=== PATIENT | female | born 1945 | race Caucasian/White ===

== ENCOUNTER → 2016-10-30 | Outpatient (CLI) | payer MEDICARE, OTHER ==
[~2016-10-30] MED LIST: AMLO5TAB4 PO; ASPI-664 PO; GLIP5TAB13 PO; HYD25 PO; LOSA50TA6 PO; METF500T4 PO; METO-429 PO; OMEP20CA16 PO; PRAV40TA76 PO
--- NOTE | 2016-10-30 23:14 | RADRPT ---
PROCEDURE: US bilateral lower extremity arteries. CLINICAL INDICATION: Bilateral leg pain. Claudication that interferes significantly with the caitlin ent's lifestyle. TECHNIQUE: Multiple longitudinal and transverse images of the bilateral lower extremity arteries w ere obtained with olivera scale, pulsed Doppler, and color Doppler imaging. COMPARISON: No prior studies are available for comparison. FINDINGS: Right ELECTRIC TAPE SLITTER:66 cm/sec PSFA:59 cm/sec MSFA:52 cm/sec DSFA:42 cm/sec POP:75 cm/sec BREWERY WORKER:42 cm/sec DPA:14 cm/sec Left ELECTRIC TAPE SLITTER:43 cm/sec PSFA:54 cm/sec MSFA:57 cm/sec DSFA:35 cm/sec POP:42 cm/sec BREWERY WORKER:16 cm/sec DPA:14 cm/sec The right ankle-brachial index is 1.49 and the left ankle-brachial index is 1.53. On the right side, there is normal triphasic flow in the femoral and popliteal systems. Biphasic fl ow is present in the right calf arteries. On the left side, there is normal triphasic flow in the common femoral artery and superficial femora l artery. Biphasic flow is present in the left popliteal artery and calf arteries. IMPRESSION: 1. Abnormal flow in the right calf arteries, left popliteal artery, and left calf arteries. The fi ndings may indicate significant stenosis. Correlation with CT angiogram should be considered. 2. Otherwise unremarkable study. RPTAT: QQ .Higinio Lincoln MD, Date Time Electronically viewed and signed by .Hgiinio Lincoln MD, on 10/30/2016 23:14 .R/
--- NOTE | 2016-10-30 23:17 | RADRPT ---
PROCEDURE: XR Left Ankle. CLINICAL INDICATION: Left ankle pain. TECHNIQUE: 3 views. Frontal, lateral, and oblique. COMPARISON: None. FINDINGS: There is no fracture or dislocation. The soft tissues are normal. Articular surfaces are intact. There are plantar and posterior calcaneal spurs. There is no lytic or blastic lesion. There is no radiopaque foreign body. IMPRESSION: 1. Calcaneal spurs. 2. Otherwise unremarkable images of the left ankle. RPTAT: QQ .Higinio Lincoln MD, MD Date Time Electronically viewed and signed by .Higinio Lincoln MD, MD on 10/30/2016 23:17 .R/
--- NOTE | 2016-10-30 23:18 | RADRPT ---
PROCEDURE: XR Right Ankle. CLINICAL INDICATION: Right ankle pain. TECHNIQUE: 3 views. Frontal, lateral, and oblique. COMPARISON: None. FINDINGS: There is no fracture or dislocation. The soft tissues are normal. Articular surfaces are intact. There is a posterior calcaneal spur. There is no lytic or blastic lesion. There is no radiopaque foreign body. IMPRESSION: 1. Posterior calcaneal spur. 2. Otherwise normal images of the right ankle. RPTAT: QQ .Higinio Lincoln MD, MD Date Time Electronically viewed and signed by .iHginio Lincoln MD, on 10/30/2016 23:18 .R/
--- NOTE | 2016-10-30 23:20 | RADRPT ---
PROCEDURE: XR Left Foot. CLINICAL INDICATION: Left foot pain. TECHNIQUE: Three views. Frontal, lateral, and oblique. COMPARISON: None. FINDINGS: There is an old nonunited fracture of the apophysis of the base of the fifth metatarsal. There is no acute fracture or dislocation. The soft tissues are unremarkable. There are degenerative changes of the first metatarsal phalangeal joint with joint space narrowing a nd osteophytes. There are plantar and posterior calcaneal spurs. There is no lytic or blastic lesion. There is no radiopaque foreign body. IMPRESSION: 1. 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 2. No acute fracture. 3. Degenerative changes of the first metatarsal phalangeal joint. 4. Plantar and posterior calcaneal spurs. 5. Otherwise unremarkable study. RPTAT: QQ .Higinio Lincoln MD, Date Time Electronically viewed and signed by .Higinio Lincoln MD, MD on 10/30/2016 23:20 .R/
--- NOTE | 2016-10-30 23:21 | RADRPT ---
PROCEDURE: XR Right Foot. CLINICAL INDICATION: Right foot pain. TECHNIQUE: Three views. Frontal, lateral, and oblique. COMPARISON: None. FINDINGS: There is no fracture or dislocation. The soft tissues are normal. The articular surfaces are intact. There are degenerative changes of the first metatarsal phalangea l joint with joint space narrowing and osteophytes. There is a posterior calcaneal spur. There is no lytic or blastic lesion. There is no radiopaque foreign body. IMPRESSION: 1. Degenerative changes of the first metatarsal phalangeal joint. 2. Posterior calcaneal spur. 3. No acute abnormality. RPTAT: QQ .Higinio Lincoln MD, MD Date Time Electronically viewed and signed by .Higinio Lincoln MD, on 10/30/2016 23:21 .R/
--- NOTE | 2016-10-30 23:22 | RADRPT ---
PROCEDURE: XR Left Shoulder. CLINICAL INDICATION: Left shoulder pain. TECHNIQUE: Three views. Frontal internal rotation, frontal external rotation, and scapular Y-view . COMPARISON: No prior study is available for comparison. FINDINGS: There is no fracture or dislocation. The soft tissues are normal. Articular surfaces are intact. There is no lytic or blastic lesion. There is no radiopaque foreign body. IMPRESSION: 1. Normal images of the left shoulder. RPTAT: QQ .Higinio Lincoln MD, MD Date Time Electronically viewed and signed by .Higinio Lincoln MD, on 10/30/2016 23:21 .R/
== END | disposition home or self-care (01) ==
LOC: VAS 16:13
PROVIDERS: ATTEND Internal Medicine
DX: I73.9 Peripheral vascular disease, unspecified (principal); M25.572 Pain in left ankle and joints of left foot; M25.571 Pain in right ankle and joints of right foot; M79.672 Pain in left foot; M79.671 Pain in right foot
CPT/HCPCS: 73030; 73610; 73630; 93922

== ENCOUNTER 2017-02-10 03:20 | Emergency (ER) | payer MEDICARE, OTHER ==
[~2017-02-10] VITALS: Ht 167.6 cm; Wt 75.5 kg
[2017-02-10 03:29] VITALS: Ht 167.6 cm; Wt 75.5 kg
[2017-02-10] MEDS ORDERED: SOD CHLORIDE 0.9% 500 ML IV STA (05:07)
[2017-02-10] MEDS ORDERED: LATA2.5D2 BOTH EYES (05:28)
--- NOTE | 2017-02-10 05:33 | ERD ---
ER Documentation Chief Complaint Date/Time DATE: 02/10/17 TIME: 05:28 Chief Complaint bilateral rib pain, cough x 1 week HPI 72-year-old female with a history of hypertension, CVA, and diabetes presenting to the ER for multiple complaints. She complains of 1 month of intermittent episodes of becoming very short of breath and having spasms all over her body where she feels like she cannot breathe. She also complains of occasional nausea. She was recently diagnosed with a UTI 2 days ago which she is taking medications for. Her primary care doctor is Dr. Saxena, with whom she has an appointment in 2 days. No fevers, chills, productive cough, chest pain, abdominal pain, or new headaches. ROS All systems reviewed and are negative except as per history of present illness. Medications Home Meds Reported Medications Latanoprost (Latanoprost) 2.5 Ml Drops, 1 DROP BOTH EYES QHS, #1 BOTTLE INSTILL 1 DROP DAILY INTO BOTH EYES IN THE EVENING 02/10/17 Metformin* (Glucophage*) 500 Mg Tab, 500 MG PO WITH LUNCH DINNER, #60 TAB 04/03/16 Pravastatin Sodium* (Pravastatin Sodium*) 40 Mg Tablet, 40 MG PO HS, TAB 04/03/16 Omeprazole* (Omeprazole*) 20 Mg Capsule.dr, 20 MG PO DAILY, CAP 03/13/15 Losartan Potassium* (Losartan Potassium*) 50 Mg Tablet, 50 MG PO BID, TAB 03/13/15 Metoprolol Tartrate* (Lopressor*) 50 Mg Tab, 50 MG PO BID, TAB 03/13/15 Amlodipine Besylate* (Norvasc*) 5 Mg Tablet, 5 MG PO DAILY, TAB 03/13/15 Discontinued Reported Medications Glipizide* (Glipizide*) 5 Mg Tablet, 5 MG PO AC BREAKFAST, TAB 04/03/16 Aspirin (Low Dose Aspirin) 81 Mg Tablet.dr, 81 MG PO DAILY 03/13/15 Hydrochlorothiazide* (Hydrochlorothiazide*) 25 Mg Tab, 25 MG PO DAILY, TAB 03/13/15 Allergies Allergies: Coded Allergies: Penicillins (Unverified Allergy, Mild, 02/10/17) cortisone (Unverified Allergy, Mild, 02/10/17) prednisone (Unverified Allergy, Mild, 02/10/17) Sulfa (Sulfonamide Antibiotics) (Unverified Allergy, Unknown, 02/10/17) PMhx/Soc History of Surgery: Yes (Hx of Cesarian Sections) Anesthesia Reaction: No Hx Neurological Disorder: Yes (STROKE WITH LEFT SIDED WEAKNESS) Hx Respiratory Disorders: Yes Hx Psychiatric Problems: No Hx Alcohol Use: No Hx Substance Use: No Hx Tobacco Use: Yes Smoking Status: Former smoker FmHx Family History: No diabetes Physical Exam Vitals Vital Signs Date Time Temp Pulse Resp B/P Pulse Ox O2 Delivery O2 Flow Rate FiO2 02/10/17 07:46 62 15 112/65 100 Room Air 02/10/17 07:30 66 15 118/63 100 Room Air 02/10/17 06:35 98.0 63 12 141/70 100 Room Air 02/10/17 05:36 97.9 63 15 143/65 100 02/10/17 03:29 98.6 96 10 170/80 98 Physical Exam Const: Well-appearing, no apparent distress Head: Atraumatic Eyes: Normal Conjunctiva ENT: Normal External Ears, Nose and Mouth. Neck: Full range of motion..~ No meningismus. Resp: Clear to auscultation bilaterally Cardio: Regular rate and rhythm, no murmurs Abd: Soft, non tender, non distended. Normal bowel sounds Skin: No petechiae or rashes Back: No midline or flank tenderness Ext: No cyanosis, or edema Neur: Awake and alert Psych: Normal Mood and Affect Result Diagram: 02/10/17 0520 02/10/17 0507 Results 24 hrs Laboratory Tests Test 02/10/17 05:07 02/10/17 05:20 Sodium Level 143mmol/L Potassium Level 4.1mmol/L Chloride Level 104mmol/L Carbon Dioxide Level 25mmol/L Anion Gap 18 Blood Urea Nitrogen 25mg/dl Creatinine 0.63mg/dl Glucose Level 152mg/dl Calcium Level 9.5mg/dl Troponin I 0.014ng/ml White Blood Count 12.310^3/ul Red Blood Count 4.0110^6/ul Hemoglobin 13.1g/dl Hematocrit 39.0% Mean Corpuscular Volume 97.3fl Mean Corpuscular Hemoglobin 32.7pg Mean Corpuscular Hemoglobin Concent 33.6g/dl Red Cell Distribution Width 12.5% Platelet Count 93664^3/UL Mean Platelet Volume 8.9fl Neutrophils % 75.9% Lymphocytes % 19.1% Monocytes % 3.7% Eosinophils % 0.8% Basophils % 0.2% Nucleated Red Blood Cells % 0.0/100WBC Neutrophils # 9.410^3/ul Lymphocytes # 2.410^3/ul Monocytes # 0.510^3/ul Eosinophils # 0.110^3/ul Basophils # 0.010^3/ul Nucleated Red Blood Cells # 0.010^3/ul Prothrombin Time 11.9Sec Prothrombin Time Ratio 0.9 INR International Normalized Ratio 0.88 Activated Partial Thromboplast Time 28.9Sec Current Medications Medications (Trade) Dose Ordered Sig/Doris Route PRN Reason Start Time Stop Time Status Last Admin Dose Admin Sodium Chloride (NS) 500 ml @ 500 mls/hr Q1H STAT IV 02/10/17 05:07 02/10/17 06:06 DC 02/10/17 05:32 Procedures/[facility] EKG: Rate/Rhythm: Normal Sinus Rhythm QRS, ST, T-waves: No changes consistent w/ acute ischemia, nonspecific T- wave abnormality Impression: No evidence of ischemia or arrhythmia Labs CBC: pending BMP: mild elevation in BUN, No evidence of electrolyte abnormality, renal failure, hypoglycemia, liver failure, or biliary obstruction Troponin within normal limits Chest x-ray: IMPRESSION: 1. Cardiomegaly. 2. Calcified thoracic aortic arch. 3. A shallow inspiration. 4. Mild bibasilar subsegmental atelectasis. [facility] Patient is presenting with nonspecific symptoms for 1 month. She is hemodynamically stable with an unremarkable exam. Basic labs and chest Xray were ordered. I have a low suspicion for ACS,PE, seizures, serious infection, or acute CVA. I believe the patient's symptoms are stable and she is appropriate for continued outpatient follow up and work up. Once her CBC results , I believe patient can go home with reassurance. Patient signed out to Dr. Cr, who will follow up on the CBC and if no serious abnormalities, may discharge patient home. Departure Diagnosis: Primary Impression: Dyspnea Dyspnea type: unspecified Qualified Code: R06.00 - Dyspnea, unspecified type Additional Impression: Muscle spasm Condition: Stable DAWSON GONCALVES MD Feb 10, 2017 05:33
--- NOTE | 2017-02-10 05:41 | RADRPT ---
PROCEDURE: CHEST - 1 VIEW CLINICAL INDICATION: 72-year-old female with shortness of breath. TECHNIQUE: A single frontal AP portable view of the chest was performed. The images were reviewed on a PACS workstation. COMPARISON: Chest x-ray May 04, 2016. FINDINGS: The radiograph is mildly rotated to the left. The cardiomediastinal silhouette is mildly enlarged. The thoracic aortic arch is calcified. There is a shallow inspiration. There is mild bibasilar meade bsegmental atelectasis. There is no evidence for an infiltrate. There is no evidence for congestiv e heart failure. There is no evidence for pneumothorax. The osseous structures are intact. IMPRESSION: 1. Cardiomegaly. 2. Calcified thoracic aortic arch. 3. A shallow inspiration. 4. Mild bibasilar subsegmental atelectasis. .South Quinteros MD, Date Time Electronically viewed and signed by .South Quinteros MD, on 02/10/2017 05:41 .Kirill/
[2017-02-10 05:44] LABS: BASOPHILS % 0.2 % (0.0-2.0); EOSINOPHILS # 0.1 10^3/ul (0.0-0.5); EOSINOPHILS % 0.8 % (0.0-7.0); HEMOGLOBIN 13.1 g/dl (12.0-16.0); LYMPHOCYTES # 2.4 10^3/ul (0.8-2.9); LYMPHOCYTES % 19.1 % (15.0-51.0); MEAN CORPUSCULAR HEMOGLOBIN 32.7 pg (29.0-33.0); MEAN CORPUSCULAR HGB CONC 33.6 g/dl (32.0-37.0); MEAN CORPUSCULAR VOLUME 97.3 fl (82.0-101.0); MEAN PLATELET VOLUME 8.9 fl (7.4-10.4); MONOCYTE # 0.5 10^3/ul (0.3-0.9); MONOCYTES % 3.7 % (0.0-11.0); NEUTROPHIL # 9.4 10^3/ul (1.6-7.5); NEUTROPHILS % 75.9 % (39.0-77.0); PLATELET COUNT 327 10^3/UL (140-415); RED BLOOD COUNT 4.01 10^6/ul (4.20-5.40); RED CELL DISTRIBUTION WIDTH 12.5 % (11.5-14.5); WHITE BLOOD COUNT 12.3 10^3/ul (4.8-10.8)
[2017-02-10 05:59] LABS: INR 0.88; PARTIAL THROMBOPLASTIN TIME 28.9 Sec (25.0-35.0); PROTIME 11.9 Sec (12.2-14.2); PT RATIO 0.9
[2017-02-10 06:07] LABS: CALCIUM 9.5 mg/dl (8.4-10.2); CREATININE 0.63 mg/dl (0.44-1.00); POTASSIUM 4.1 mmol/L (3.5-5.1)
[2017-02-10 06:23] LABS: TROPONIN-I 0.014 ng/ml (0.00-0.12)
[2017-02-10 06:35] VITALS: TEMP 98
[2017-02-10 07:46] VITALS: BP 112/65; PULSE 62; RESP 15
== END 2017-02-10 07:59 | disposition home or self-care (01) ==
LOC: E/R 03:20
DX: R06.00 Dyspnea, unspecified (principal); I10 Essential (primary) hypertension; E11.9 Type 2 diabetes mellitus without complications; R06.02 Shortness of breath; Z79.82 Long term (current) use of aspirin; Z79.84 Long term (current) use of oral hypoglycemic drugs; Z87.891 Personal history of nicotine dependence
CPT/HCPCS: 36415; 71010; 80048; 84484; 85025; 85610; 85730; 99285; J7040

== ENCOUNTER 2017-03-05 13:38 | Inpatient (IN) | payer MEDICARE, OTHER ==
[~2017-03-05] VITALS: Ht 170.2 cm; Wt 66.9 kg
[~2017-03-05 13:38] MED LIST changes: -ASPI-664 PO; -GLIP5TAB13 PO; -HYD25 PO; +LATA2.5D2 BOTH EYES
--- NOTE | 2017-03-05 14:05 | ERA ---
ER Documentation Chief Complaint Date/Time DATE: 03/05/17 TIME: 14:04 Chief Complaint "WEIRD LIP FEELING" WITH SHAKING AND SOB HPI The patient is a 72-year-old female, presenting to the ER because of bilateral jaw tightness, difficulty speaking, somewhat short of breath began about 10:30 AM. She feels anxious and thinks that she may be having a stroke. She denies similar symptoms previously, denies fever, chills, syncope, near syncope, neck pain, chest pain, abdominal pain, vomiting with dysuria, diarrhea. She does not smoke nor drink, walks with a walker Past medical history: Hypertension, diabetes mellitus, dyslipidemia, hypothyroidism, GERD, history of stroke with minimal left hemiparalysis Past medical history: 2 ROS All systems reviewed and are negative except as per history of present illness. Medications Home Meds Reported Medications Omeprazole* (Omeprazole*) 20 Mg Capsule.dr, 40 MG PO DAILY, #30 CAP 03/05/17 Latanoprost (Latanoprost) 2.5 Ml Drops, 1 DROP BOTH EYES QHS, #1 BOTTLE INSTILL 1 DROP DAILY INTO BOTH EYES IN THE EVENING 02/10/17 Metformin* (Glucophage*) 500 Mg Tab, 500 MG PO WITH LUNCH DINNER, #60 TAB 04/03/16 Losartan Potassium* (Losartan Potassium*) 50 Mg Tablet, 50 MG PO BID, TAB 03/13/15 Metoprolol Tartrate* (Lopressor*) 50 Mg Tab, 50 MG PO BID, TAB 03/13/15 Amlodipine Besylate* (Norvasc*) 5 Mg Tablet, 5 MG PO DAILY, TAB 03/13/15 Discontinued Reported Medications Pravastatin Sodium* (Pravastatin Sodium*) 40 Mg Tablet, 40 MG PO HS, TAB 04/03/16 Omeprazole* (Omeprazole*) 20 Mg Capsule.dr, 20 MG PO DAILY, CAP 03/13/15 Allergies Allergies: Coded Allergies: Penicillins (Unverified Allergy, Mild, 03/05/17) cortisone (Unverified Allergy, Mild, 03/05/17) prednisone (Unverified Allergy, Mild, 03/05/17) Sulfa (Sulfonamide Antibiotics) (Unverified Allergy, Unknown, 03/05/17) PMhx/Soc History of Surgery: Yes (Hx of Cesarian Sections) Anesthesia Reaction: No Hx Neurological Disorder: Yes (STROKE WITH LEFT SIDED WEAKNESS) Hx Respiratory Disorders: Yes Hx Psychiatric Problems: No Hx Alcohol Use: No Hx Substance Use: No Hx Tobacco Use: Yes Physical Exam Vitals Vital Signs Date Time Temp Pulse Resp B/P Pulse Ox O2 Delivery O2 Flow Rate FiO2 03/05/17 15:21 71 18 159/87 100 Room Air 03/05/17 14:41 0 03/05/17 13:42 98.7 74 18 196/91 98 Physical Exam Const: No acute distress. Head: Atraumatic. Eyes: Normal Conjunctiva. ENT: Normal External Ears, Nose and Mouth. Neck: Full range of motion. No meningismus. Resp: Clear to auscultation bilaterally. Cardio: Regular rate and rhythm. Abd: Soft, non distended, normal bowel sounds, non tender. Skin: No petechiae or rashes. Back: No midline or flank tenderness. Ext: No cyanosis, or edema. Neur: Awake and alert. Right upper and lower extremity 5/5, left upper extremity and lower extremity 4+ Psych: Anxious Result Diagram: 03/05/17 1425 03/05/17 1425 Results 24 hrs Laboratory Tests Test 03/05/17 14:25 03/05/17 15:17 White Blood Count 7.910^3/ul Red Blood Count 4.2710^6/ul Hemoglobin 13.6g/dl Hematocrit 41.7% Mean Corpuscular Volume 97.7fl Mean Corpuscular Hemoglobin 31.9pg Mean Corpuscular Hemoglobin Concent 32.6g/dl Red Cell Distribution Width 12.8% Platelet Count 52143^3/UL Mean Platelet Volume 9.0fl Neutrophils % 58.5% Lymphocytes % 31.2% Monocytes % 7.2% Eosinophils % 2.2% Basophils % 0.6% Nucleated Red Blood Cells % 0.0/100WBC Neutrophils # (Manual) 4.610^3/ul Lymphocytes # 2.510^3/ul Monocytes # 0.610^3/ul Eosinophils # 0.210^3/ul Basophils # 0.110^3/ul Nucleated Red Blood Cells # 0.010^3/ul Prothrombin Time 12.0Sec Prothrombin Time Ratio 0.9 INR International Normalized Ratio 0.89 Activated Partial Thromboplast Time 27.8Sec Sodium Level 139mmol/L Potassium Level 3.9mmol/L Chloride Level 102mmol/L Carbon Dioxide Level 30mmol/L Anion Gap 11 Blood Urea Nitrogen 15mg/dl Creatinine 0.53mg/dl Glucose Level 139mg/dl Calcium Level 9.9mg/dl Troponin I < 0.012ng/ml Bedside Glucose 128mg/dL Procedures/MD[facility] [place] [address] Radiology Main Line: [phone] DIAGNOSTIC IMAGING REPORT Patient: DEJAH SMITH : 1945 Age: 72 Sex: F MR #: [id number] DOS: 03/05/17 140 Ordering MD: MILI RAMESH MD Location: E/R Room/Bed: PROCEDURE: XR Chest. CLINICAL INDICATION: Stroke. Dyspnea. TECHNIQUE: Single frontal chest x-ray. COMPARISON: None. FINDINGS: The lungs are clear of acute infiltrates, edema, effusions, or masses. Calcific atherosclerosis of the aorta is present.. Cardiomegaly is present.. The osseous structures are intact. IMPRESSION: No acute cardiopulmonary disease. Cardiomegaly with calcified aorta. RPTAT: GG .Etienne Marshall MD, MD Date Time Electronically viewed and signed by .Etienne Marshall MD, MD on 03/05/2017 14:56 .L/ CC: MILI RAMESH MD [place] [id number] Radiology Main Line: [phone] DIAGNOSTIC IMAGING REPORT Patient: DEJAH SMITH : 1945 Age: 72 Sex: F MR #: [id number] DOS: 03/05/17 1405 Ordering MD: MILI RAMESH MD Location: E/R Room/Bed: PROCEDURE: CT head without intravenous contrast CLINICAL INDICATION: Stroke. COMPARISON: MRI 05/06/2016 and 05/08/2016. TECHNIQUE: Axial CT images from skull base to vertex with coronal and sagittal reformats. DOSE: The estimated administered radiation dose was CTDI vol = 40 mGy. DLP = 789 mGy-cm. One or more of the following dose reduction techniques were used: automated exposure control, adjustment of the mA and/or kV according to patient size, or use of iterative reconstruction. FINDINGS: Parenchyma: Encephalomalacia and gliosis in the right frontal lobe and right parietal related to remote anterior cerebral artery territory infarction. No acute hemorrhage, large territorial infarction, or mass. Mild amount of periventricular and subcortical white matter hypodensity, a nonspecific finding often associated with chronic microangiopathy. Ventricles: Proportionate ex vacuo dilation of the right lateral ventricle. No ventricular effacement Extra-axial spaces: No herniation or midline shift. Paranasal sinuses: Clear. Mastoids and middle ears: Clear. Visualized orbits: Normal. Vessels: Moderate calcified atherosclerotic arterial plaque. Bones: Mild hyperostosis frontalis interna. Extracranial soft tissues: Normal. Additional comment: None. IMPRESSION: 1. No acute hemorrhage or large territorial infarction. 2. Old infarction in the right anterior cerebral artery territory. If there is high clinical suspicion for acute infarction, MRI is recommended for further evaluation because as a more sensitive examination. RPTAT: PP Physician Jose Date Time Electronically viewed and signed by Physician Jose on 03/05/2017 16: 20 LG/ CC: MILI RAMESH MD EKG: Read by emergency physician Rate/Rhythm: Normal Sinus Rhythm 64 beats/min QRS, ST, T-waves: No ST elevation, no T inversion. LAD, nonspecific T abnormality Impression: Abnormal EKG MEDICAL MAKING DECISION: The patient is a 72-year-old female, presenting to the ER because of dysphonia, concerning for TIA The differential diagnoses considered include but are not limited to TIA, impending CVA, anxiety attack, panic attack Departure Diagnosis: Primary Impression: TIA (transient ischemic attack) Condition: Stable Comments I discussed the findings with the patient. I discussed the patient with his physician Dr.Di Aburto who was made aware of the lab, the treatment, the patient condition. The patient is admitted to [facility] for 24 hr obs MILI RAMESH MD Mar 05, 2017 14:05
[2017-03-05 14:45] LABS: BASOPHIL # 0.1 10^3/ul (0.0-0.1); BASOPHILS % 0.6 % (0.0-2.0); EOSINOPHILS # 0.2 10^3/ul (0.0-0.5); EOSINOPHILS % 2.2 % (0.0-7.0); HEMATOCRIT 41.7 % (37.0-47.0); HEMOGLOBIN 13.6 g/dl (12.0-16.0); LYMPHOCYTES # 2.5 10^3/ul (0.8-2.9); LYMPHOCYTES % 31.2 % (15.0-51.0); MEAN CORPUSCULAR HEMOGLOBIN 31.9 pg (29.0-33.0); MEAN CORPUSCULAR HGB CONC 32.6 g/dl (32.0-37.0); MEAN CORPUSCULAR VOLUME 97.7 fl (82.0-101.0); MONOCYTE # 0.6 10^3/ul (0.3-0.9); MONOCYTES % 7.2 % (0.0-11.0); NEUTROPHILS % 58.5 % (39.0-77.0); PLATELET COUNT 302 10^3/UL (140-415); RED BLOOD COUNT 4.27 10^6/ul (4.20-5.40); RED CELL DISTRIBUTION WIDTH 12.8 % (11.5-14.5); WHITE BLOOD COUNT 7.9 10^3/ul (4.8-10.8)
[2017-03-05 14:55] LABS: INR 0.89; PT RATIO 0.9
[2017-03-05 14:56] LABS: PARTIAL THROMBOPLASTIN TIME 27.8 Sec (25.0-35.0)
[2017-03-05 14:57] LABS: ANION GAP 11 (8-16); BLOOD UREA NITROGEN 15 mg/dl (7-20); CALCIUM 9.9 mg/dl (8.4-10.2); CARBON DIOXIDE 30 mmol/L (21-31); CHLORIDE 102 mmol/L (97-110); CREATININE 0.53 mg/dl (0.44-1.00); GLUCOSE 139 mg/dl (70-220); POTASSIUM 3.9 mmol/L (3.5-5.1); SODIUM 139 mmol/L (135-144)
--- NOTE | 2017-03-05 14:57 | RADRPT ---
PROCEDURE: XR Chest. CLINICAL INDICATION: Stroke. Dyspnea. TECHNIQUE: Single frontal chest x-ray. COMPARISON: None. FINDINGS: The lungs are clear of acute infiltrates, edema, effusions, or masses. Calcific atherosclerosis of t he aorta is present.. Cardiomegaly is present.. The osseous structures are intact. IMPRESSION: No acute cardiopulmonary disease. Cardiomegaly with calcified aorta. RPTAT: GG .Etienne Marshall MD, MD Date Time Electronically viewed and signed by .Etienne Marshall MD, on 03/05/2017 14:56 .L/
[2017-03-05 15:13] LABS: TROPONIN-I < 0.012 ng/ml (0.00-0.12)
--- NOTE | 2017-03-05 16:21 | RADRPT ---
PROCEDURE: CT head without intravenous contrast CLINICAL INDICATION: Stroke. COMPARISON: MRI 05/06/2016 and 05/08/2016. TECHNIQUE: Axial CT images from skull base to vertex with coronal and sagittal reformats. DOSE: The estimated administered radiation dose was CTDI vol = 40 mGy. DLP = 789 mGy-cm. One or mor e of the following dose reduction techniques were used: automated exposure control, adjustment of th e mA and/or kV according to patient size, or use of iterative reconstruction. FINDINGS: Parenchyma: Encephalomalacia and gliosis in the right frontal lobe and right parietal related to rem ote anterior cerebral artery territory infarction. No acute hemorrhage, large territorial infarctio n, or mass. Mild amount of periventricular and subcortical white matter hypodensity, a nonspecific f inding often associated with chronic microangiopathy. Ventricles: Proportionate ex vacuo dilation of the right lateral ventricle. No ventricular effaceme nt Extra-axial spaces: No herniation or midline shift. Paranasal sinuses: Clear. Mastoids and middle ears: Clear. Visualized orbits: Normal. Vessels: Moderate calcified atherosclerotic arterial plaque. Bones: Mild hyperostosis frontalis interna. Extracranial soft tissues: Normal. Additional comment: None. IMPRESSION: 1. No acute hemorrhage or large territorial infarction. 2. Old infarction in the right anterior cerebral artery territory. If there is high clinical suspicion for acute infarction, MRI is recommended for further evaluation because as a more sensitive examination. RPTAT: PP Physician Jose Date Time Electronically viewed and signed by Physician Jose on 03/05/2017 16:20 LG/
[2017-03-05] MEDS ORDERED: OMEP20CA16 PO (16:27)
[2017-03-05 18:23] VITALS: Ht 170.2 cm; Wt 66.9 kg
[2017-03-05] MEDS ORDERED: ONDANSETRON 4 MG INJ IV PRN (19:00)
[2017-03-05] MEDS ORDERED: ACETAMINOPHEN 325 MG TAB PO PRN (19:00)
[2017-03-05] MEDS ORDERED: NACL 0.9% 3 ML SYG IV SCH (19:00)
[2017-03-05] MEDS ORDERED: GLUCOSE GEL 15 GRAM TUBE BUCCAL PRN (19:30)
[2017-03-05] MEDS ORDERED: DEXTROSE 50% 50 ML SYRINGE IV PRN ×2 (19:30)
[2017-03-05] MEDS ORDERED: GLUCOSE GEL 15 GRAM TUBE PO PRN ×2 (19:30)
[2017-03-05] MEDS ORDERED: GLUCAGON 1 MG INJ IM PRN (19:30)
[2017-03-05 19:45] VITALS: BP 140/70; RESP 19
[2017-03-05 20:02] VITALS: PULSE 70
[2017-03-05] MEDS ORDERED: LORAZEPAM 2 MG INJ IV ONE (20:30)
[2017-03-05] MEDS: INSULIN ASPART [NOVOLOG] 3 ML PEN SC SCH (21:00)
[2017-03-05] MEDS: LOSARTAN 50 MG TAB PO SCH (21:26)
[2017-03-05] MEDS: LATANOPROST 0.005% 2.5 ML OPH BOTH EYES SCH (21:26)
[2017-03-05] MEDS: METOPROLOL 50 MG TAB PO SCH (21:30)
[2017-03-05 23:53] VITALS: BP 114/59; RESP 19
[2017-03-06] VITALS (12 sets, daily range): BP systolic 90–147; BP diastolic 50–75; PULSE 55–77; RESP 17–20
[2017-03-06] MEDS ORDERED: VITAMIN A & D 5 GM OINT PACKET TOP ONE (00:21)
[2017-03-06] MEDS ORDERED: ACCU-CHEK XX SCH (02:00)
[2017-03-06] MEDS: ACCU-CHEK XX SCH (02:00)
--- NOTE | 2017-03-06 02:40 | HP ---
DATE OF ADMISSION: 03/05/2017 REASON FOR ADMISSION: "I think I am having a stroke." HISTORY OF PRESENT ILLNESS: This 72-year-old female says that she was in her usual state of health until today when she developed some jaw tightness, difficulty speaking, some left hand tingling. The patient has a history of 2 previous strokes. She developed left-sided weakness after the stroke. She has recovered from those strokes. However, she still has some minimal left hemiparesis. The patient is awake and alert at this time. She is able to give a history. She is oriented x3. Her brother, who lives with her, is in the room with her, and is able to give some of her history. The patient has been having shortness of breath for months. She said that she became more short of breath today. The patient denies fever, chills, syncope, near syncope, headache, and neck pain. She usually walks with a walker but was not walking today. PAST MEDICAL HISTORY: Remarkable for type 2 diabetes mellitus, hypertension, congestive heart failure, gastroesophageal reflux disease, hyperlipidemia, diabetic nephropathy, skin cancer, chronic kidney disease stage 3, diabetic neuropathy, and previous CVA x2. PAST SURGICAL HISTORY: Cholecystectomy 2006, appendectomy, right ear surgery, and skin cancers removed from face and left ear. FAMILY HISTORY: Father is of diabetes. Mother of unknown causes, but was in her late 90s. Siblings, cancer of the colon, TB, diabetes. SOCIAL HISTORY: The patient does not smoke. She is a former smoker. She has not smoked for more than 10 years. She does not drink alcohol. CURRENT MEDICATION: Includes the followin. Allopurinol 200 mg a day. 2. Omeprazole 40 mg a day. 3. Metformin 500 mg twice a day. 4. Losartan 50 mg twice a day. 5. Metoprolol 50 mg twice a day. 6. Amlodipine 5 mg a day. ALLERGIES: CODEINE, ERYTHROMYCIN, PENICILLIN. PHYSICAL EXAMINATION: GENERAL: At this time, reveals a thin female in no apparent distress. VITAL SIGNS: Temperature 99, pulse of 86, respirations 19, blood pressure 140/70, O2 sat 97 percent on room air. HEENT: Head normocephalic. Eyes, extraocular muscles intact. Nose and mouth are normal. NECK: Supple. No neck vein distention. LUNGS: Clear to auscultation. HEART: Regular rhythm. No murmurs, gallops, or rubs. ABDOMEN: Soft, nontender. No masses or megaly. EXTREMITIES: No peripheral edema. NEUROLOGIC: Grossly intact. No obvious focal neurologic deficits. IMPRESSION: 1. This patient presents now with left hand tingling with some difficulties speaking. The patient, at this time, has no obvious focal neurologic deficits on physical examination. She says that she "feels like I am having a stroke." She has had strokes in the past. She has recovered significantly from her previous strokes. CAT scan of the head done in the emergency room did not show anything new, just an old infarct in the right anterior cerebral artery territory. I will order an MRI of the brain. 2. Shortness of breath. There is no obvious reason for her shortness of breath. Her chest x-ray is normal. Her O2 sat is normal on room air. She does not seem short of breath on the physical examination. I suspect this may be a manifestation of anxiety. 3. Type 2 diabetes mellitus. 4. Hypertension. 5. Gastroesophageal reflux disease. 6. Hyperlipidemia. PLAN: 1. MRI of the brain. 2. Neurology consultation with Dr. Lobito Centeno, who knows the patient. 3. Resume routine medications. 4. Further neuro workup as per Dr. Centeno. Dictated By: Wiley Cameron MD /vladimir/sunni /Document#: [id number] LEYDI
[2017-03-06] MEDS ORDERED: ALPRAZOLAM 0.25 MG TAB PO ONE (04:00)
--- NOTE | 2017-03-06 06:00 | RADRPT ---
PROCEDURE: US Carotids. CLINICAL INDICATION: CVA, Bruit TECHNIQUE: Multiple sonographic of the carotid arteries were obtained utilizing olivera scale imaging . Color and Doppler imaging was performed. The images were reviewed on a PACS workstation. COMPARISON: No prior studies are available for comparison. FINDINGS: RIGHT: CCA 60.7 cm/sec Prox ICA 35.2 cm/sec Mid ICA 75.6 cm/sec Dist ICA 35.9 cm/sec ECA 73.2 cm/sec ICA/CCA 1.3 LEFT: CCA 75.9 cm/sec Prox ICA 40.3 cm/sec Mid ICA 65.3 cm/sec Dist ICA 77.9 cm/sec ECA 72.9 cm/sec ICA/CCA 1.2 Antegrade flow is seen within the vertebral arteries bilaterally. Mild plaque is seen within the car otid system bilaterally. However, no evidence for hemodynamically significant stenosis or occlusion is identified. IMPRESSION: 1. Mild soft and calcific plaque without evidence for hemodynamically significant stenosis or occlu светлана by NASCET criteria. 2. Antegrade flow seen within the vertebral arteries bilaterally. RPTAT: HH .Christen Moreland MD, Date Time Electronically viewed and signed by .Christen Moreland MD, on 03/06/2017 05:59 .G/
[2017-03-06] MEDS: INSULIN ASPART [NOVOLOG] 3 ML PEN SC SCH ×4 (08:00→21:00)
[2017-03-06 08:02] LABS: BASOPHILS % 0.4 % (0.0-2.0); EOSINOPHILS # 0.2 10^3/ul (0.0-0.5); EOSINOPHILS % 1.9 % (0.0-7.0); HEMATOCRIT 36.9 % (37.0-47.0); HEMOGLOBIN 11.8 g/dl (12.0-16.0); LYMPHOCYTES # 4.2 10^3/ul (0.8-2.9); LYMPHOCYTES % 40.6 % (15.0-51.0); MEAN CORPUSCULAR HEMOGLOBIN 31.4 pg (29.0-33.0); MEAN CORPUSCULAR VOLUME 98.1 fl (82.0-101.0); MEAN PLATELET VOLUME 9.3 fl (7.4-10.4); MONOCYTE # 0.9 10^3/ul (0.3-0.9); MONOCYTES % 8.5 % (0.0-11.0); NEUTROPHILS % 48.4 % (39.0-77.0); PLATELET COUNT 287 10^3/UL (140-415); RED BLOOD COUNT 3.76 10^6/ul (4.20-5.40); RED CELL DISTRIBUTION WIDTH 12.9 % (11.5-14.5); WHITE BLOOD COUNT 10.2 10^3/ul (4.8-10.8)
[2017-03-06 08:27] LABS: ADD UMIC YES; UR ASCORBIC ACID NEGATIVE (NEGATIVE); UR BACTERIA FEW /HPF (NONE SEEN); UR BILIRUBIN (Dip) NEGATIVE (NEGATIVE); UR BLOOD (Dip) NEGATIVE (NEGATIVE); UR CLARITY SLIGHTLY CLOUDY (CLEAR); UR COLOR YELLOW (YELLOW); UR GLUCOSE (Dip) NEGATIVE (NEGATIVE); UR KETONES (Dip) NEGATIVE (NEGATIVE); UR LEUKOCYTE ESTERASE (Dip) TRACE Leu/ul (NEGATIVE); UR NITRITE (Dip) NEGATIVE (NEGATIVE); UR RBC 3 /HPF (0-5); UR SPECIFIC GRAVITY (Dip) 1.019 (1.003-1.030); UR SQUAMOUS EPITHELIAL CELL FEW /HPF (FEW); UR TOTAL PROTEIN (Dip) NEGATIVE (NEGATIVE); UR UROBILINOGEN (Dip) NEGATIVE (NEGATIVE)
[2017-03-06 08:35] LABS: ALBUMIN 3.5 g/dl (3.3-4.9); ALBUMIN/GLOBULIN RATIO 1.29; BILIRUBIN,INDIRECT 0.2 mg/dl (0-1.1); BILIRUBIN,TOTAL 0.2 mg/dl (0.2-1.3); CALCIUM 9.3 mg/dl (8.4-10.2); CREATININE 0.6 mg/dl (0.44-1.00); POTASSIUM 4.1 mmol/L (3.5-5.1); TOTAL PROTEIN 6.2 g/dl (6.1-8.1)
--- NOTE | 2017-03-06 09:42 | RADRPT ---
PROCEDURE: MR Brain without intravenous contrast CLINICAL INDICATION: Transient ischemic attack. COMPARISON: CT 03/05/2017 and MRI 05/06/2016. TECHNIQUE: Multiplanar multi-sequence images of the brain were obtained. Images acquired on a 3.0 T esla magnet. FINDINGS: Parenchyma: Small focus of restricted diffusion within the right superior frontal gyrus at the anter ior middle cerebral artery borderzone territory (series 4, image 18). No acute hemorrhage. Chronic encephalomalacia, gliosis, hemosiderin, and gyral high T1 signal indicating cortical necrosi s related to remote anterior cerebral artery territory infarction in the right frontal lobe. Pineal calcification. The pituitary gland measures 13 mm in anterior-posterior dimension. Ventricles: Proportionate ex vacuo ventricular dilation of the right lateral ventricle. Extra-axial spaces: No herniation or midline shift. Orbits: Normal. Major intracranial flow voids: Preserved. Paranasal sinuses: Mild paranasal sinus mucosal thickening. Small mucous retention cyst or polyp in the right maxillary sinus. Mastoids and middle ears: Clear. Bones: Normal. Extracranial soft tissues: Normal. Additional comment: None. IMPRESSION: 1. Small acute infarction in the right superior frontal gyrus. No associated hemorrhage. 2. Chronic sequela of old right anterior cerebral artery territory infarction. Dr. Beverly discussed findings with Wiley Coleman , the clinician responsible for this patient, via telephone at 03/06/2017 9:41:26 AM with read back confirmation. RPTAT: PP Physician Jose Date Time Electronically viewed and signed by Physician Jose on 03/06/2017 09:42 LG/
[2017-03-06] MEDS: METOPROLOL 50 MG TAB PO SCH ×2 (10:29→21:00)
[2017-03-06] MEDS: PANTOPRAZOLE (EC) 40 MG TAB PO SCH (10:29)
[2017-03-06] MEDS: LOSARTAN 50 MG TAB PO SCH ×2 (10:29→21:00)
[2017-03-06] MEDS: AMLODIPINE 5 MG TAB PO SCH (10:30)
--- NOTE | 2017-03-06 13:09 | PN ---
Date/Time of Note Date/Time of Note DATE: 03/06/17 TIME: 13:03 Assessment/Plan VTE Prophylaxis VTE Prophylaxis Intervention: LMWH Lines/Catheters IV [facility]ter [facility]from [facility] Peripheral IV Urinary Cath still in place: No Assessment/Plan Chief Complaint/Hosp Course 1. She has had an acute CVA. Her MRI of the brain shows a small acute infarction in the right superior frontal gyrus. This is near the area where she had a previous stroke. According to the patient's brother she has been on Aggrenox; however, this is not included in her preadmission medication reconciliation. I will order this starting today. She also has not been taking atorvastatin according to her preadmission medication list. I will start this today. The patient is to be seen by her neurologist Dr. Centeno . I did speak to him by telephone yesterday and notified him that she is here. 2. The patient is lethargic this afternoon because she received some Xanax this morning. I have ordered physical therapy and occupational therapy for her. 3. Continue current medication, physical therapy and occupational therapy. Await follow-up by a neurologist. Problems: Subjective 24 Hr Interval Summary Free Text/Dictation The patient is sleeping. She did take a Xanax this morning. She also had Ativan when she had her MRI done early in the morning. The MRI does show a new small acute infarction in the brain. Constitutional: no complaints Gastrointestinal: no complaints Genitourinary: no complaints Musculoskeletal: no complaints Neurologic: no complaints Exam/Review of Systems Vital Signs Vitals Vital Signs Date Time Temp Pulse Resp B/P Pulse Ox O2 Delivery O2 Flow Rate FiO2 03/06/17 12:07 62 03/06/17 11:36 97.9 18 123/59 95 03/05/17 17:40 Room Air 03/05/17 14:41 0 Intake and Output 03/05/17 03/05/17 03/06/17 15:00 23:00 07:00 Intake Total 1000 ml Balance 1000 ml Exam Constitutional: frail, oriented Respiratory: clear to auscultation, normal air movement Gastrointestinal: soft Musculoskeletal: nl extremities to inspection Neurological: lethargic Results Result Diagram: 03/06/17 0725 03/06/17 0725 Results 24 hrs Laboratory Tests Test 03/05/17 14:25 03/05/17 15:17 03/05/17 20:47 03/06/17 02:00 White Blood Count 7.9 # Red Blood Count 4.27 Hemoglobin 13.6 Hematocrit 41.7 Mean Corpuscular Volume 97.7 Mean Corpuscular Hemoglobin 31.9 Mean Corpuscular Hemoglobin Concent 32.6 Red Cell Distribution Width 12.8 Platelet Count 302 Mean Platelet Volume 9.0 Neutrophils % 58.5 Lymphocytes % 31.2 Monocytes % 7.2 Eosinophils % 2.2 Basophils % 0.6 Nucleated Red Blood Cells % 0.0 Neutrophils # (Manual) 4.6 Lymphocytes # 2.5 Monocytes # 0.6 Eosinophils # 0.2 Basophils # 0.1 Nucleated Red Blood Cells # 0.0 Prothrombin Time 12.0 L Prothrombin Time Ratio 0.9 INR International Normalized Ratio 0.89 Activated Partial Thromboplast Time 27.8 Sodium Level 139 Potassium Level 3.9 Chloride Level 102 Carbon Dioxide Level 30 Anion Gap 11 Blood Urea Nitrogen 15 Creatinine 0.53 Glucose Level 139 Calcium Level 9.9 Troponin I < 0.012 Bedside Glucose 128 161 Urine Color YELLOW Urine Clarity SLIGHTLY CLOUDY A Urine pH 5.0 Urine Specific [place] 1.019 Urine Ketones NEGATIVE Urine Nitrite NEGATIVE Urine Bilirubin NEGATIVE Urine Urobilinogen NEGATIVE Urine Leukocyte Esterase TRACE A Urine Microscopic RBC 3 Urine Microscopic WBC 15 H Urine Squamous Epithelial Cells FEW Urine Bacteria FEW A Urine Hemoglobin NEGATIVE Urine Glucose NEGATIVE Urine Total Protein NEGATIVE Test 03/06/17 07:25 03/06/17 08:03 03/06/17 12:04 White Blood Count 10.2 # Red Blood Count 3.76 L Hemoglobin 11.8 L Hematocrit 36.9 L Mean Corpuscular Volume 98.1 Mean Corpuscular Hemoglobin 31.4 Mean Corpuscular Hemoglobin Concent 32.0 Red Cell Distribution Width 12.9 Platelet Count 287 Mean Platelet Volume 9.3 Neutrophils % 48.4 Lymphocytes % 40.6 Monocytes % 8.5 Eosinophils % 1.9 Basophils % 0.4 Nucleated Red Blood Cells % 0.0 Neutrophils # (Manual) 5.0 Lymphocytes # 4.2 H Monocytes # 0.9 Eosinophils # 0.2 Basophils # 0.0 Nucleated Red Blood Cells # 0.0 Sodium Level 139 Potassium Level 4.1 Chloride Level 100 Carbon Dioxide Level 27 Anion Gap 16 Blood Urea Nitrogen 29 #H Creatinine 0.60 Glucose Level 133 Hemoglobin A1c 6.3 H Calcium Level 9.3 Total Bilirubin 0.2 Direct Bilirubin 0.00 Indirect Bilirubin 0.2 Aspartate Amino Transf (AST/SGOT) 13 L Alanine Aminotransferase (ALT/SGPT) 29 Alkaline Phosphatase 61 Total Protein 6.2 Albumin 3.5 Globulin 2.70 Albumin/Globulin Ratio 1.29 Bedside Glucose 148 140 Medications Medications Current Medications Ondansetron HCl (Zofran Inj) 4 mg Q6H PRN IV NAUSEA AND/OR VOMITING; Start at 19:00 Acetaminophen (Tylenol Tab) 650 mg Q6H PRN PO PAIN LEVEL 1-3 OR FEVER; Start at 19:00 Amlodipine Besylate (Norvasc) 5 mg DAILY PO Last administered on 03/06/17 10: 30; Admin Dose 5 MG; Start 03/06/17 at 09:00 Latanoprost (Xalatan) 1 drop QHS BOTH EYES Last administered on 03/05/17 21:26 ; Admin Dose 1 DROP; Start 03/05/17 at 21:00 Losartan Potassium (Cozaar) 50 mg BID PO Last administered on 03/06/17 10:29; Admin Dose 50 MG; Start 03/05/17 at 21:00 Metoprolol Tartrate (Lopressor) 50 mg BID PO Last administered on 03/06/17 10: 29; Admin Dose 50 MG; Start 03/05/17 at 21:00 Pantoprazole (Protonix Tab) 40 mg DAILY@06 PO Last administered on 03/06/17 10 :29; Admin Dose 40 MG; Start 03/06/17 at 06:00 Miscellaneous Information 1 ea NOTE XX ; Start 03/05/17 at 19:30 Glucose (Glutose) 15 gm Q15M PRN PO DECREASED GLUCOSE; Start 03/05/17 at 19:30 Glucose (Glutose) 22.5 gm Q15M PRN PO DECREASED GLUCOSE; Start 03/05/17 at 19: 30 Dextrose (D50w Syringe) 25 ml Q15M PRN IV DECREASED GLUCOSE; Start 03/05/17 at 19:30 Dextrose (D50w Syringe) 50 ml Q15M PRN IV DECREASED GLUCOSE; Start 03/05/17 at 19:30 Glucagon (Glucagen) 1 mg Q15M PRN IM DECREASED GLUCOSE; Start 03/05/17 at 19:30 Glucose (Glutose) 15 gm Q15M PRN BUCCAL DECREASED GLUCOSE; Start 03/05/17 at 19 :30 Diagnostic Test (Pha) (Accu-Chek) 1 ea 02 XX ; Start 03/06/17 at 02:00 Dipyridamole/ Aspirin (Aggrenox) 1 cap BID PO ; Start 03/06/17 at 21:00 ILAN CASTELAN MD Mar 06, 2017 13:08
[2017-03-06] MEDS: metFORMIN 500 MG TAB PO SCH ×2 (13:49→17:42)
[2017-03-06] MEDS: ENOXAPARIN 40 MG/0.4 ML SYG SC SCH (13:52)
[2017-03-06 14:44] LABS: CHOL/HDL RATIO 3.8 RATIO
[2017-03-06] MEDS: LEVETIRACETAM 500 MG TAB PO SCH (21:42)
[2017-03-06] MEDS: ATORVASTATIN 40 MG TAB PO SCH (21:42)
[2017-03-06] MEDS: DIPYRIDAMOLE/ASPIRIN (SR) CAP PO SCH (21:43)
[2017-03-06] MEDS: LATANOPROST 0.005% 2.5 ML OPH BOTH EYES SCH (22:12)
[2017-03-07] VITALS (11 sets, daily range): BP systolic 112–124; BP diastolic 57–62; PULSE 63–73; RESP 16–19
[2017-03-07] MEDS: ACCU-CHEK XX SCH (02:00)
[2017-03-07] MEDS: PANTOPRAZOLE (EC) 40 MG TAB PO SCH (06:05)
[2017-03-07] MEDS: INSULIN ASPART [NOVOLOG] 3 ML PEN SC SCH ×4 (08:00→21:05)
[2017-03-07] MEDS: LOSARTAN 50 MG TAB PO SCH ×2 (08:49→21:00)
[2017-03-07] MEDS: AMLODIPINE 5 MG TAB PO SCH (08:49)
[2017-03-07] MEDS: DIPYRIDAMOLE/ASPIRIN (SR) CAP PO SCH ×2 (08:49→21:06)
[2017-03-07] MEDS: METOPROLOL 50 MG TAB PO SCH ×2 (08:49→21:06)
[2017-03-07] MEDS: LEVETIRACETAM 500 MG TAB PO SCH ×2 (08:49→21:06)
[2017-03-07] MEDS: ENOXAPARIN 40 MG/0.4 ML SYG SC SCH (08:50)
[2017-03-07] MEDS: metFORMIN 500 MG TAB PO SCH ×2 (12:27→17:38)
--- NOTE | 2017-03-07 12:59 | CONS ---
Date/Time of Note Date/Time of Note DATE: 03/07/17 TIME: 12:54 Assessment/Plan Assessment/Plan Chief Complaint/Hosp Course 1. She has had an acute CVA. Her MRI of the brain shows a small acute infarction in the right superior frontal gyrus. This is near the area where she had a previous stroke. According to the patient's brother she has been on Aggrenox; however, this is not included in her preadmission medication reconciliation. I will order this starting today. She also has not been taking atorvastatin according to her preadmission medication list. I will start this today. The patient was seen by her neurologist Dr. Centeno . He diagnosed her with a seizure disorder and started her on Keppra 500 mg BID . 2. The patient is lethargic this afternoon because she received some Xanax this morning. I have ordered physical therapy and occupational therapy for her. 3. Continue current medication, physical therapy and occupational therapy. Will start discharge planning . Problems: Consultation Date/Type/Reason Admit Date/Time Mar 05, 2017 at 17:00 Initial Consult Date 24 HR Interval Summary Free Text/Dictation She is feeling better today and is more awake . Constitutional: improved, no complaints Exam/Review of Systems Vital Signs Vitals Vital Signs Date Time Temp Pulse Resp B/P Pulse Ox O2 Delivery O2 Flow Rate FiO2 03/07/17 12:07 68 03/07/17 12:04 97.6 17 122/62 99 03/06/17 21:41 Room Air 03/05/17 14:41 0 Intake and Output 03/06/17 03/06/17 03/07/17 15:00 23:00 07:00 Intake Total 900 ml 300 ml Balance 900 ml 300 ml Exam Constitutional: alert, frail, oriented Psych: anxiety Respiratory: clear to auscultation, normal air movement Cardiovascular: regular rate and rhythm Gastrointestinal: non-tender, soft Musculoskeletal: nl extremities to inspection Neurological: BOX BENDER II-XII intact, nl mental status Results Result Diagram: 03/06/17 0725 03/06/17 0725 Results 24 hrs Laboratory Tests Test 03/06/17 17:14 03/06/17 21:48 03/07/17 00:38 03/07/17 08:17 Bedside Glucose 164 158 173 140 Test 03/07/17 11:51 Bedside Glucose 212 Medications Medications Current Medications Ondansetron HCl (Zofran Inj) 4 mg Q6H PRN IV NAUSEA AND/OR VOMITING; Start at 19:00 Acetaminophen (Tylenol Tab) 650 mg Q6H PRN PO PAIN LEVEL 1-3 OR FEVER; Start at 19:00 Amlodipine Besylate (Norvasc) 5 mg DAILY PO Last administered on 03/07/17 08: 49; Admin Dose 5 MG; Start 03/06/17 at 09:00 Latanoprost (Xalatan) 1 drop QHS BOTH EYES Last administered on 03/06/17 22:12 ; Admin Dose 1 DROP; Start 03/05/17 at 21:00 Losartan Potassium (Cozaar) 50 mg BID PO Last administered on 03/07/17 08:49; Admin Dose 50 MG; Start 03/05/17 at 21:00 Metoprolol Tartrate (Lopressor) 50 mg BID PO Last administered on 03/07/17 08: 49; Admin Dose 50 MG; Start 03/05/17 at 21:00 Pantoprazole (Protonix Tab) 40 mg DAILY@06 PO Last administered on 03/07/17 06 :05; Admin Dose 40 MG; Start 03/06/17 at 06:00 Miscellaneous Information 1 ea NOTE XX ; Start 03/05/17 at 19:30 Glucose (Glutose) 15 gm Q15M PRN PO DECREASED GLUCOSE; Start 03/05/17 at 19:30 Glucose (Glutose) 22.5 gm Q15M PRN PO DECREASED GLUCOSE; Start 03/05/17 at 19: 30 Dextrose (D50w Syringe) 25 ml Q15M PRN IV DECREASED GLUCOSE; Start 03/05/17 at 19:30 Dextrose (D50w Syringe) 50 ml Q15M PRN IV DECREASED GLUCOSE; Start 03/05/17 at 19:30 Glucagon (Glucagen) 1 mg Q15M PRN IM DECREASED GLUCOSE; Start 03/05/17 at 19:30 Glucose (Glutose) 15 gm Q15M PRN BUCCAL DECREASED GLUCOSE; Start 03/05/17 at 19 :30 Diagnostic Test (Pha) (Accu-Chek) 1 ea 02 XX ; Start 03/06/17 at 02:00 Dipyridamole/ Aspirin (Aggrenox) 1 cap BID PO Last administered on 03/07/17 08 :49; Admin Dose 1 CAP; Start 03/06/17 at 21:00 Atorvastatin Calcium (Lipitor) 40 mg HS PO Last administered on 03/06/17 21:42 ; Admin Dose 40 MG; Start 03/06/17 at 21:00 Enoxaparin Sodium (Lovenox) 40 mg DAILY SC Last administered on 03/07/17 08:50 ; Admin Dose 40 MG; Start 03/06/17 at 13:30 Levetiracetam (Keppra) 500 mg BID PO Last administered on 03/07/17 08:49; Admin Dose 500 MG; Start 03/06/17 at 21:00 ILAN CASTELAN MD Mar 07, 2017 12:59
[2017-03-07] MEDS: LORATADINE 10 MG TAB PO SCH (14:30)
[2017-03-07] MEDS: LATANOPROST 0.005% 2.5 ML OPH BOTH EYES SCH (21:04)
[2017-03-07] MEDS: ATORVASTATIN 40 MG TAB PO SCH (21:06)
[2017-03-08] VITALS (10 sets, daily range): BP systolic 110–148; BP diastolic 56–68; PULSE 68–79; RESP 16–19
[2017-03-08] MEDS: ACCU-CHEK XX SCH (02:00)
[2017-03-08] MEDS: PANTOPRAZOLE (EC) 40 MG TAB PO SCH (06:41)
[2017-03-08] MEDS: INSULIN ASPART [NOVOLOG] 3 ML PEN SC SCH ×3 (07:43→17:49)
--- NOTE | 2017-03-08 09:01 | PDOCDIS ---
Discharge Instructions CONDITION Patient Condition: Good HOME CARE INSTRUCTIONS: Diet Instructions: Reduced CalorieSpecial Diet: LOW FAT LOW CHOLESTEROL ACTIVITY: Activity Restrictions: Slowly Increase Activity Rest between Activity Avoid heavy lifting Do not Drive Do not operate Power Tool Weight Bearing Bathing Restrictions: Shower FOLLOW UP/APPOINTMENTS Follow-up Plan Dr Cameron and ILAN Moore MD Mar 08, 2017 09:01
--- NOTE | 2017-03-08 10:22 | HKNOTE ---
DATE OF SERVICE: 03/07/2017 Thank you for asking me to see the patient with you. The patient is having stroke with seizure activity in which you started her on Keppra 500 mg twice a day. The patient feels better today, no more seizure activity. EEG done using 10-20 International System, showed sharp wave slowing consistent with underlying postictal status. PHYSICAL EXAMINATION: On examination today the patient is accompanied by her brother in the room. She is alert, awake, oriented to time, place and person. Normal speech and normal language. CRANIAL NERVES: Cranial nerve II-XII intact. HEART: Regular rate and rhythm. LUNGS: Equal breath sounds. ABDOMEN: Soft. No tenderness. 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 Cranial nerves II, IV and : Extraocular muscles intact. Cranial nerve V: Equal sensation to face. Cranial nerve VII: Symmetrical face. Cranial nerve VIII: Decreased hearing bilaterally. Cranial nerves IX and X: Elevates palate. Cranial nerve XI: Elevates shoulder 5/5. Cranial nerve XII: With straight tongue. Motor exam: Decreased right hand box toe buffer 4+/5. Sensation decreased for glove and sock area for light touch and temperature. Coordination: [id number] test intact. ASSESSMENT: 1. The patient is a 72 year old with underlying seizure activity. Keep the patient on Keppra 500 mg twice a day. EEG was abnormal. Followup the patient in outpatient clinic for followup EEG. 2. Underlying stroke in which the patient is on Aggrenox 1 tablet twice a day. 3. Dyslipidemia. Keep the patient on Lipitor 40 mg once a day. 4. Diabetes mellitus. The patient is on Glucophage 500 mg twice a day. 5. Advised the patient to control her blood sugar as well as the diabetes to avoid extension of stroke as well as more seizure activity. 6. We talked to the patient about seizure precaution, her and her brother. The patient is complaining of about a breathing problem with episode of hyperventilation. Will 7. followup the patient in the outpatient clinic. Again, thank you Dr. Cameron, for asking me to see the patient with you. Dictated By: Lobito Centeno MD /vladimir/karyn /Document#: [id number]
--- NOTE | 2017-03-08 10:38 | CONS ---
DATE OF SERVICE: 03/06/2017 HISTORY OF PRESENT ILLNESS: The patient is a 72-year-old lady with a past medical history of stroke, left-sided weakness. The patient had treatment of the acute rehab at [facility]. The patient the last three months was noted by her brother that she had multiple events where she had black-out spells, moving upper and lower extremities. He said it happed three months ago, two months ago, 18 days ago and prior to admission, which her eyes rolled back on her head and had the tongue bitten. The patient was admitted to Dr. Andrade for followup and evaluation. We got a call about her. PHYSICAL EXAMINATION: GENERAL: On exam today the patient is awake, alert and oriented, following simple commands. HEART: Regular rate and rhythm. LUNGS: Equal breath sounds. ABDOMEN: Soft, nondistended, nontender. HELPER COORDINATOR: Cranial nerve II: Pupils equal on both sides, reactive to light. Cranial nerves II, IV and : Extraocular muscles intact. Cranial nerve V: Equal sensation to face. Cranial nerve VII: Symmetrical face. Cranial nerve VIII: Decreased hearing bilaterally. Cranial nerves IX and X: Elevates palate. Cranial nerve XI: Elevates shoulder 5/5. Cranial nerve XII: With straight tongue. Motor exam: Left side is 4+/5. Sensation decreased on the left side for light touch and temperature. Coordination: [id number]-[id number] test intact. ASSESSMENT: 1. The patient is a 72-year-old with underlying seizure activity. Followup the patient with electroencephalogram. I will add Keppra 500 mg twice a day. Followup the patient with seizure precautions. 2. Underlying lacunar infarction. Continue the patient's Aggrenox twice a day. 3. Dyslipidemia. Give the patient Lipitor 40 mg once a day. 4. History of diabetes. Followup the patient with sliding scale insulin and Accu-Chek. The patient will resume metformin 500 mg once a night. 5. History of hypertension. Keep the blood pressures less than 140/90 to avoid any extension of her stroke. The patient on Norvasc 5 mg, Cozaar 50 twice a day, Lopressor 50 twice a day. 6. MRI shows right superior frontal lacunar infarction which could precipitate seizure. 7. Underlying anxiety. Will use the patient's Xanax as needed. Thank you, Dr. Cameron, for asking me to see the patient with you. Dictated By: Lobito Centeno MD /vladimir/karyn /Document#: [id number]
[2017-03-08] MEDS: LORATADINE 10 MG TAB PO SCH (10:52)
[2017-03-08] MEDS: AMLODIPINE 5 MG TAB PO SCH (10:52)
[2017-03-08] MEDS: LEVETIRACETAM 500 MG TAB PO SCH (10:52)
[2017-03-08] MEDS: DIPYRIDAMOLE/ASPIRIN (SR) CAP PO SCH (10:52)
[2017-03-08] MEDS: LOSARTAN 50 MG TAB PO SCH (10:53)
[2017-03-08] MEDS: METOPROLOL 50 MG TAB PO SCH (10:53)
[2017-03-08] MEDS: ENOXAPARIN 40 MG/0.4 ML SYG SC SCH (10:54)
--- NOTE | 2017-03-08 10:56 | CONS ---
DATE OF SERVICE: 03/08/2017 INDICATIONS: The patient is a 72 year old with underlying history of stroke, seizure activity. TECHNICAL: EEG was done using 10/20 International electrode system with photic stimulation. Bilateral occipital hemispheric view shows theta waves 6-7 Hz, medium size, low amplitude, symmetric bilaterally. Some sharp wave recorded, the left temporal area. Photo stimulation done did not elicit drive. Some electromyogram artifact recorded. IMPRESSION: This is an abnormal electroencephalogram, shows sharp wave on top of consistent with the history of postictal status. Adjustment of medications recommended. Followup EEG may be needed. Dictated By: Lobito Centeno MD /vladimir/karyn /Document#: [id number]
--- NOTE | 2017-03-08 11:00 | DS ---
DATE OF ADMISSION: 03/07/2017 DATE OF DISCHARGE: 03/08/2017 HOSPITAL COURSE: The patient is a 72-year-old female was admitted through the emergency room after she presented with some difficulty with her speech and some locking of her jaw and tingling in the left hand. The patient with was admitted with a possible stroke. The CAT scan did not show any acute changes, it showed an old right-sided cerebral stroke. The patient did undergo an MRI scan of the brain, which did show a new small acute infarction in the right superior frontal gyrus. No associated hemorrhage. The patient was seen in consultation by Dr. Lobito Centeno, neurologist who knows the patient. He also felt that the patient was having seizures. He placed the patient on Keppra 500 mg twice a day. The patient will be sent home on the following medications. Loratadine 10 mg a day. Aggrenox 1 capsule twice a day. Atorvastatin 40 mg a day. Keppra 500 mg twice a day. Metformin 500 mg twice a day. Amlodipine 5 mg a day. Pantoprazole 40 mg a day. Xalatan eye drops at HS in each eye 1 drop. Losartan 50 mg a day. Metoprolol 50 mg twice a day. Tylenol as needed for pain. The patient was in good condition at the time of discharge. FOLLOWUP: The patient will see me in my office in 1-2 weeks. The patient will also see Dr. Caruso's in his office in 1-2 weeks. DISCHARGE DIAGNOSES: 1. 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 2. Seizure disorder. 3. Hypertension. 4. Type 2 diabetes mellitus. 5. Hyperlipidemia. Dictated By: Wiley Cameron MD /vladimir/chari /Document#: [id number]
[2017-03-08] MEDS: metFORMIN 500 MG TAB PO SCH ×2 (11:13→18:05)
== END 2017-03-08 18:31 | disposition home or self-care (01) | DRG 66 ==
LOC: E/R 13:38 → MS4 17:00 → OBSVTOIN 03-07 13:01
PROVIDERS: ADMIT Internal Medicine; ATTEND Internal Medicine
DX: I63.9 Cerebral infarction, unspecified (principal); G40.909 Epilepsy, unspecified, not intractable, without status epilepticus; E11.9 Type 2 diabetes mellitus without complications; I10 Essential (primary) hypertension; E78.5 Hyperlipidemia, unspecified; K21.9 Gastro-esophageal reflux disease without esophagitis
CPT/HCPCS: 36415; 70450; 70551; 71010; 80048; 80053; 80061; 81001; 82962; 83036; 84484; 85025; 85610; 85730; 92610; 93005; 93880; 95819; 97162; 97167; G0378; J1650; J1815; J2060; J2405

== ENCOUNTER 2017-03-28 21:07 | Inpatient (IN) | payer MEDICARE, OTHER ==
[~2017-03-28] VITALS: Ht 167.6 cm; Wt 68.3 kg
[~2017-03-28 21:07] MED LIST changes: -PRAV40TA76 PO
--- NOTE | 2017-03-28 21:28 | ERA ---
ER Documentation Chief Complaint Date/Time DATE: 03/28/17 TIME: 21:25 Chief Complaint BRUNO RA90 from home,confused per spouse report since 1999 HPI Patient is a 72-year-old female with history of diabetes, hypertension and previous stroke who presents to the ER with 40 minutes of confusion and difficulty speaking. Her states that he had seen her 10 minutes prior to onset and she was speaking normally. He denies any fever, vomiting, facial droop, focal weakness. Patient is unable to provide history due to aphasia on exam. ROS All systems reviewed and are negative except as per history of present illness. Medications Home Meds Reported Medications Levetiracetam* (Levetiracetam*) 500 Mg/5 Ml Solution, 500 MG PO BID, ML 03/28/17 Lorazepam* (Lorazepam*) 0.5 Mg Tablet, 0.5 MG PO Q8 Y for ANXIETY, TAB 03/28/17 Aspirin-Dipyridamole* (Aggrenox*) 25-200 Mg Cpmp.12hr, 1 CAP PO BID, CAP 03/28/17 Omeprazole* (Omeprazole*) 20 Mg Capsule.dr, 40 MG PO DAILY, #30 CAP 03/05/17 Latanoprost (Latanoprost) 2.5 Ml Drops, 1 DROP BOTH EYES QHS, #1 BOTTLE INSTILL 1 DROP DAILY INTO BOTH EYES IN THE EVENING 02/10/17 Metformin* (Glucophage*) 500 Mg Tab, 500 MG PO WITH LUNCH DINNER, #60 TAB 04/03/16 Losartan Potassium* (Losartan Potassium*) 50 Mg Tablet, 50 MG PO BID, TAB 03/13/15 Metoprolol Tartrate* (Lopressor*) 50 Mg Tab, 50 MG PO BID, TAB 03/13/15 Amlodipine Besylate* (Norvasc*) 5 Mg Tablet, 5 MG PO DAILY, TAB 03/13/15 Allergies Allergies: Coded Allergies: Penicillins (Unverified Allergy, Mild, 03/17/17) cortisone (Unverified Allergy, Mild, 03/17/17) prednisone (Unverified Allergy, Mild, 03/17/17) Sulfa (Sulfonamide Antibiotics) (Unverified Allergy, Unknown, 03/17/17) PMhx/Soc Past medical history: Diabetes mellitus, hypertension, CVA Past surgical history: Denies Social history: Denies tobacco or alcohol History of Surgery: Yes (2 c sec) Anesthesia Reaction: No Hx Neurological Disorder: Yes (cva, l sided weakness, sz) Hx Respiratory Disorders: No Hx Cardiac Disorders: Yes (cad, stent, htn) Hx Psychiatric Problems: Yes (anxiety) Hx Miscellaneous Medical Probl: Yes (DM, skin ca, CVAs) Hx Alcohol Use: No Hx Substance Use: No Hx Tobacco Use: Yes FmHx Family History: No coronary disease, No diabetes Physical Exam Vitals Vital Signs Date Time Temp Pulse Resp B/P Pulse Ox O2 Delivery O2 Flow Rate FiO2 03/28/17 23:50 103 19 139/69 98 03/28/17 23:35 102 18 130/80 98 03/28/17 23:20 99 16 143/66 99 03/28/17 23:05 102 23 147/97 100 03/28/17 22:50 98 23 158/87 100 03/28/17 22:35 101 24 161/88 100 03/28/17 22:20 100 25 176/103 100 03/28/17 22:10 101 17 187/98 100 03/28/17 21:31 Nasal Cannula 2 03/28/17 21:17 98.8 101 18 172/84 92 Physical Exam Const: Alert, no acute distress Head: Atraumatic Eyes: Normal Conjunctiva, No pallor, no icterus ENT: Normal External Ears, Nose and Mouth.Mucous membranes moist Neck: Full range of motion..~ No meningismus. Resp: Clear to auscultation bilaterally, No wheezes, no rales Cardio: Regular rate and rhythm, no murmurs Abd: Soft, non tender, non distended. Skin: No petechiae or rashes Back: No midline or flank tenderness Ext: No cyanosis, or edema Neur: Awake and alertAphasic, patient not answering questions appropriately, minimal speech with inappropriate response, nodding inappropriately. 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 Patient not following commands appropriately. Negative Babinski's bilaterally. Psych: Normal Mood and Affect Result Diagram: 03/28/17211903/28/172119 Results 24 hrs Laboratory Tests Test 03/28/17 21:20 White Blood Count 10.410^3/ul Red Blood Count 4.5310^6/ul Hemoglobin 14.9g/dl Hematocrit 43.6% Mean Corpuscular Volume 96.2fl Mean Corpuscular Hemoglobin 32.9pg Mean Corpuscular Hemoglobin Concent 34.2g/dl Red Cell Distribution Width 12.0% Platelet Count 98030^3/UL Mean Platelet Volume 9.1fl Neutrophils % 64.8% Lymphocytes % 26.7% Monocytes % 6.4% Eosinophils % 1.4% Basophils % 0.4% Nucleated Red Blood Cells % 0.0/100WBC Neutrophils # (Manual) 6.710^3/ul Lymphocytes # 2.810^3/ul Monocytes # 0.710^3/ul Eosinophils # 0.110^3/ul Basophils # 0.010^3/ul Nucleated Red Blood Cells # 0.010^3/ul Prothrombin Time 12.2Sec Prothrombin Time Ratio 1.0 INR International Normalized Ratio 0.91 Activated Partial Thromboplast Time 30.4Sec Sodium Level 139mmol/L Potassium Level 4.0mmol/L Chloride Level 101mmol/L Carbon Dioxide Level 29mmol/L Anion Gap 13 Blood Urea Nitrogen 18mg/dl Creatinine 0.66mg/dl Glucose Level 161mg/dl Hemoglobin A1c 6.2% Calcium Level 10.2mg/dl Total Bilirubin 0.2mg/dl Direct Bilirubin 0.00mg/dl Indirect Bilirubin 0.2mg/dl Aspartate Amino Transf (AST/SGOT) 15IU/L Alanine Aminotransferase (ALT/SGPT) 34IU/L Alkaline Phosphatase 189IU/L Troponin I < 0.012ng/ml Total Protein 7.9g/dl Albumin 4.3g/dl Globulin 3.60g/dl Albumin/Globulin Ratio 1.19 Current Medications Medications (Trade) Dose Ordered Sig/Doris Route PRN Reason Start Time Stop Time Status Last Admin Dose Admin Alteplase, Recombinant (Activase) 5.9 mg BOLUS OVER 1 MIN ONCE IV* 03/28/17 22:00 03/28/17 22:01 DC 03/28/17 22:03 Alteplase, Recombinant (Activase) 53.4 mg ISCHEMIC STROKE ONCE IV* 03/28/17 22:00 03/28/17 22:01 DC 03/28/17 22:03 Labetalol HCl (Labetalol) 10 mg ONCE ONCE IV 03/28/17 22:30 03/28/17 22:31 DC 03/28/17 22:40 Labetalol HCl (Labetalol) 20 mg STK-MED ONCE .ROUTE 03/28/17 22:17 03/28/17 22:18 DC IV Flush 10 ml 10 ml STK-MED ONCE .ROUTE 03/28/17 22:48 03/28/17 22:49 DC 03/28/17 23:24 Sodium Chloride 100 ml @ ud STK-MED ONCE .ROUTE 03/28/17 22:48 03/28/17 22:49 DC 03/28/17 23:25 Iohexol (Omnipaque) 100 ml @ ud STK-MED ONCE .ROUTE 03/28/17 22:48 03/28/17 22:49 DC 03/28/17 23:25 Iohexol (Omnipaque 350mg/ ml) 50 ml STK-MED ONCE .ROUTE 03/28/17 22:48 03/28/17 22:49 DC 03/28/17 23:25 Lorazepam (Ativan) 1 mg ONCE ONCE IV 03/28/17 23:30 03/28/17 23:31 DC 03/28/17 23:04 Lorazepam (Ativan) 2 mg STK-MED ONCE .ROUTE 03/28/17 23:03 03/28/17 23:04 DC Labetalol HCl (Labetalol) 10 mg Q10M PRN IV ELEVATED BLOOD PRESSURE 03/28/17 23:30 Acetaminophen (Tylenol Tab) 650 mg Q4H PRN PO Temp greater than 99.6F 03/28/17 23:30 Docusate Sodium (Colace) 100 mg BID PO 03/29/17 09:00 Latanoprost (Xalatan) 1 drop QHS BOTH EYES 03/29/17 21:00 Levetiracetam (Keppra Liquid) 500 mg BID PO 03/29/17 09:00 Miscellaneous Information (* Miscellaneous Pharmacy Order) Discontinue current oral sulfonylur... ONCE ONCE XX 03/28/17 23:30 03/28/17 23:31 DC Diagnostic Test (Pha) (Accu-Chek) 1 ea 02 XX 03/29/17 02:00 Miscellaneous Information (* Miscellaneous Pharmacy Order) HYPOGLYCEMIA PROTOCOL w... ONCE ONCE XX 9/6/17 23:30 03/28/17 23:31 DC Insulin Aspart (Novolog Insulin Pen) NOVOLOG *MILD* ALGORI... Q4 SC 03/29/17 01:00 Miscellaneous Information Discontinue all previ... ONCE ONCE XX 03/28/17 23:30 03/28/17 23:31 DC Dextrose (D5W) 1,000 ml @ 75 mls/hr [id number] IV 03/28/17 23:30 Lorazepam (Ativan) 0.5 mg Q8H PRN IV ANXIETY 03/28/17 23:30 Pantoprazole (Protonix Iv) 40 mg DAILY@06 IV 03/29/17 06:00 Miscellaneous Information 1 ea NOTE XX 03/28/17 23:45 Glucose (Glutose) 15 gm Q15M PRN PO DECREASED GLUCOSE 03/28/17 23:45 Glucose (Glutose) 22.5 gm Q15M PRN PO DECREASED GLUCOSE 03/28/17 23:45 Dextrose (D50w Syringe) 25 ml Q15M PRN IV DECREASED GLUCOSE 03/28/17 23:45 Dextrose (D50w Syringe) 50 ml Q15M PRN IV DECREASED GLUCOSE 03/28/17 23:45 Glucagon (Glucagen) 1 mg Q15M PRN IM DECREASED GLUCOSE 03/28/17 23:45 Glucose (Glutose) 15 gm Q15M PRN BUCCAL DECREASED GLUCOSE 03/28/17 23:45 Procedures/MDM EKG read by me: Time 2251, rate 97 Rhythm: Normal sinus [place]: Left axis deviation Intervals: Normal ST-T waves: T-wave flattening in lateral leads Ectopy: No Q-waves: No Impression: No evidence of ischemia or arrhythmia MDM: Patient is a 72-year-old female with history of multiple prior strokes as well as diabetes and hypertension who presents to the ER with acute alteration of mental status and difficulty speaking. She arrived in the ER approximately 50 minutes since her last known well time. On initial assessment, the patient had evidence of aphasia as well as some suggestion of neglect syndrome. A code stroke was called. Head CT did not show hemorrhage or acute change. The patient was assessed by the tele-neurologist, Dr. Marx, who believed that the patient was a good TPA candidate. I agreed that the patient met TPA criteria and did not have contraindications. Dr. Marx and I both discussed the risks and benefits of TPA extensively with the patient and her . The patient was not able to communicate appropriately, so the was determined to be the decision maker. He consented to TPA with full understanding of risks and benefits and the patient did not show any signs of objecting. TPA was administered within 3 hours of symptom onset. A CTA of the head and neck was performed and showed no acute occlusion. The patient was given labetalol for blood pressure control and had an appropriate response. There is no evidence of coronary ischemia, infection, or other acute medical condition. The patient does have a history of seizures, but there is no evidence of seizure disorder, and I do not believe that her presentation is likely to be due to seizure. She will be admitted to the ICU by Dr. De Leon for further neurologic workup and care. Critical Care Time: 45 minutes Treatments/Evaluations: Close monitoring and treatment of unstable vital signs, cardiorespiratory, and neurologic status, while maintaining tight balance of fluid, respiratory, and cardiac interventions. This time includes discussing the case with the patient and the patient's family. This time does not include all procedures stated elsewhere in this record. This time also includes reviewing old records, labs and radiological studies. This time includes examining and re-examining the patient. Additionally, this time also includes arranging care with admitting and consulting physicians. Departure Diagnosis: Primary Impression: Acute ischemic stroke Additional Impression: Hypertension Qualified Code: I10 - Essential hypertension Condition: MODESTO Ambriz MD Mar 28, 2017 21:28
[2017-03-28 21:30] LABS: BASOPHILS % 0.4 % (0.0-2.0); EOSINOPHILS # 0.1 10^3/ul (0.0-0.5); EOSINOPHILS % 1.4 % (0.0-7.0); HEMATOCRIT 43.6 % (37.0-47.0); HEMOGLOBIN 14.9 g/dl (12.0-16.0); LYMPHOCYTES # 2.8 10^3/ul (0.8-2.9); LYMPHOCYTES % 26.7 % (15.0-51.0); MEAN CORPUSCULAR HEMOGLOBIN 32.9 pg (29.0-33.0); MEAN CORPUSCULAR HGB CONC 34.2 g/dl (32.0-37.0); MEAN CORPUSCULAR VOLUME 96.2 fl (82.0-101.0); MEAN PLATELET VOLUME 9.1 fl (7.4-10.4); MONOCYTE # 0.7 10^3/ul (0.3-0.9); MONOCYTES % 6.4 % (0.0-11.0); NEUTROPHILS % 64.8 % (39.0-77.0); PLATELET COUNT 387 10^3/UL (140-415); RED BLOOD COUNT 4.53 10^6/ul (4.20-5.40); WHITE BLOOD COUNT 10.4 10^3/ul (4.8-10.8)
--- NOTE | 2017-03-28 21:39 | RADRPT ---
PROCEDURE: CT HEAD WITHOUT CONTRAST: CLINICAL INDICATION: 72 years of age, female, stroke . COMPARISON: CT brain March 17, 2017 TECHNIQUE: CT of the head was performed without IV contrast. Coronal and sagittal reformatted images were obtained from the axial source images. Images were reviewed on a high-resolution PACS workstat ion. Dose information: The estimated radiation dose (CTDIvol mGy) for each series in this exam is 43. Th e estimated cumulative dose (DLP mGy-cm) is 886. One or more of the following dose reduction techniques were used: - Automated exposure control. - Adjustment of the mA and/or kV according to patient size. - Use of iterative reconstruction technique. FINDINGS: Parenchyma: Negative for acute intracranial hemorrhage, significant mass effect or midline shift. There is an old right frontal SOPHIA territory infarct with encephalomalacia and ex vacuo dilatation of the frontal horn of the right lateral ventricle that is unchanged from prior exam. There are nonspe cific low density changes in the supratentorial deep white matter as before. East-white matter diffe rentiation is otherwise maintained. Moderate diffuse cerebral tissue loss. Severe intracranial athe rosclerosis in the anterior posterior circulations is unchanged from prior exam.. Ventricles and extra-axial spaces: Prominence of the ventricles proportionate to the sulci in keepin g with cerebral tissue loss. No abnormal extra-axial fluid collections are identified. Visualized paranasal sinuses: Clear. Mastoid air cells: Clear. Bones: No focal abnormality. Additional comment: None. IMPRESSION: 1. Old right SOPHIA territory infarct is unchanged from prior exam. Negative for evidence of new large territory vascular infarct. Negative for acute intracranial hemorrhage or mass effect. 2. Nonspecific patchy low density changes in the supratentorial deep white matter are nonspecific b ut likely due to chronic small vessel ischemia. If there is concern for recent ischemia, consider MR I brain for further evaluation. 3. Severe intracranial atherosclerosis. Findings were discussed with Dr Sandor Whitehead by Dr. Nancie Kaur on March 28, 2017 at 09:35 p. m.. RPTAT: HCTS Physician Susana Date Time Electronically viewed and signed by Viktoria Kaur Physician on 03/28/2017 21:39 CS/
[2017-03-28 21:52] LABS: ALANINE AMINOTRANSFERASE 34 IU/L (13-69); ALBUMIN 4.3 g/dl (3.3-4.9); ALBUMIN/GLOBULIN RATIO 1.19; ALKALINE PHOSPHATASE 189 IU/L (42-121); ANION GAP 13 (8-16); ASPARTATE AMINO TRANSFERASE 15 IU/L (15-46); BILIRUBIN,INDIRECT 0.2 mg/dl (0-1.1); BILIRUBIN,TOTAL 0.2 mg/dl (0.2-1.3); BLOOD UREA NITROGEN 18 mg/dl (7-20); CALCIUM 10.2 mg/dl (8.4-10.2); CARBON DIOXIDE 29 mmol/L (21-31); CHLORIDE 101 mmol/L (97-110); CREATININE 0.66 mg/dl (0.44-1.00); GLUCOSE 161 mg/dl (70-220); SODIUM 139 mmol/L (135-144); TOTAL PROTEIN 7.9 g/dl (6.1-8.1)
[2017-03-28 21:55] LABS: INR 0.91; PARTIAL THROMBOPLASTIN TIME 30.4 Sec (25.0-35.0); PROTIME 12.2 Sec (12.2-14.2)
[2017-03-28] MEDS ORDERED: ALTEPLASE (tPA) 1 MG/ML BOLUS SYG IV* ONE (22:00)
[2017-03-28] MEDS ORDERED: ALTEPLASE 100 MG INJ IV* ONE (22:00)
[2017-03-28 22:04] LABS: TROPONIN-I < 0.012 ng/ml (0.00-0.12)
[2017-03-28] MEDS ORDERED: LABETALOL HCL 20MG INJ ONE (22:17)
--- NOTE | 2017-03-28 22:29 | RADRPT ---
PROCEDURE: Portable chest x-ray. CLINICAL INDICATION: 72 years of age, female. Stroke. TECHNIQUE: Portable AP view of the chest. COMPARISON: None available. FINDINGS: Mild atherosclerotic calcification and tortuosity of thoracic aorta. Normal heart size. Lungs are clear. Negative for pleural effusion or pneumothorax. No acute bony abnormality. IMPRESSION: Negative for evidence of acute chest process. RPTAT: HCTS Physician Susana Date Time Electronically viewed and signed by Viktoria Kaur Physician on 03/28/2017 22:29 CS/
[2017-03-28] MEDS ORDERED: LABETALOL HCL 20MG INJ IV ONE (22:30)
[2017-03-28] MEDS ORDERED: SOD CHLORIDE 0.9% 100 ML ONE (22:48)
[2017-03-28] MEDS ORDERED: IOHEXOL 350MG/ML 50 ML BTL ONE (22:48)
[2017-03-28] MEDS ORDERED: IOHEXOL 100 ML ONE (22:48)
[2017-03-28] MEDS ORDERED: ASPI1CPM8 PO (22:51)
[2017-03-28] MEDS ORDERED: LEVE500S8 PO (22:53)
[2017-03-28] MEDS ORDERED: LORA0.5T PO (22:53)
[2017-03-28] MEDS ORDERED: LORAZEPAM 2 MG INJ ONE (23:03)
[2017-03-28] MEDS ORDERED: LORAZEPAM 2 MG INJ IV ONE (23:30)
[2017-03-28] MEDS ORDERED: ACETAMINOPHEN 325 MG TAB PO PRN (23:30)
[2017-03-28] MEDS ORDERED: LABETALOL HCL 20MG INJ IV PRN (23:30)
--- NOTE | 2017-03-28 23:44 | RADRPT ---
PROCEDURE: CT Angiogram Head and Neck with IV Contrast CLINICAL INDICATION: Neurological deficit.. TECHNIQUE: Serial axial computed tomographic images of the head and neck were obtained at the [facility] nistration of 90 cc Isovue 370 IV contrast material. 3D, sagittal and coronal reconstruction images were created. 3D/MIP post-processing angiographic reconstruction images were also produced. Exam C TDlvol = 40 mGy and DLP = 27 mGy-cm. One of the following 3 dose reduction techniques were used: Au tomated exposure control; adjustment of the mA and/or kV according to patient size; or use of iterat jacinda reconstruction technique. COMPARISON: CT brain 03/28/2017, MRA brain 05/08/2016, carotid ultrasound 03/05/2017.. FINDINGS: CT Angio Neck: There is mild atherosclerotic plaque of the aortic arch.. The common carotid arterie s are normal in appearance. There are bilateral carotid bulb partially calcified plaques with less t gomez 50% diameter stenosis. There is no evidence for carotid dissection. The vertebral arteries are unremarkable. There are degenerative changes of the cervical spine with mild reversal of the normal cervical lordosis. CT Angio Head: There is extensive bilateral cavernous internal carotid artery atherosclerotic vascu lar calcifications without a hemodynamically significant stenosis. The proximal right anterior cereb ral arteries patent although there is unchanged occlusion distal to the proximal A2 segment. The ant erior circulation including the intracranial internal carotid arteries, middle and anterior cerebral arteries are otherwise normal in appearance. There is atherosclerotic calcifications of the distal vertebral arteries bilaterally with moderate stenosis. There is minimal plaque in the mid basilar a rtery. The bilateral distal vertebral arteries, basilar artery and posterior cerebral arteries are o therwise normal in appearance. No filling defect is identified. No aneurysm or vascular malform ation is identified. No abnormal brain parenchymal enhancement is identified. IMPRESSION: 1. No evidence for acute thrombus or occlusion. 2. 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 3. Atherosclerotic calcifications of bilateral carotid bulbs without a hemodynamically significant stenosis. 4. Multifocal atherosclerotic calcifications in the distal vertebral arteries, mid basilar artery a nd bilateral cavernous internal carotid arteries without a definite hemodynamically significant sten osis. 5. No aneurysm - malformation Findings reported to Dr. Whitehead on 03/28/2017 11:41:52 PM. NASCET CAROTID STENOSIS CRITERIA (distal normal appearing ICA as denominator for measurement): 0%-no ne, 1-49%-mild, 50-70%-moderate, 70-89%-severe, 90-99%-critical. RPTAT: HMVK .Shaheen Nuñez MD, MD Date Time Electronically viewed and signed by .Shaheen Nuñez MD, MD on 03/28/2017 23:43 .K/
[2017-03-28] MEDS ORDERED: DEXTROSE 50% 50 ML SYRINGE IV PRN ×2 (23:45)
[2017-03-28] MEDS ORDERED: GLUCOSE GEL 15 GRAM TUBE BUCCAL PRN (23:45)
[2017-03-28] MEDS ORDERED: GLUCAGON 1 MG INJ IM PRN (23:45)
[2017-03-28] MEDS ORDERED: GLUCOSE GEL 15 GRAM TUBE PO PRN ×2 (23:45)
[2017-03-29] VITALS (11 sets, daily range): BP systolic 80–166; BP diastolic 50–89; PULSE 71–95; RESP 12–18; Ht 167.6 cm; Wt 68.3 kg
--- NOTE | 2017-03-29 00:17 | RADRPT ---
PROCEDURE: CT Angiogram Head and Neck with IV Contrast CLINICAL INDICATION: Neurological deficit. TECHNIQUE: Serial axial computed tomographic images of the head and neck were obtained at the admini stration of 90 cc Isovue 370 IV contrast material. 3D, sagittal and coronal reconstruction images we re created. 3D/MIP post-processing angiographic reconstruction images were also produced. Exam CTDlv ol = 40 mGy and DLP = 27 mGy-cm. One of the following 3 dose reduction techniques were used: Automat ed exposure control; adjustment of the mA and/or kV according to patient size; or use of iterative r econstruction technique. COMPARISON: CT brain 03/28/2017, MRA brain 05/08/2016, carotid ultrasound 03/05/2017.. FINDINGS: CT Angio Neck: There is mild atherosclerotic plaque of the aortic arch.. The common carotid arteries are normal in appearance. There are bilateral carotid bulb partially calcified plaques with less th an 50% diameter stenosis. There is no evidence for carotid dissection. The vertebral arteries are un remarkable. There are degenerative changes of the cervical spine with mild reversal of the normal ce rvical lordosis. CT Angio Head: There is extensive bilateral cavernous internal carotid artery atherosclerotic vascul ar calcifications without a hemodynamically significant stenosis. The proximal right anterior cerebr al arteries patent although there is unchanged occlusion distal to the proximal A2 segment. The ante rior circulation including the intracranial internal carotid arteries, middle and anterior cerebral arteries are otherwise normal in appearance. There is atherosclerotic calcifications of the distal v ertebral arteries bilaterally with moderate stenosis. There is minimal plaque in the mid basilar art meghan. The bilateral distal vertebral arteries, basilar artery and posterior cerebral arteries are oth erwise normal in appearance. No filling defect is identified. No aneurysm or vascular malformation i s identified. No abnormal brain parenchymal enhancement is identified. IMPRESSION: 1. No evidence for acute thrombus or occlusion. 2. 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 3. Atherosclerotic calcifications of bilateral carotid bulbs without a hemodynamically significant s tenosis. 4. Multifocal atherosclerotic calcifications in the distal vertebral arteries, mid basilar artery an d bilateral cavernous internal carotid arteries without a definite hemodynamically significant steno sis. 5. No aneurysm - malformation Findings reported to Dr. Whitehead on 03/28/2017 11:41:52 PM. NASCET CAROTID STENOSIS CRITERIA (distal normal appearing ICA as denominator for measurement): 0%-no ne, 1-49%-mild, 50-70%-moderate, 70-89%-severe, 90-99%-critical. RPTAT: HMVK .Shaheen Nuñez MD, MD Date Time Electronically viewed and signed by .Shaheen Nuñez MD, on 03/29/2017 00:16 .K/
[2017-03-29] MEDS ORDERED: INSULIN ASPART [NOVOLOG] 3 ML PEN SC SCH (01:00)
[2017-03-29] MEDS ORDERED: ACCU-CHEK XX SCH (02:00)
[2017-03-29 05:52] LABS: BASOPHIL # 0.1 10^3/ul (0.0-0.1); BASOPHILS % 0.4 % (0.0-2.0); EOSINOPHILS # 0.1 10^3/ul (0.0-0.5); HEMATOCRIT 41.4 % (37.0-47.0); HEMOGLOBIN 13.6 g/dl (12.0-16.0); LYMPHOCYTES # 3.3 10^3/ul (0.8-2.9); LYMPHOCYTES % 27.7 % (15.0-51.0); MEAN CORPUSCULAR HEMOGLOBIN 31.9 pg (29.0-33.0); MEAN CORPUSCULAR HGB CONC 32.9 g/dl (32.0-37.0); MEAN PLATELET VOLUME 8.9 fl (7.4-10.4); MONOCYTE # 0.9 10^3/ul (0.3-0.9); MONOCYTES % 7.1 % (0.0-11.0); NEUTROPHILS % 63.5 % (39.0-77.0); PLATELET COUNT 364 10^3/UL (140-415); RED BLOOD COUNT 4.27 10^6/ul (4.20-5.40); RED CELL DISTRIBUTION WIDTH 12.2 % (11.5-14.5); WHITE BLOOD COUNT 11.9 10^3/ul (4.8-10.8)
[2017-03-29 06:12] LABS: ANION GAP 14 (8-16); BLOOD UREA NITROGEN 19 mg/dl (7-20); CALCIUM 9.8 mg/dl (8.4-10.2); CARBON DIOXIDE 25 mmol/L (21-31); CHLORIDE 104 mmol/L (97-110); CHOL/HDL RATIO 3.4 RATIO; CHOLESTEROL 208 mg/dl (100-200); CREATININE 0.59 mg/dl (0.44-1.00); GLUCOSE 143 mg/dl (70-220); HDL CHOLESTEROL 60 mg/dl (33-92); POTASSIUM 3.8 mmol/L (3.5-5.1); SODIUM 139 mmol/L (135-144); TRIGLYCERIDES 64 mg/dl (0-149)
--- NOTE | 2017-03-29 06:24 | RADRPT ---
PROCEDURE: Chest. CLINICAL INDICATION: Chest pain. TECHNIQUE: Single frontal view of the chest was obtained. COMPARISON: 03/28/2017. FINDINGS: The cardiac silhouette is within normal limits. The aortic arch is calcified. There is no focal co nsolidation, vascular congestion or pleural effusion. There is no pneumothorax. IMPRESSION: No evidence for active cardiopulmonary disease. Aortic atherosclerosis. .Venkat Aparicio MD, MD Date Time Electronically viewed and signed by .Venkat Aparicio MD, on 03/29/2017 06:23 .T/
[2017-03-29 06:28] LABS: TROPONIN-I < 0.012 ng/ml (0.00-0.12)
[2017-03-29] MEDS: LORAZEPAM 2 MG INJ IV PRN (08:15)
--- NOTE | 2017-03-29 09:45 | RADRPT ---
PROCEDURE: MRI Brain without and with contrast. CLINICAL INDICATION: CVA, neurological deficit. TECHNIQUE: An MRI of the brain was performed utilizing the following sequences: Sagittal T1-weigh eduin, axial T2-weighted, axial FLAIR, axial T1, coronal GRE axial diffusion-weighted with ADC mapping . Following the uneventful administration of 10 cc Magnevist, postcontrast axial and coronal T1-weig hted images were obtained. Images were viewed on a PACS workstation. COMPARISON: Brain CT and CTA 03/28/2017. FINDINGS: There is old infarct involving right anterior frontal lobe and right cingulate gyrus in right anteri or cerebral artery distribution with associated encephalomalacia and volume loss. No diffusion weighted abnormalities are seen to suggest the presence of acute ischemia or recent inf arct. There is no intracranial hemorrhage, mass effect, or midline shift. No extra-axial fluid col lection is seen. The ventricles and sulci are mildly enlarged indicative of volume loss. There are mild to moderate foci of T2 and FLAIR hyperintensity in the periventricular, deep, and sub cortical white matter, which are nonspecific in etiology but likely reflect chronic small vessel isc hemic changes. Small T2 hyperintense foci are noted in bilateral lentiform nuclei which likely represent dilated pe rivascular spaces versus old lacunar infarcts. The gradient echo images reveal no areas of susceptibility artifact to suggest blood degradation pro ducts or abnormal calcification. No abnormal intraparenchymal, meningeal or ependymal enhancement i s seen. Chronic occlusion distal to the proximal right A2 segment is again noted. The pituitary and sella re veal no abnormality. The suprasellar cistern is clear. The visualized paranasal sinuses are clear. The mastoid air cells are clear. IMPRESSION: 1. No acute intracranial hemorrhage, infarction or mass. No intracranial enhancing abnormality. 2. Old infarct involving right anterior frontal lobe and right cingulate gyrus in right anterior ce rebral artery distribution. Chronic occlusion distal to the proximal right A2 segment. 3. Mild to moderate chronic small vessel ischemic changes. 4. Mild generalized cerebral volume loss. RPTAT: HH .Javier Urbina MD, MD Date Time Electronically viewed and signed by .Javier Urbina MD, MD on 03/29/2017 09:45 .N/
--- NOTE | 2017-03-29 10:15 | RADRPT ---
PROCEDURE: US Carotids. CLINICAL INDICATION: bruit , TIA TECHNIQUE: Multiple sonographic of the carotid bifurcation region and vertebral arteries were obta ined utilizing olivera scale, duplex and color-flow imaging. The images were reviewed on a PACS worksta tion. COMPARISON: US NECK 03/05/2017 FINDINGS: Evaluation of the right carotid bifurcation region reveals no significant calcific atherosclerotic d isease. Evaluation of the left carotid bifurcation region reveals mild calcific atherosclerotic disease. There is antegrade flow within the vertebral arteries bilaterally. RIGHT CAROTID MEASUREMENTS: Common Carotid Sauczq41.8 (cm/sec) Internal Carotid Artery - mwdocozs67.9 (cm/sec) Internal Carotid Artery - mid65.3 (cm/sec) Internal Carotid Artery - eymtyq76.7 (cm/sec) Internal Carotid/Common Carotid1.16 LEFT CAROTID MEASUREMENTS: Common Carotid Ukzjaw65.2 (cm/sec) Internal Carotid Artery - nlczhrde62.7 (cm/sec) Internal Carotid Artery - mid37.6 (cm/sec) Internal Carotid Artery - .9 (cm/sec) Internal Carotid/Common Carotid1.04 RPTAT: AA IMPRESSION: No evidence for hemodynamically significant stenosis in the bilateral internal carotid arteries - va lidated velocity measurements with angiographic measurements, velocity criteria are extrapolated fro m diameter data as defined by the Society of Radiologists in Ultrasound Consensus Conference Radiolo gy 2003; 229;340-346. This study does indirectly reference the measurement of the distal ICA diamet er as the denominator for stenosis measurement. Normal antegrade flow in the vertebral arteries bilaterally. .Yovani Nichols MD, Date Time Electronically viewed and signed by .Yovani Nichols MD, MD on 03/29/2017 10:15 .S/
[2017-03-29] MEDS ORDERED: LORAZEPAM 0.5 MG TAB PO PRN (10:30)
[2017-03-29] MEDS ORDERED: NACL 0.9% 3 ML SYG IV SCH (10:30)
[2017-03-29] MEDS ORDERED: ACETAMINOPHEN 325 MG TAB PO PRN (10:30)
[2017-03-29] MEDS ORDERED: ONDANSETRON 4 MG INJ IV PRN (10:30)
[2017-03-29] MEDS: DEXTROSE 5% 1,000 ML IV SCH ×2 (10:39→15:00)
[2017-03-29] MEDS: PANTOPRAZOLE 40 MG INJ IV SCH (10:40)
[2017-03-29] MEDS: LEVETIRACETAM (100 MG/ML) 5ML CUP PO SCH ×2 (10:54→21:10)
[2017-03-29 13:07] LABS: ADD UMIC YES; UR ASCORBIC ACID NEGATIVE (NEGATIVE); UR BACTERIA FEW /HPF (NONE SEEN); UR BILIRUBIN (Dip) NEGATIVE (NEGATIVE); UR BLOOD (Dip) NEGATIVE (NEGATIVE); UR CLARITY SLIGHTLY CLOUDY (CLEAR); UR COLOR YELLOW (YELLOW); UR GLUCOSE (Dip) NEGATIVE (NEGATIVE); UR KETONES (Dip) NEGATIVE (NEGATIVE); UR LEUKOCYTE ESTERASE (Dip) NEGATIVE Leu/ul (NEGATIVE); UR NITRITE (Dip) POSITIVE (NEGATIVE); UR RBC 3 /HPF (0-5); UR SPECIFIC GRAVITY (Dip) 1.044 (1.003-1.030); UR TOTAL PROTEIN (Dip) NEGATIVE (NEGATIVE); UR UROBILINOGEN (Dip) NEGATIVE (NEGATIVE)
[2017-03-29 13:13] LABS: BARBITURATES Negative (NEGATIVE); BENZODIAZEPINES Negative (NEGATIVE); CANNABINOIDS Negative (NEGATIVE); COCAINE Negative (NEGATIVE); OPIATES Negative (NEGATIVE)
[2017-03-29] MEDS: INSULIN ASPART [NOVOLOG] 3 ML PEN SC SCH ×3 (15:40→21:00)
[2017-03-29] MEDS: DOCUSATE SODIUM 100 MG CAP PO SCH ×2 (15:40→21:11)
--- NOTE | 2017-03-29 19:54 | HP ---
DATE OF ADMISSION: 03/28/2017 REASON FOR ADMISSION: Difficulty speaking and some left-sided weakness. HISTORY OF PRESENT ILLNESS: This 72-year-old female was in her usual state of health until last evening around 9:30 p.m. when her brother went into her room and said that she was staring straight ahead and was unresponsive. He said she also had some left-sided arm weakness. The patient was brought to the [facility] Emergency Room for further evaluation and treatment. In the emergency room the patient was confused. The patient has a history of a prior right-sided stroke. She has had left-sided weakness at times. The patient was last in this hospital, admitted on March 07, 2017 with a transient ischemic attack. During that admission, the patient had some jaw tightness, difficulty speaking and left hand tingling. The patient says that she has had 2 previous strokes. When I saw the patient today in the emergency room, she was lethargic because she had just received Ativan prior to having an MRI of her brain. According to the patient's brother, she has also had some shortness of breath. The patient has not had any fever or chills. The patient was up walking with a walker prior to this episode. PAST MEDICAL HISTORY: Is remarkable for type 2 diabetes mellitus, hypertension, congestive heart failure, gastroesophageal reflux disease, hyperlipidemia, diabetic nephropathy, skin cancer, chronic kidney disease stage 3, diabetic neuropathy, and previous strokes x2. PAST SURGICAL HISTORY: Cholecystectomy in 2006, appendectomy, right ear surgery, skin cancer removed from face and left ear. FAMILY HISTORY: Father is of diabetes. Mother of unknown causes, but was in her late 90's. She has siblings with cancer of the colon, TB and diabetes. SOCIAL HISTORY: The patient does not smoke. She is a former smoker. She has not smoked in more than 10 years. She does not drink alcohol. ALLERGIES: SHE IS ALLERGIC TO CODEINE, ERYTHROMYCIN AND PENICILLIN. MEDICATIONS: Include the followin. Amlodipine 5 mg a day. 2. Aggrenox 1 twice a day. 3. Losartan 50 mg twice a day. 4. Metoprolol 50 mg twice a day. 5. Keppra 500 mg twice a day. 6. Lorazepam 0.5 mg p.r.n. anxiety. 7. Latanoprost drops 1 in each eye at h.s. daily. 8. Omeprazole 20 mg a day. 9. Metformin 500 mg with lunch and dinner. PHYSICAL EXAMINATION: GENERAL APPEARANCE: At this time reveals a thin, frail female, in no apparent distress. She is lethargic, but does arouse to verbal stimuli and follows commands. VITAL SIGNS: Temperature 97.8, pulse of 90, respirations 18, blood pressure 130/71, O2 sat 98 percent on room air. HEENT: Head normocephalic. Eyes: Extraocular muscles intact. Nose and mouth are normal. NECK: Supple. No neck vein distention. LUNGS: Clear to auscultation. HEART: Regular rhythm. No murmurs, gallops, or rubs. ABDOMEN: Soft, nontender. EXTREMITIES: No peripheral edema. NEUROLOGIC: She is weak diffusely, but there are no obvious focal neurologic deficits. IMPRESSION: 1. Altered level of consciousness and difficulty speaking. The patient on admission was thought to have an acute cerebrovascular accident. She was seen by the video Neurology doctor. Discussions with the emergency room physician were undertaken, and they decided to give the patient tPA. The patient on imaging done in the emergency room, the CAT scan showed an old right anterior communicating artery territory infarct and was unchanged from prior examination. There was no evidence for new large territory vascular infarct. There was no evidence of acute intracranial hemorrhage or mass effect. There was evidence of severe intracranial atherosclerosis and patchy low-density changes, likely due to chronic small-vessel ischemia. The patient did have a CTA of the head, which showed no evidence for acute thrombus or occlusion. There was an MRI of the brain done, which also showed no intracranial hemorrhage, infarct or mass. In retrospect, it seems that the patient did not have an acute cerebrovascular event. I suspect that the patient had either a transient ischemic attack, post seizure episode or more likely an anxiety type of reaction. She has a history of an anxiety disorder and has other somatic complaints consistent with this. The patient was transferred to the ICU and is currently in the ICU. 2. Type 2 diabetes mellitus. 3. Hypertension. 4. Atherosclerosis. 5. Generalized anxiety disorder. PLAN: 1. Admit to ICU for further evaluation and treatment. 2. Neurology consultation called with Dr. Centeno, who knows the patient. 3. Resume routine medications. 4. Speech Therapy consultation. Dictated By: Wiley Cameron MD /vladimir/deyanira /Document#: [id number]
[2017-03-29] MEDS ORDERED: SOD CHLORIDE 0.45% 1,000 ML IV SCH (20:00)
[2017-03-29] MEDS: LATANOPROST 0.005% 2.5 ML OPH BOTH EYES SCH (21:11)
[2017-03-29] MEDS: DIPYRIDAMOLE/ASPIRIN (SR) CAP PO SCH (21:11)
[2017-03-30] VITALS (13 sets, daily range): BP systolic 94–136; BP diastolic 47–72; PULSE 67–79; RESP 12–19
[2017-03-30] MEDS: ACCU-CHEK XX SCH (02:09)
[2017-03-30] MEDS: PANTOPRAZOLE 40 MG INJ IV SCH (06:00)
[2017-03-30] MEDS: PANTOPRAZOLE (EC) 40 MG TAB PO SCH (06:07)
[2017-03-30] MEDS: INSULIN ASPART [NOVOLOG] 3 ML PEN SC SCH ×4 (07:55→21:00)
[2017-03-30] MEDS: DIPYRIDAMOLE/ASPIRIN (SR) CAP PO SCH ×2 (08:46→22:12)
[2017-03-30] MEDS: LEVETIRACETAM (100 MG/ML) 5ML CUP PO SCH ×2 (08:46→22:12)
[2017-03-30] MEDS: DOCUSATE SODIUM 100 MG CAP PO SCH ×2 (08:47→22:12)
--- NOTE | 2017-03-30 11:28 | PN ---
Date/Time of Note Date/Time of Note DATE: 03/30/17 TIME: 11:19 Assessment/Plan VTE Prophylaxis VTE Prophylaxis Intervention: ambulation Lines/Catheters [facility] Saline Lock Urinary Cath still in place: No Assessment/Plan Chief Complaint/Hosp Course 1. ALOC , now resolved . She has no evidence of an acute stroke . R/O anxiety , TIA , possible seizures . 2. GTN 3. DM 4. Generalized anxiety disorder . She is better ; however , difficult know is this is confusion / anxiety disorder vs TIA vs post seizure . Will call neurology consult .Will D/C Ghotra catheter , D/C Iv fluid , start PT . Problems: Subjective 24 Hr Interval Summary Free Text/Dictation She is in bed . Lethargic but does rouse to verbal stimuli . Constitutional: no complaints Eyes: no complaints ENT: no complaints Respiratory: no complaints Cardiovascular: no complaints Gastrointestinal: no complaints Musculoskeletal: no complaints Skin: laceration Psychological: anxiety Exam/Review of Systems Vital Signs Vitals Vital Signs Date Time Temp Pulse Resp B/P Pulse Ox O2 Delivery O2 Flow Rate FiO2 03/30/17 08:35 75 03/30/17 07:29 97.5 18 109/57 97 03/30/17 02:00 Room Air 03/28/17 21:31 2 Intake and Output 03/29/17 03/29/17 03/30/17 14:59 22:59 06:59 Intake Total 775 ml 200 ml Output Total 70 ml 276 ml 105 ml Balance -70 ml 499 ml 95 ml Results Result Diagram: 03/29/17 0533 03/29/17 0533 Results 24 hrs Laboratory Tests Test 03/29/17 12:15 03/29/17 12:26 03/29/17 17:41 03/29/17 21:10 Urine Color YELLOW Urine Clarity SLIGHTLY CLOUDY A Urine pH 6.0 Urine Specific [place] 1.044 H Urine Ketones NEGATIVE Urine Nitrite POSITIVE A Urine Bilirubin NEGATIVE Urine Urobilinogen NEGATIVE Urine Leukocyte Esterase NEGATIVE Urine Microscopic RBC 3 Urine Microscopic WBC 2 Urine Bacteria FEW A Urine Hemoglobin NEGATIVE Urine Glucose NEGATIVE Urine Total Protein NEGATIVE Urine Opiates Screen Negative Urine Barbiturates Negative Urine Amphetamines Screen Negative Urine Benzodiazepines Screen Negative Urine Cocaine Screen Negative Urine Cannabinoids Negative Bedside Glucose 149 196 165 Test 03/30/17 02:07 03/30/17 08:11 Bedside Glucose 150 136 Medications Medications Current Medications Labetalol HCl (Labetalol) 10 mg Q10M PRN IV ELEVATED BLOOD PRESSURE; Start 03/28 at 23:30 Docusate Sodium (Colace) 100 mg BID PO Last administered on 03/30/17 08:47; Admin Dose 100 MG; Start 03/29/17 at 09:00 Latanoprost (Xalatan) 1 drop QHS BOTH EYES Last administered on 03/29/17 21:11 ; Admin Dose 1 DROP; Start 03/29/17 at 21:00 Levetiracetam (Keppra Liquid) 500 mg BID PO Last administered on 03/30/17 08:46 ; Admin Dose 500 MG; Start 03/29/17 at 09:00 Lorazepam (Ativan) 0.5 mg Q8H PRN IV ANXIETY Last administered on 03/29/17 08: 15; Admin Dose 0.5 MG; Start 03/28/17 at 23:30 Pantoprazole (Protonix Iv) 40 mg DAILY@06 IV Last administered on 03/29/17 10: 40; Admin Dose 40 MG; Start 03/29/17 at 06:00 Miscellaneous Information 1 ea NOTE XX ; Start 03/28/17 at 23:45 Glucose (Glutose) 15 gm Q15M PRN PO DECREASED GLUCOSE; Start 03/28/17 at 23:45 Glucose (Glutose) 22.5 gm Q15M PRN PO DECREASED GLUCOSE; Start 03/28/17 at 23:45 Dextrose (D50w Syringe) 25 ml Q15M PRN IV DECREASED GLUCOSE; Start 03/28/17 at 23:45 Dextrose (D50w Syringe) 50 ml Q15M PRN IV DECREASED GLUCOSE; Start 03/28/17 at 23:45 Glucagon (Glucagen) 1 mg Q15M PRN IM DECREASED GLUCOSE; Start 03/28/17 at 23:45 Glucose (Glutose) 15 gm Q15M PRN BUCCAL DECREASED GLUCOSE; Start 03/28/17 at 23: 45 Lorazepam (Ativan) 0.5 mg Q8H PRN PO ANXIETY Last administered on 03/30/17 06: 11; Admin Dose 0.5 MG; Start 03/29/17 at 10:30 Ondansetron HCl (Zofran Inj) 4 mg Q6H PRN IV NAUSEA AND/OR VOMITING; Start 03/29 at 10:30 Acetaminophen (Tylenol Tab) 650 mg Q6H PRN PO PAIN LEVEL 1-3 OR FEVER; Start at 10:30 Diagnostic Test (Pha) (Accu-Chek) 1 ea 02 XX Last administered on 03/30/17 02: 09; Admin Dose 1 EA; Start 03/30/17 at 02:00 Dipyridamole/ Aspirin (Aggrenox) 1 cap BID PO Last administered on 03/30/17 08: 46; Admin Dose 1 CAP; Start 03/29/17 at 21:00 Lorazepam (Ativan) 0.5 mg Q8H PRN PO ANXIETY; Start 03/29/17 at 20:00 Pantoprazole 40 mg 40 mg DAILY@06 PO Last administered on 03/30/17 06:07; Admin Dose 40 MG; Start 03/30/17 at 06:00 Sodium Chloride (1/2 NS) 1,000 ml @ 50 mls/hr Q20H IV Last administered on 03/29 21:16; Admin Dose 50 MLS/HR; Start 03/29/17 at 20:00 ILAN CASTELAN MD Mar 30, 2017 11:28
--- NOTE | 2017-03-30 12:31 | CONS ---
Date/Time of Note Date/Time of Note DATE: 03/30/17 TIME: 12:26 Assessment/Plan Assessment/Plan Chief Complaint/Hosp Course 72 year old female with history of prior Right SOPHIA infarcts, DM, HLD, anxiety p/ w AMS and difficulty speech s/p IV tPA. Symptoms seem to be improving, she seems to have a very flat affect, slow to response. It is very common to see post stroke depression especially with Right SOPHIA territory infarctions. Patient denies any depressive symptoms or stressors at home, may consider outpatient psychiatry evaluation as well to determine if appropriate to initiate medications. Recommend optimization of all risk factors for secondary stroke prevention high intensity statin, HBA1c is at goal, SBP <140/90 Treatment for UTI PT/OT/Speech may follow w neurology as outpatient Problems: Consultation Date/Type/Reason Admit Date/Time Mar 28, 2017 at 23:45 Date of Consultation: Mar 30, 2017 Type of Consultation: Neurology Reason for Consultation evaluation for acute neurologic issue Referring Provider: ILAN CASTELAN MD Hx of Present Illness 72 year old female with history of prior Right SOPHIA infarcts on Aggrenox, DM, HTN , WILVER p/w AMS and difficulty speaking seen by tele neurology. No acute infarction or LVO, was administered IV tPA upon recommendation of tele neurologist. Her symptoms seemed to have improved, no current neurologic deficits on her examination. MRI Brain shows no acute ICH, old infarct right anterior frontal lobe right cingulate gyrus SOPHIA territory. WBC today slightly elevated 11.9, UA + bacteria and + nitrite. Constitutional: no complaints Eyes: no complaints ENT: no complaints Respiratory: no complaints Cardiovascular: no complaints Gastrointestinal: no complaints Musculoskeletal: no complaints Skin: laceration Psychological: anxiety Social History Smoking Status: Former smoker Exam/Review of Systems Vital Signs Vitals Vital Signs Date Time Temp Pulse Resp B/P Pulse Ox O2 Delivery O2 Flow Rate FiO2 03/30/17 12:07 76 03/30/17 11:49 98.2 18 110/57 97 03/30/17 02:00 Room Air 03/28/17 21:31 2 Intake and Output 03/29/17 03/29/17 03/30/17 15:00 23:00 07:00 Intake Total 75 ml 750 ml 150 ml Output Total 70 ml 311 ml 70 ml Balance 5 ml 439 ml 80 ml Exam awake and alert slow to respond oriented x3 very flat affected CN: II-XII grossly intact Motor: no drift in arms or legs 5/5 Tone wnl Sensory intact throughout Coordination: no ataxia Reflexes 2+ symmetric toes down Results Result Diagram: 03/29/1733 03/29/17 0533 Results 24 hrs Laboratory Tests Test 03/29/17 17:41 03/29/17 21:10 03/30/17 02:07 03/30/17 08:11 Bedside Glucose 196 165 150 136 Test 03/30/17 12:09 Bedside Glucose 162 Medications Medications Current Medications Labetalol HCl (Labetalol) 10 mg Q10M PRN IV ELEVATED BLOOD PRESSURE; Start 03/28 at 23:30 Docusate Sodium (Colace) 100 mg BID PO Last administered on 03/30/17 08:47; Admin Dose 100 MG; Start 03/29/17 at 09:00 Latanoprost (Xalatan) 1 drop QHS BOTH EYES Last administered on 03/29/17 21:11 ; Admin Dose 1 DROP; Start 03/29/17 at 21:00 Levetiracetam (Keppra Liquid) 500 mg BID PO Last administered on 03/30/17 08:46 ; Admin Dose 500 MG; Start 03/29/17 at 09:00 Lorazepam (Ativan) 0.5 mg Q8H PRN IV ANXIETY Last administered on 03/29/17 08: 15; Admin Dose 0.5 MG; Start 03/28/17 at 23:30 Pantoprazole (Protonix Iv) 40 mg DAILY@06 IV Last administered on 03/29/17 10: 40; Admin Dose 40 MG; Start 03/29/17 at 06:00 Miscellaneous Information 1 ea NOTE XX ; Start 03/28/17 at 23:45 Glucose (Glutose) 15 gm Q15M PRN PO DECREASED GLUCOSE; Start 03/28/17 at 23:45 Glucose (Glutose) 22.5 gm Q15M PRN PO DECREASED GLUCOSE; Start 03/28/17 at 23:45 Dextrose (D50w Syringe) 25 ml Q15M PRN IV DECREASED GLUCOSE; Start 03/28/17 at 23:45 Dextrose (D50w Syringe) 50 ml Q15M PRN IV DECREASED GLUCOSE; Start 03/28/17 at 23:45 Glucagon (Glucagen) 1 mg Q15M PRN IM DECREASED GLUCOSE; Start 03/28/17 at 23:45 Glucose (Glutose) 15 gm Q15M PRN BUCCAL DECREASED GLUCOSE; Start 03/28/17 at 23: 45 Lorazepam (Ativan) 0.5 mg Q8H PRN PO ANXIETY Last administered on 03/30/17 06: 11; Admin Dose 0.5 MG; Start 03/29/17 at 10:30 Ondansetron HCl (Zofran Inj) 4 mg Q6H PRN IV NAUSEA AND/OR VOMITING; Start 03/29 at 10:30 Acetaminophen (Tylenol Tab) 650 mg Q6H PRN PO PAIN LEVEL 1-3 OR FEVER; Start at 10:30 Diagnostic Test (Pha) (Accu-Chek) 1 ea 02 XX Last administered on 03/30/17 02: 09; Admin Dose 1 EA; Start 03/30/17 at 02:00 Dipyridamole/ Aspirin (Aggrenox) 1 cap BID PO Last administered on 03/30/17 08: 46; Admin Dose 1 CAP; Start 03/29/17 at 21:00 Lorazepam (Ativan) 0.5 mg Q8H PRN PO ANXIETY; Start 03/29/17 at 20:00 Pantoprazole (Protonix Tab) 40 mg DAILY@06 PO Last administered on 03/30/17 06: 07; Admin Dose 40 MG; Start 03/30/17 at 06:00 HAYES LEON MD Mar 30, 2017 12:31
--- NOTE | 2017-03-30 15:28 | RADRPT ---
Vent Rate: 74 bpm RR Interval: 0 msec OR Interval: 170 msec QRS Duration: 96 msec QT Interval: 394 msec QTC Interval: 437 msec P-R-T Frankewing: 38 - -33 - 0 degrees Normal sinus rhythm Left axis deviation ST amp; T wave abnormality, consider inferolateral ischemia Abnormal ECG Electronically Signed By: Rodolfo Castellano [id number]
[2017-03-30 17:08] LABS: HOMOCYSTEINE - CARDIOVASCULAR 15.5 umol/L (<10.4)
[2017-03-30] MEDS: LATANOPROST 0.005% 2.5 ML OPH BOTH EYES SCH (21:00)
[2017-03-31] VITALS (13 sets, daily range): BP systolic 99–150; BP diastolic 54–75; PULSE 67–93; RESP 16–20
[2017-03-31] MEDS: ACCU-CHEK XX SCH (02:00)
[2017-03-31] MEDS: PANTOPRAZOLE (EC) 40 MG TAB PO SCH (06:20)
[2017-03-31 07:13] LABS: BASOPHILS % 0.3 % (0.0-2.0); EOSINOPHILS # 0.2 10^3/ul (0.0-0.5); HEMATOCRIT 35.8 % (37.0-47.0); HEMOGLOBIN 12.1 g/dl (12.0-16.0); LYMPHOCYTES # 2.4 10^3/ul (0.8-2.9); MEAN CORPUSCULAR HEMOGLOBIN 32.9 pg (29.0-33.0); MEAN CORPUSCULAR HGB CONC 33.8 g/dl (32.0-37.0); MEAN CORPUSCULAR VOLUME 97.3 fl (82.0-101.0); MEAN PLATELET VOLUME 9.5 fl (7.4-10.4); MONOCYTE # 0.7 10^3/ul (0.3-0.9); MONOCYTES % 7.9 % (0.0-11.0); NEUTROPHILS % 61.5 % (39.0-77.0); PLATELET COUNT 306 10^3/UL (140-415); RED BLOOD COUNT 3.68 10^6/ul (4.20-5.40); RED CELL DISTRIBUTION WIDTH 12.1 % (11.5-14.5); WHITE BLOOD COUNT 8.6 10^3/ul (4.8-10.8)
[2017-03-31 07:44] LABS: ALBUMIN 3.3 g/dl (3.3-4.9); ALBUMIN/GLOBULIN RATIO 1.26; BILIRUBIN,INDIRECT 0.1 mg/dl (0-1.1); BILIRUBIN,TOTAL 0.1 mg/dl (0.2-1.3); CALCIUM 9.1 mg/dl (8.4-10.2); CREATININE 0.74 mg/dl (0.44-1.00); POTASSIUM 3.5 mmol/L (3.5-5.1); TOTAL PROTEIN 5.9 g/dl (6.1-8.1)
[2017-03-31] MEDS ORDERED: DIMETHICONE STICK TOP ONE (08:30)
[2017-03-31] MEDS: metFORMIN 500 MG TAB PO SCH ×2 (08:31→17:41)
[2017-03-31] MEDS: DIPYRIDAMOLE/ASPIRIN (SR) CAP PO SCH ×2 (08:32→21:10)
[2017-03-31] MEDS: DOCUSATE SODIUM 100 MG CAP PO SCH ×2 (08:34→21:10)
[2017-03-31] MEDS: LEVETIRACETAM (100 MG/ML) 5ML CUP PO SCH ×2 (08:34→21:10)
[2017-03-31] MEDS: INSULIN ASPART [NOVOLOG] 3 ML PEN SC SCH ×4 (08:38→21:00)
--- NOTE | 2017-03-31 17:06 | PN ---
Date/Time of Note Date/Time of Note DATE: 03/31/17 TIME: 17:05 Assessment/Plan VTE Prophylaxis VTE Prophylaxis Intervention: other Lines/Catheters [facility]from [facility] Saline Lock Urinary Cath still in place: No Assessment/Plan Assessment/Plan 1. ALOC , now resolved . She has no evidence of an acute stroke . R/O anxiety , TIA , possible seizures . -still very weak, working with rehab, d/c planning, awaiting neuro clearance, check am labs 2. GTN 3. DM 4. Generalized anxiety disorder . She is better ; however , difficult know is this is confusion / anxiety disorder vs TIA vs post seizure . Will call neurology consult .Will D/C Ghotra catheter , D/C Iv fluid , start PT . Subjective 24 Hr Interval Summary Constitutional: improved, no complaints Eyes: no complaints Gastrointestinal: no complaints Genitourinary: no complaints Musculoskeletal: no complaints Skin: no complaints Exam/Review of Systems Vital Signs Vitals Vital Signs Date Time Temp Pulse Resp B/P Pulse Ox O2 Delivery O2 Flow Rate FiO2 03/31/17 16:00 68 03/31/17 15:41 98.1 18 114/75 97 03/30/17 02:00 Room Air 03/28/17 21:31 2 Intake and Output 03/30/17 03/30/17 03/31/17 15:00 23:00 07:00 Intake Total 220 ml 400 ml Output Total 500 ml Balance -280 ml 400 ml Exam Constitutional: alert, oriented Psych: nl mood/affect Head: normocephalic Eyes: nl conjunctiva Neck: supple Respiratory: clear to auscultation Cardiovascular: regular rate and rhythm Gastrointestinal: nl liver, spleen, soft Results Result Diagram: 03/31/17 0611 03/31/17 0610 Results 24 hrs Laboratory Tests Test 03/30/17 17:09 03/30/17 22:04 03/31/17 06:10 03/31/17 06:11 Bedside Glucose 168 140 Sodium Level 135 Potassium Level 3.5 Chloride Level 101 Carbon Dioxide Level 28 Anion Gap 10 Blood Urea Nitrogen 23 H Creatinine 0.74 Glucose Level 193 Calcium Level 9.1 Total Bilirubin 0.1 L Direct Bilirubin 0.00 Indirect Bilirubin 0.1 Aspartate Amino Transf (AST/SGOT) 12 L Alanine Aminotransferase (ALT/SGPT) 28 Alkaline Phosphatase 129 H Total Protein 5.9 L Albumin 3.3 Globulin 2.60 Albumin/Globulin Ratio 1.26 White Blood Count 8.6 # Red Blood Count 3.68 L Hemoglobin 12.1 Hematocrit 35.8 L Mean Corpuscular Volume 97.3 Mean Corpuscular Hemoglobin 32.9 Mean Corpuscular Hemoglobin Concent 33.8 Red Cell Distribution Width 12.1 Platelet Count 306 Mean Platelet Volume 9.5 Neutrophils % 61.5 Lymphocytes % 28.0 Monocytes % 7.9 Eosinophils % 2.0 Basophils % 0.3 Nucleated Red Blood Cells % 0.0 Neutrophils # (Manual) 5.3 Lymphocytes # 2.4 Monocytes # 0.7 Eosinophils # 0.2 Basophils # 0.0 Nucleated Red Blood Cells # 0.0 Test 03/31/17 07:49 03/31/17 11:57 Bedside Glucose 180 143 Medications Medications Current Medications Labetalol HCl (Labetalol) 10 mg Q10M PRN IV ELEVATED BLOOD PRESSURE; Start 03/28 at 23:30 Docusate Sodium (Colace) 100 mg BID PO Last administered on 03/30/17 22:12; Admin Dose 100 MG; Start 03/29/17 at 09:00 Latanoprost (Xalatan) 1 drop QHS BOTH EYES Last administered on 03/29/17 21:11 ; Admin Dose 1 DROP; Start 03/29/17 at 21:00 Levetiracetam (Keppra Liquid) 500 mg BID PO Last administered on 03/31/17 08:34 ; Admin Dose 500 MG; Start 03/29/17 at 09:00 Lorazepam (Ativan) 0.5 mg Q8H PRN IV ANXIETY Last administered on 03/29/17 08: 15; Admin Dose 0.5 MG; Start 03/28/17 at 23:30 Miscellaneous Information 1 ea NOTE XX ; Start 03/28/17 at 23:45 Glucose (Glutose) 15 gm Q15M PRN PO DECREASED GLUCOSE; Start 03/28/17 at 23:45 Glucose (Glutose) 22.5 gm Q15M PRN PO DECREASED GLUCOSE; Start 03/28/17 at 23:45 Dextrose (D50w Syringe) 25 ml Q15M PRN IV DECREASED GLUCOSE; Start 03/28/17 at 23:45 Dextrose (D50w Syringe) 50 ml Q15M PRN IV DECREASED GLUCOSE; Start 03/28/17 at 23:45 Glucagon (Glucagen) 1 mg Q15M PRN IM DECREASED GLUCOSE; Start 03/28/17 at 23:45 Glucose (Glutose) 15 gm Q15M PRN BUCCAL DECREASED GLUCOSE; Start 03/28/17 at 23: 45 Ondansetron HCl (Zofran Inj) 4 mg Q6H PRN IV NAUSEA AND/OR VOMITING; Start 03/29 at 10:30 Acetaminophen (Tylenol Tab) 650 mg Q6H PRN PO PAIN LEVEL 1-3 OR FEVER; Start at 10:30 Diagnostic Test (Pha) (Accu-Chek) 1 ea 02 XX Last administered on 03/30/17 02: 09; Admin Dose 1 EA; Start 03/30/17 at 02:00 Dipyridamole/ Aspirin (Aggrenox) 1 cap BID PO Last administered on 03/31/17 08: 32; Admin Dose 1 CAP; Start 03/29/17 at 21:00 Lorazepam (Ativan) 0.5 mg Q8H PRN PO ANXIETY; Start 03/29/17 at 20:00 Pantoprazole (Protonix Tab) 40 mg DAILY@06 PO Last administered on 03/31/17 06: 20; Admin Dose 40 MG; Start 03/30/17 at 06:00 JAMES GIRARD MD Mar 31, 2017 17:06
[2017-03-31] MEDS: LATANOPROST 0.005% 2.5 ML OPH BOTH EYES SCH (21:00)
[2017-04-01] VITALS (12 sets, daily range): BP systolic 136–149; BP diastolic 60–73; PULSE 66–90; RESP 17–20
[2017-04-01] MEDS: LORAZEPAM 2 MG INJ IV PRN (01:35)
[2017-04-01] MEDS: ACCU-CHEK XX SCH (01:51)
[2017-04-01] MEDS: PANTOPRAZOLE (EC) 40 MG TAB PO SCH (06:17)
[2017-04-01] MEDS: metFORMIN 500 MG TAB PO SCH ×2 (07:56→17:44)
[2017-04-01] MEDS: INSULIN ASPART [NOVOLOG] 3 ML PEN SC SCH ×4 (07:59→21:00)
[2017-04-01] MEDS: DIPYRIDAMOLE/ASPIRIN (SR) CAP PO SCH ×2 (08:55→21:00)
[2017-04-01] MEDS: LEVETIRACETAM (100 MG/ML) 5ML CUP PO SCH ×2 (08:57→21:00)
[2017-04-01] MEDS: DOCUSATE SODIUM 100 MG CAP PO SCH ×2 (09:00→21:00)
[2017-04-01] MEDS: LORAZEPAM 0.5 MG TAB PO PRN (09:51)
[2017-04-01 11:32] LABS: BASOPHILS % 0.4 % (0.0-2.0); EOSINOPHILS # 0.3 10^3/ul (0.0-0.5); EOSINOPHILS % 3.1 % (0.0-7.0); HEMATOCRIT 36.6 % (37.0-47.0); HEMOGLOBIN 11.7 g/dl (12.0-16.0); LYMPHOCYTES # 2.8 10^3/ul (0.8-2.9); LYMPHOCYTES % 34.3 % (15.0-51.0); MEAN CORPUSCULAR HEMOGLOBIN 31.6 pg (29.0-33.0); MEAN CORPUSCULAR VOLUME 98.9 fl (82.0-101.0); MEAN PLATELET VOLUME 9.4 fl (7.4-10.4); MONOCYTE # 0.8 10^3/ul (0.3-0.9); MONOCYTES % 9.5 % (0.0-11.0); NEUTROPHILS % 52.5 % (39.0-77.0); PLATELET COUNT 290 10^3/UL (140-415); RED CELL DISTRIBUTION WIDTH 12.2 % (11.5-14.5); WHITE BLOOD COUNT 8.2 10^3/ul (4.8-10.8)
--- NOTE | 2017-04-01 11:38 | PN ---
Date/Time of Note Date/Time of Note DATE: 04/01/17 TIME: 11:37 Assessment/Plan VTE Prophylaxis VTE Prophylaxis Intervention: other Lines/Catheters IV C[facility]ter Type [facility] Saline Lock Urinary Cath still in place: No Assessment/Plan Assessment/Plan 1. ALOC , now resolved . She has no evidence of an acute stroke . R/O anxiety , TIA , possible seizures . -still very weak, working with rehab, d/c planning, awaiting neuro clearance, check am labs 2. GTN 3. DM 4. Generalized anxiety disorder . She is better ; however , difficult know is this is confusion / anxiety disorder vs TIA vs post seizure . Will call neurology consult .Will D/C Ghotra catheter , D/C Iv fluid , start PT . d/c planning, labs wnl - no further checks, d/w brother - d/c tomorrow after neuro clearance Subjective 24 Hr Interval Summary Constitutional: improved, no complaints Eyes: no complaints Respiratory: no complaints Cardiovascular: no complaints Gastrointestinal: no complaints Exam/Review of Systems Vital Signs Vitals Vital Signs Date Time Temp Pulse Resp B/P Pulse Ox O2 Delivery O2 Flow Rate FiO2 04/01/17 11:30 97.6 80 17 138/60 97 03/30/17 02:00 Room Air 03/28/17 21:31 2 Intake and Output 03/31/17 03/31/17 04/01/17 15:00 23:00 07:00 Intake Total 750 ml 600 ml Balance 750 ml 600 ml Exam Constitutional: alert, oriented, well developed Head: normocephalic Eyes: nl conjunctiva Neck: non-tender, supple Respiratory: clear to auscultation Cardiovascular: nl pulses, regular rate and rhythm Results Result Diagram: 04/01/17 1053 03/31/17 0610 Results 24 hrs Laboratory Tests Test 03/31/17 11:57 03/31/17 17:26 03/31/17 21:09 04/01/17 07:49 Bedside Glucose 143 145 127 155 Test 04/01/17 10:53 White Blood Count 8.2 Red Blood Count 3.70 L Hemoglobin 11.7 L Hematocrit 36.6 L Mean Corpuscular Volume 98.9 Mean Corpuscular Hemoglobin 31.6 Mean Corpuscular Hemoglobin Concent 32.0 Red Cell Distribution Width 12.2 Platelet Count 290 Mean Platelet Volume 9.4 Neutrophils % 52.5 Lymphocytes % 34.3 Monocytes % 9.5 Eosinophils % 3.1 Basophils % 0.4 Nucleated Red Blood Cells % 0.0 Neutrophils # (Manual) 4.3 Lymphocytes # 2.8 Monocytes # 0.8 Eosinophils # 0.3 Basophils # 0.0 Nucleated Red Blood Cells # 0.0 Medications Medications Current Medications Labetalol HCl (Labetalol) 10 mg Q10M PRN IV ELEVATED BLOOD PRESSURE; Start 03/28 at 23:30 Docusate Sodium (Colace) 100 mg BID PO Last administered on 03/31/17 21:10; Admin Dose 100 MG; Start 03/29/17 at 09:00 Latanoprost (Xalatan) 1 drop QHS BOTH EYES Last administered on 03/29/17 21:11 ; Admin Dose 1 DROP; Start 03/29/17 at 21:00 Levetiracetam (Keppra Liquid) 500 mg BID PO Last administered on 04/01/17 08: 57; Admin Dose 500 MG; Start 03/29/17 at 09:00 Lorazepam (Ativan) 0.5 mg Q8H PRN IV ANXIETY Last administered on 04/01/17 01: 35; Admin Dose 0.5 MG; Start 03/28/17 at 23:30 Miscellaneous Information 1 ea NOTE XX ; Start 03/28/17 at 23:45 Glucose (Glutose) 15 gm Q15M PRN PO DECREASED GLUCOSE; Start 03/28/17 at 23:45 Glucose (Glutose) 22.5 gm Q15M PRN PO DECREASED GLUCOSE; Start 03/28/17 at 23:45 Dextrose (D50w Syringe) 25 ml Q15M PRN IV DECREASED GLUCOSE; Start 03/28/17 at 23:45 Dextrose (D50w Syringe) 50 ml Q15M PRN IV DECREASED GLUCOSE; Start 03/28/17 at 23:45 Glucagon (Glucagen) 1 mg Q15M PRN IM DECREASED GLUCOSE; Start 03/28/17 at 23:45 Glucose (Glutose) 15 gm Q15M PRN BUCCAL DECREASED GLUCOSE; Start 03/28/17 at 23: 45 Ondansetron HCl (Zofran Inj) 4 mg Q6H PRN IV NAUSEA AND/OR VOMITING; Start 03/29 at 10:30 Acetaminophen (Tylenol Tab) 650 mg Q6H PRN PO PAIN LEVEL 1-3 OR FEVER; Start at 10:30 Diagnostic Test (Pha) (Accu-Chek) 1 ea 02 XX Last administered on 03/30/17 02: 09; Admin Dose 1 EA; Start 03/30/17 at 02:00 Dipyridamole/ Aspirin (Aggrenox) 1 cap BID PO Last administered on 04/01/17 08 :55; Admin Dose 1 CAP; Start 03/29/17 at 21:00 Lorazepam (Ativan) 0.5 mg Q8H PRN PO ANXIETY Last administered on 04/01/17 09: 51; Admin Dose 0.5 MG; Start 03/29/17 at 20:00 Pantoprazole (Protonix Tab) 40 mg DAILY@06 PO Last administered on 04/01/17 06 :17; Admin Dose 40 MG; Start 03/30/17 at 06:00 JAMES GIRARD MD Apr 01, 2017 11:38
[2017-04-01 12:17] LABS: CALCIUM 9.1 mg/dl (8.4-10.2); CREATININE 0.63 mg/dl (0.44-1.00); MAGNESIUM 1.9 mg/dl (1.7-2.5); PHOSPHORUS 2.6 mg/dl (2.5-4.9)
[2017-04-01 12:18] LABS: ALBUMIN 3.5 g/dl (3.3-4.9); ALBUMIN/GLOBULIN RATIO 1.2; TOTAL PROTEIN 6.4 g/dl (6.1-8.1)
[2017-04-01] MEDS: LATANOPROST 0.005% 2.5 ML OPH BOTH EYES SCH (21:00)
[2017-04-02] VITALS (10 sets, daily range): BP systolic 138–163; BP diastolic 67–71; PULSE 70–80; RESP 18–19
[2017-04-02] MEDS: LORAZEPAM 0.5 MG TAB PO PRN ×3 (01:25→09:32)
[2017-04-02] MEDS: ACCU-CHEK XX SCH (02:00)
[2017-04-02] MEDS: PANTOPRAZOLE (EC) 40 MG TAB PO SCH (06:00)
[2017-04-02] MEDS: INSULIN ASPART [NOVOLOG] 3 ML PEN SC SCH ×2 (07:55→12:21)
[2017-04-02] MEDS: DOCUSATE SODIUM 100 MG CAP PO SCH ×2 (08:11→08:18)
[2017-04-02] MEDS: LEVETIRACETAM (100 MG/ML) 5ML CUP PO SCH (08:11)
[2017-04-02] MEDS: DIPYRIDAMOLE/ASPIRIN (SR) CAP PO SCH (08:11)
[2017-04-02] MEDS: metFORMIN 500 MG TAB PO SCH (08:11)
--- NOTE | 2017-04-02 10:14 | RADRPT ---
Echocardiogram Report Patient Name: DEJAH SMITH Gender: Female Date: 1945 Study Date: 29-Mar-2017 Dryerman/Woman: Shai [facility] Location: [facility] Ref. Physician: ZAYRA SANCHEZ Quality: Adequate Procedures: Transthoracic echocardiogram with complete 2D, M-Mode, and doppler examination. Indications: Cerebrovascular Accident. 2D/M Mode Doppler Measurement Value Normal Ranges Measurement Value Normal Ranges LVIDd 2D 4.1 3.5 - 5.6 cm AV Peak Ralph 1.2 m/sec LVIDs 2D 2.8 2.1 - 4.1 cm AV Peak PG 5.0 mmHg FS 2D 32.5 % LVOT Peak Ralph 0.9 m/sec LVPWd 2D 1.2 0.6 - 1.1 cm LVOT Peak PG 3.0 mmHg IVSd 2D 1.3 0.6 - 1.1 cm MV E Peak Ralph 0.5 m/sec IVS/LVPW 2D 1.0 MV A Peak Ralph 0.8 m/sec AoR Diam 2D 2.3 2.0 - 3.7 cm MV E/A 0.6 LA/Ao 2D 2 0 - 1 MV Decel Time 123 msec EDV 2D 69.9 cm3 MV E/A 0.6 ESV 2D 21.5 cm3 LA Dimen 2D 3.5 2.3 - 4.0 cm Findings Left Ventricle: Normal left ventricular systolic function. No obvious wall motion abnormalities in areas visualized. Normal left ventricular cavity size. Mild concentric left ventricular hypertrophy. Ejection fraction is visually estimated at 60 %. Tissue Doppler/Mitral Doppler indices are consistent with impaired relaxation (Stage I diastolic dysfunction). Right Ventricle: Normal right ventricular size. Normal right ventricular systolic function. Left Atrium: The left atrium is normal in size. Right Atrium: The right atrium is normal in size. Mitral Valve: Mitral valve is not well visualized. Mild mitral leaflet calcification. Mild mitral annular calcification. Trace mitral regurgitation. Aortic Valve: Aortic valve not well visualized. Aortic valve opens normally. Trace aortic valve regurgitation. Tricuspid Valve: Tricuspid valve not well visualized. Unable to obtain RVSP due to minimal presence of tricuspid regurgitation. There is trace tricuspid regurgitation. Pulmonic Valve: Pulmonic valve not well visualized. There is trace pulmonic regurgitation. Pericardium: Normal pericardium with no significant pericardial effusion. Aorta: Not well visualized. IVC: Normal size and normal respiratory collapse consistent with normal right atrial pressure. Conclusions Poor quality study with limited visualization of cardiac structures. Normal left ventricular systolic function. No obvious wall motion abnormalities in areas visualized. Normal left ventricular cavity size. Mild concentric left ventricular hypertrophy. Ejection fraction is visually estimated at 60 %. Tissue Doppler/Mitral Doppler indices are consistent with impaired relaxation (Stage I diastolic dysfunction). Poor quality study, no obvious vegetation, masses, or thrombi seen. No significant valvular stenosis or regurgitation seen. Normal right ventricular size. Normal right ventricular systolic function. Electronically Signed By: Pepe Jorgensen 02-Apr-2017 10:13:19 -0700 Patient Name: DEJAH SMITH Study Date: 29-Mar-[id number]
--- NOTE | 2017-04-02 15:40 | PDOCDIS ---
Discharge Instructions CONDITION Patient Condition: Good HOME CARE INSTRUCTIONS: Diet Instructions: Reduced CalorieSpecial Diet: Carb Controlled DietYour diet recommendation is: Carb Controlled Diet ACTIVITY: Activity Restrictions: Slowly Increase Activity Rest between Activity Avoid heavy lifting Do not Drive Do not operate Machinery Avoid Heavy Housework Bathing Restrictions: ShowerActivity Restrictions Comment: Resume Regular activites FOLLOW UP/APPOINTMENTS Follow-up Plan Home health to monitor BP . Patient to see Dr Cameron next week for evaluation and treatment . ILAN CASTELAN MD Apr 02, 2017 15:40
--- NOTE | 2017-04-07 09:03 | DS ---
DATE OF ADMISSION: 03/28/2017 DATE OF DISCHARGE: 04/02/2017 HISTORY OF PRESENT ILLNESS: This is a 72-year-old female who was admitted through the Emergency room after she presented with altered mental status, the patient's brother was present and gave most of the history as the patient is a poor historian. Apparently, the patient was in her usual state of health until the night of admission, when she was staring out and was unresponsive. This lasted for about 10 minutes. The patient then seemed confused and had difficulty speaking. The patient was brought in by a paramedics to the emergency room. The emergency room doctor evaluated the patient and did a Telo-neuro evaluation. The patient had a CT scan, which only showed an old stroke, no new hemorrhage or new stroke. The patient was then given tPA. The patient eventually woke up and at the time that I saw her for admission she was lethargic but had received some Ativan. She was responsive to me. The patient subsequently had a CTA of the head and neck. There was no evidence of an acute stroke or vessel blockage. The patient also had a brain MRI which showed no acute intracranial hemorrhage, infarct or mass. There was an old infarct involving the right anterior frontal lobe and right cingulate gyrus in the right anterior cerebral artery distribution. The patient was seen in consultation by a neurologist Dr. Santos. Neuro evaluation did not specify whether this was a TIA, versus a psychogenic episodes. My impression is that the patient had an episode of anxiety. She is quite fixated on having another stroke and has had several admissions to the hospital because she feels like "I am having a stroke". Her brother, who is very attentive to her, then calls paramedics and she was brought into the Emergency room. The patient has no evidence of either a new stroke for a cerebral arterial blockage. The patient will be sent home on her routine medication which a include Docusate sodium 100 mg twice a day. Latanoprost eyedrops, Keppra 500 mg twice a day. Lorazepam 0.5 mg every 8 hours as needed for anxiety, Tylenol as needed for pain. Aggrenox twice a day. Pantoprazole 40 mg a day. The patient was sent home to the care of her brother. The patient was in good condition at the time of discharge. The patient will see me in my office in follow-up in 1 week. FINAL DIAGNOSES: 1. Altered mental status. Etiology undetermined. Possible anxiety reaction. Less likely transient ischemic attack. 2. Hypertension. 3. Previous right cerebrovascular accident. 4. Generalized anxiety disorder. 5. Type 2 diabetes mellitus. Dictated By: Wiley Cameron MD /vladimir/chari /Document#: [id number] LEYDI
== END 2017-04-02 17:21 | disposition home health service (06) | DRG 948 ==
LOC: E/R 21:07 → ICU 23:45 → TEL 03-30 03:30
PROVIDERS: ADMIT Internal Medicine; ATTEND Internal Medicine
DX: R41.82 Altered mental status, unspecified (principal); I67.2 Cerebral atherosclerosis; N39.0 Urinary tract infection, site not specified; I10 Essential (primary) hypertension; E11.9 Type 2 diabetes mellitus without complications; F41.1 Generalized anxiety disorder; Z86.73 Personal history of transient ischemic attack (TIA), and cerebral infarction without residual deficits; E78.5 Hyperlipidemia, unspecified; R47.9 Unspecified speech disturbances
CPT/HCPCS: 36415; 70450; 70496; 70498; 70552; 71010; 80048; 80053; 80061; 80307; 81001; 82962; 83036; 83090; 83735; 84100; 84484; 85025; 85610; 85730; 86850; 86900; 86901; 87081; 87086; 92523; 92526; 92610; 93005; 93306; 93880; 96374; 96375; 97110; 97162; 97167; 97530; C9113; J1815; J2060; J2997; J7070; Q9967

== ENCOUNTER 2017-04-04 06:04 | Emergency (ER) | payer MEDICARE, OTHER ==
[~2017-04-04] VITALS: Ht 167.6 cm; Wt 70.9 kg
[~2017-04-04 06:04] MED LIST changes: +ASPI1CPM8 PO; +LEVE500S8 PO; +LORA0.5T PO
[2017-04-04 06:09] VITALS: Ht 167.6 cm; Wt 70.9 kg
[2017-04-04] MEDS ORDERED: LORAZEPAM 2 MG INJ IM ONE (06:30)
[2017-04-04 08:02] LABS: ADD UMIC YES; UR AMORPHOUS CRYSTAL FEW /HPF (NONE SEEN); UR ASCORBIC ACID NEGATIVE (NEGATIVE); UR BACTERIA FEW /HPF (NONE SEEN); UR BILIRUBIN (Dip) NEGATIVE (NEGATIVE); UR BLOOD (Dip) 1+ mg/dL (NEGATIVE); UR CLARITY CLOUDY (CLEAR); UR COLOR YELLOW (YELLOW); UR GLUCOSE (Dip) NEGATIVE (NEGATIVE); UR KETONES (Dip) NEGATIVE (NEGATIVE); UR LEUKOCYTE ESTERASE (Dip) 2+ Leu/ul (NEGATIVE); UR NITRITE (Dip) NEGATIVE (NEGATIVE); UR RBC 4 /HPF (0-5); UR SPECIFIC GRAVITY (Dip) 1.012 (1.003-1.030); UR TOTAL PROTEIN (Dip) NEGATIVE (NEGATIVE); UR UROBILINOGEN (Dip) NEGATIVE (NEGATIVE)
[2017-04-04] MEDS ORDERED: CEFTRIAXONE 1 GM/50 ML (PMX) 50 ML IVPB ONE (08:30)
[2017-04-04] MEDS ORDERED: LORA-441 PO (08:35)
[2017-04-04] MEDS ORDERED: CIPR500T4 PO (08:35)
[2017-04-04 09:00] VITALS: BP 158/74; RESP 18
--- NOTE | 2017-04-04 09:19 | ERD ---
ER Documentation Chief Complaint Date/Time DATE: 04/04/17 TIME: 09:14 Chief Complaint BRUNO RA39 from home, c/o SOB,denies CP HPI 72-year-old woman brought in by EMS from home for anxiety and complaints of "shortness of breath". Her is at the bedside and admits that she has had trouble sleeping tonight because of anxiety, she used to use lorazepam for her symptoms but she ran out many months ago. She denies chest pain, no calf or leg swelling, no cough, no fevers or chills, no vomiting or diarrhea. Patient was transported here by EMS without further complications. ROS All systems reviewed and are negative except as per history of present illness. Medications Home Meds Active Scripts Ciprofloxacin Hcl* (Ciprofloxacin Hcl*) 500 Mg Tablet, 500 MG PO BID for 5 Days , TAB Prov:LA LEHMAN MD 04/04/17 Lorazepam* (Ativan*) 0.5 Mg Tablet, 0.5 MG PO Q8 for ANXIETY, #10 TAB Prov:LA LEHMAN MD 04/04/17 Reported Medications Levetiracetam* (Levetiracetam*) 500 Mg/5 Ml Solution, 500 MG PO BID, ML 03/28/17 Lorazepam* (Lorazepam*) 0.5 Mg Tablet, 0.5 MG PO Q8 Y for ANXIETY, TAB 03/28/17 Aspirin-Dipyridamole* (Aggrenox*) 25-200 Mg Cpmp.12hr, 1 CAP PO BID, CAP 03/28/17 Omeprazole* (Omeprazole*) 20 Mg Capsule.dr, 40 MG PO DAILY, #30 CAP 03/05/17 Latanoprost (Latanoprost) 2.5 Ml Drops, 1 DROP BOTH EYES QHS, #1 BOTTLE INSTILL 1 DROP DAILY INTO BOTH EYES IN THE EVENING 02/10/17 Metformin* (Glucophage*) 500 Mg Tab, 500 MG PO WITH LUNCH DINNER, #60 TAB 04/03/16 Losartan Potassium* (Losartan Potassium*) 50 Mg Tablet, 50 MG PO BID, TAB 03/13/15 Metoprolol Tartrate* (Lopressor*) 50 Mg Tab, 50 MG PO BID, TAB 03/13/15 Discontinued Reported Medications Amlodipine Besylate* (Norvasc*) 5 Mg Tablet, 5 MG PO DAILY, TAB 03/13/15 Allergies Allergies: Coded Allergies: Penicillins (Unverified Allergy, Mild, 03/17/17) cortisone (Unverified Allergy, Mild, 03/17/17) prednisone (Unverified Allergy, Mild, 03/17/17) Sulfa (Sulfonamide Antibiotics) (Unverified Allergy, Unknown, 03/17/17) PMhx/Soc Anxiety, hypertension History of Surgery: No Anesthesia Reaction: No Hx Neurological Disorder: No Hx Respiratory Disorders: No Hx Cardiac Disorders: Yes (HTN, STENTS PLACEMENT OVER 10 YRS) Hx Psychiatric Problems: Yes Hx Miscellaneous Medical Probl: Yes (HTN, DM, GERD, CKD, CVA X 2) Hx Alcohol Use: No Hx Substance Use: No Hx Tobacco Use: No Smoking Status: Never smoker FmHx Family History: No diabetes Physical Exam Vitals Vital Signs Date Time Temp Pulse Resp B/P Pulse Ox O2 Delivery O2 Flow Rate FiO2 04/04/17 09:00 18 158/74 04/04/17 06:49 18 155/68 04/04/17 06:09 98.5 74 18 188/80 98 Physical Exam GENERAL: Well-developed, well-nourished, appears dehydrated, anxious, afebrile HEENT: Dry mucous membranes, pink conjunctiva, no cervical spine tenderness or step-off deformities, no goiter, no jaundice or icterus, extraocular movements intact without pain. No submandibular induration, and no pharyngeal erythema NEURO: Alert and oriented 3, cranial nerves II through XII intact bilaterally, pupils equal round reactive to light, no focal deficits or facial asymmetry, sensation intact distally Strength 5/5 in upper and lower extremities bilaterally CARDIAC: Regular rate and rhythm, no murmurs rubs or gallops LUNGS: Clear bilaterally no wheezing crackles or stridor ABDOMEN: Soft nontender, no guarding, no rigidity, no rebound, no psoas sign no obturator sign. Normoactive bowel sounds SKIN: Warm and dry to touch, no abrasions, contusions, or hematomas, no lacerations, no ecchymosis, no target lesions, and without ulcers EXTREMITIES: No clubbing cyanosis or edema, calves are bilaterally symmetrical, no Homans sign, no popliteal cord sign. Distal pulses equal and bilateral PSYCH: Anxious Results 24 hrs Laboratory Tests Test 04/04/17 07:45 Urine Color YELLOW Urine Clarity CLOUDY Urine pH 7.0 Urine Specific Jasper 1.012 Urine Ketones NEGATIVEmg/dL Urine Nitrite NEGATIVEmg/dL Urine Bilirubin NEGATIVEmg/dL Urine Urobilinogen NEGATIVEmg/dL Urine Leukocyte Esterase 2+Jose Luis/ul Urine Microscopic RBC 4/HPF Urine Microscopic WBC 31/HPF Urine Amorphous Crystals FEW/HPF Urine Bacteria FEW/HPF Urine Hemoglobin 1+mg/dL Urine Glucose NEGATIVEmg/dL Urine Total Protein NEGATIVEmg/dl Current Medications Medications (Trade) Dose Ordered Sig/Doris Route PRN Reason Start Time Stop Time Status Last Admin Dose Admin Lorazepam 1 mg 1 mg ONCE ONCE IM 04/04/17 06:30 04/04/17 06:31 DC 04/04/17 06:49 Ceftriaxone Sodium (Rocephin) 50 ml @ 100 mls/hr ONCE ONCE IVPB 04/04/17 08:30 04/04/17 08:59 DC 04/04/17 08:40 Procedures/MDM IV line was established patient was placed on cardiac cath tech rhythm strip revealed a sinus rhythm at about 80 bpm with upright P and T waves. Patient was afebrile. I administered 1 L normal saline intravenously for dehydration, urine analysis was positive for infection I treated her here with ceftriaxone 1 g IV. Patient also received lorazepam 1 mg intramuscular injection. Symptoms completely improved and vital signs are normal, blood pressure improved , oxygen saturation has been 100% on room air throughout her stay. I also order chest x-ray although patient refused. Differential diagnoses considered, included but not limited to acute coronary syndrome, pulmonary embolism, aortic dissection, abdominal aortic aneurysm, sepsis, stroke, meningitis, encephalitis, pneumonia, appendicitis, cholecystitis , bowel obstruction, pyelonephritis, nephrolithiasis, cystitis, as well as metabolic, hematologic, and electrolyte abnormalities. As well as abscess, cellulitis, fractures, and dislocations. Patient feels much better at this time, and vital signs are normal, symptoms have improved. I did give strict instructions to return to the ED if symptoms continue or worsen, patient will otherwise follow-up with primary care physician. Patient understood instructions and agreed to plan. Disclaimer: Inadvertent spelling and grammatical errors are likely due to EHR/ dictation software use and do not reflect on the overall quality of patient care. Also, please note that the electronic time recorded on this note does not necessarily reflect the actual time of the patient encounter. Departure Diagnosis: Primary Impression: Acute anxiety Additional Impressions: Insomnia Insomnia type: primary Qualified Code: F51.01 - Primary insomnia Acute UTI Condition: Good Patient Instructions: Anxiety Reaction, Bladder Infection, Female (Adult) LA LEHMAN MD Apr 04, 2017 09:18
== END 2017-04-04 10:20 | disposition home or self-care (01) ==
LOC: E/R 06:04
DX: F41.9 Anxiety disorder, unspecified (principal); F51.01 Primary insomnia; N39.0 Urinary tract infection, site not specified; I12.9 Hypertensive chronic kidney disease with stage 1 through stage 4 chronic kidney disease, or unspecified chronic kidney disease; N18.9 Chronic kidney disease, unspecified; E11.22 Type 2 diabetes mellitus with diabetic chronic kidney disease; Z98.61 Coronary angioplasty status; Z79.84 Long term (current) use of oral hypoglycemic drugs; Z79.82 Long term (current) use of aspirin
CPT/HCPCS: 81001; 96372; 96374; 99284; J0696; J2060

== ENCOUNTER 2017-05-06 11:53 | Inpatient (IN) | payer MEDICARE, OTHER ==
[~2017-05-06] VITALS: Ht 167.6 cm; Wt 66.0 kg
[~2017-05-06 11:53] MED LIST changes: -AMLO5TAB4 PO; +CIPR500T4 PO; +LORA-441 PO
[2017-05-06] MEDS ORDERED: IOHEXOL 100 ML ONE (12:39)
[2017-05-06] MEDS ORDERED: SOD CHLORIDE 0.9% 100 ML ONE (12:39)
--- NOTE | 2017-05-06 12:44 | RADRPT ---
PROCEDURE: Noncontrast CT Head. CLINICAL INDICATION: Code stroke. Acute neurologic deficit. TECHNIQUE: Noncontrast CT of the head was obtained. The administered radiation dose was CTDI vol = 44.93 mGy, DLP = 720.23 mGy-cm. One or more of the following dose reduction techniques were used: Au tomated exposure control, Adjustment of the mA and/or kV according to patient size, or Use of iterat jacinda reconstruction technique. COMPARISON: Noncontrast CT of the head from April 07, 2017 as well as noncontrast MRI brain from March 29, 2017. FINDINGS: There is minimal bilateral frontal predominant cerebral volume loss. There is a chronic left anterio r cerebral artery infarction with associated encephalomalacia and gliosis again noted. There is mild to moderate periventricular hypoattenuation suggesting chronic microvascular ischemic changes. There are extensive vascular calcifications within the intracranial carotid arteries. There is no loss of olivera-white differentiation to suggest acute territorial infarction. There is no acute intracranial hemorrhage. No midline shift is identified. The orbits are within normal limits. The paranasal sinuses are well aerated. No destructive osseous lesion is identified. IMPRESSION: 1. No loss of olivera-white differentiation to suggest acute territorial infarction. Consider CTA of t he head/neck or noncontrast MRI of the brain as clinically warranted. 2. No acute intracranial hemorrhage. 3. Chronic right anterior cerebral artery infarction. 4. Minimal frontal predominant cerebral volume loss. 5. Mild to moderate chronic microvascular ischemic changes. Further findings as detailed above. These findings were discussed with Ronn Mccabe on 05/06/2017 at 12:41 PM. RPTAT: PP .Lui Tovar MD, MD Date Time Electronically viewed and signed by .Lui Tovar MD, on 05/06/2017 12:44 .F/
[2017-05-06 12:51] LABS: BASOPHILS % 0.4 % (0.0-2.0); EOSINOPHILS # 0.1 10^3/ul (0.0-0.5); EOSINOPHILS % 1.3 % (0.0-7.0); HEMATOCRIT 44.1 % (37.0-47.0); HEMOGLOBIN 15.1 g/dl (12.0-16.0); LYMPHOCYTES # 3.3 10^3/ul (0.8-2.9); LYMPHOCYTES % 35.6 % (15.0-51.0); MEAN CORPUSCULAR HEMOGLOBIN 32.5 pg (29.0-33.0); MEAN CORPUSCULAR HGB CONC 34.2 g/dl (32.0-37.0); MEAN PLATELET VOLUME 8.9 fl (7.4-10.4); MONOCYTE # 0.5 10^3/ul (0.3-0.9); MONOCYTES % 5.6 % (0.0-11.0); NEUTROPHIL # 5.3 10^3/ul (1.6-7.5); NEUTROPHILS % 56.9 % (39.0-77.0); PLATELET COUNT 356 10^3/UL (140-415); RED BLOOD COUNT 4.64 10^6/ul (4.20-5.40); RED CELL DISTRIBUTION WIDTH 12.1 % (11.5-14.5); WHITE BLOOD COUNT 9.3 10^3/ul (4.8-10.8)
--- NOTE | 2017-05-06 13:07 | RADRPT ---
PROCEDURE: CTA Head and neck. CLINICAL INDICATION: Code stroke. Acute neurologic deficit. TECHNIQUE: CTA of the head and neck was obtained . Sagittal and coronal reformations and MIPs were provided. Images were obtained prior following the intravenous contrast administration of 115 cc of Omnipaque 350 contrast. The administered radiation dose was CTDI vol = 45.37, 15.34 mGy, DLP = 2.69 , 583.24 mGy-cm. Coronal and sagittal as well as maximal intensity projection reformations were obt ained. Direct measurements of vessel diameters was made in reference to measurements of the distal i nternal carotid artery diameter. One or more of the following dose reduction techniques were used: A utomated exposure control, Adjustment of the mA and/or kV according to patient size, or Use of itera tive reconstruction technique. COMPARISON: There are no similar studies submitted for comparison.Noncontrast CT of the head from e same day. FINDINGS: CTA neck: Aorta: Normal in caliber. There are moderate vascular calcifications and atheroma within the aortic arch. Right common carotid artery: There is mild long segment atheroma. Patent without evidence of stenosi s. Right internal carotid artery: There are extensive vascular calcifications within the right carotid bulb. This causes 60% stenosis by NASCET criteria. Right external carotid artery: Vascular calcifications causing mild to moderate right external carot id artery stenosis. Left common carotid artery: There is mild to moderate long segment atheroma. Patent without evidence of stenosis. Left internal carotid artery: There are extensive vascular calcifications within the left carotid bu lb. This causes 72% stenosis by NASCET criteria. Left external carotid artery: Patent without evidence of stenosis. V1/V2 vertebral arteries: Patent bilaterally without evidence of stenosis. Vertebral artery dominance: Right. CTA head: Carotid arteries: There are extensive vascular calcifications within the bilateral cavernous and sup raclinoid carotid arteries. This causes mild bilateral cavernous and mild to moderate bilateral supr aclinoid carotid artery stenosis. Anterior cerebral arteries: The right A1 segment is hypoplastic. There is occlusion of the right A2 anterior cerebral artery likely related to chronic right anterior cerebral artery infarction. There is severe multifocal stenosis of the left A2 anterior cerebral artery with contrast noted distally. Middle cerebral arteries: There is moderate multifocal left M2 middle cerebral artery stenosis. Ther e is mild multifocal right M2 middle cerebral artery stenosis. Posterior cerebral arteries: There is severe focal right P2 posterior cerebral artery stenosis. Ther e is moderate multifocal left P2 posterior cerebral artery stenosis. Anterior communicating artery: Present. Posterior communicating arteries: Not visualized bilaterally. Basilar artery: Patent without evidence of stenosis. V3/V4 Vertebral arteries: There are moderate to extensive vascular calcifications within the bilate ral V4 segments. This causes moderate bilateral V4 vertebral artery stenosis. Aneurysm: No aneurysm is identified. Venous sinuses: Patent. CT head with contrast: No significant change from recent noncontrast head CT given limitations of contrast. CT neck: There is no cervical adenopathy. There are moderate to severe degenerative changes within the cervic al spine. IMPRESSION: CTA Head 1. No arterial thrombus or vessel occlusion. 2. Severe multifocal stenosis of the left A2 anterior cerebral artery with contrast noted distally. 3. Occlusion of the right A2 anterior cerebral artery likely related to chronic right anterior cereb ral artery infarction. 4. Mild bilateral cavernous and mild to moderate bilateral supraclinoid carotid artery stenosis. 5. Severe focal right P2 posterior cerebral artery stenosis and moderate multifocal left P2 posterio r cerebral artery stenosis. 6. Multifocal moderate left and mild multifocal right M2 middle cerebral stenosis. 7. Moderate bilateral V4 vertebral artery stenosis. 8. No intracranial aneurysm. CTA Neck 1. 72% left internal carotid artery stenosis by NASCET criteria. 2. 60% right internal carotid artery stenosis by NASCET criteria. Further findings as detailed above. Critical findings were discussed with Ronn Mccabe on 05/06/2017 at 1:05 PM. RPTAT: PP .Lui Tovar MD, Date Time Electronically viewed and signed by .Lui Tovar MD, on 05/06/2017 13:07 .F/
--- NOTE | 2017-05-06 13:15 | RADRPT ---
PROCEDURE: XR 1 view Chest. CLINICAL INDICATION: Stroke. TECHNIQUE: Portable Single frontal view of the chest was obtained. COMPARISON: March 29, 2017. FINDINGS: The heart is normal in size. There are mild aortic calcifications. There is no focal consolidation. There is no pleural effusion. No pneumothorax is identified. The osseous structures are intact. There is right shoulder calcific tendinosis. IMPRESSION: No significant change. No evidence for acute cardiopulmonary disease. Aortic calcifications. Right shoulder calcific tendinosis. Further findings as detailed above. RPTAT: PP .Lui Tovar MD, Date Time Electronically viewed and signed by .Lui Tovar MD, on 05/06/2017 13:15 .F/
[2017-05-06 13:16] LABS: INR 0.94; PROTIME 12.6 Sec (12.2-14.2)
--- NOTE | 2017-05-06 13:16 | ERA ---
ER Documentation Chief Complaint Date/Time DATE: 05/06/17 TIME: 12:40 Chief Complaint altered level of consciousness unknown onset time HPI History is limited and is obtained entirely from paramedics and review of prior medical records as the patient is unable to cooperate due to clinical condition. 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 Awaiting arrival of family member as baseline mental status is unknown. Approximately 15 minutes prior to calling 911 family member noticed that she was not responsive. On arrival paramedics found the patient to be alert but not responding normally. Maria Luz stated that the patient was at her baseline prior to this incident. She had not been complaining of chest pain , palpitations, abdominal pain or headache. No recent URIs or febrile illnesses. Prehospital blood sugar was greater than 100 mg/dL. ROS Limited except as per HPI due to the patient's clinical condition. Medications Home Meds Active Scripts Ciprofloxacin Hcl* (Ciprofloxacin Hcl*) 500 Mg Tablet, 500 MG PO BID for 5 Days , TAB Prov:LA LEHMAN MD 04/04/17 Lorazepam* (Ativan*) 0.5 Mg Tablet, 0.5 MG PO Q8 for ANXIETY, #10 TAB Prov:LA LEHMAN MD 04/04/17 Reported Medications Levetiracetam* (Levetiracetam*) 500 Mg/5 Ml Solution, 500 MG PO BID, ML 03/28/17 Lorazepam* (Lorazepam*) 0.5 Mg Tablet, 0.5 MG PO Q8 Y for ANXIETY, TAB 03/28/17 Aspirin-Dipyridamole* (Aggrenox*) 25-200 Mg Cpmp.12hr, 1 CAP PO BID, CAP 03/28/17 Omeprazole* (Omeprazole*) 20 Mg Capsule.dr, 40 MG PO DAILY, #30 CAP 03/05/17 Latanoprost (Latanoprost) 2.5 Ml Drops, 1 DROP BOTH EYES QHS, #1 BOTTLE INSTILL 1 DROP DAILY INTO BOTH EYES IN THE EVENING 02/10/17 Metformin* (Glucophage*) 500 Mg Tab, 500 MG PO WITH LUNCH DINNER, #60 TAB 04/03/16 Losartan Potassium* (Losartan Potassium*) 50 Mg Tablet, 50 MG PO BID, TAB 03/13/15 Metoprolol Tartrate* (Lopressor*) 50 Mg Tab, 50 MG PO BID, TAB 03/13/15 Allergies Allergies: Coded Allergies: Penicillins (Unverified Allergy, Mild, 03/17/17) cortisone (Unverified Allergy, Mild, 03/17/17) prednisone (Unverified Allergy, Mild, 03/17/17) Sulfa (Sulfonamide Antibiotics) (Unverified Allergy, Unknown, 03/17/17) PMhx/Soc Reviewed in chart. As per HPI. This with family. History of Surgery: Yes (Cholecystectomy, appendectomy and skin cancer removal from face.) Anesthesia Reaction: No Hx Neurological Disorder: No Hx Respiratory Disorders: No Hx Cardiac Disorders: Yes (HTN, STENTS PLACEMENT OVER 10 YRS) Hx Psychiatric Problems: Yes Hx Miscellaneous Medical Probl: Yes (HTN, DM, GERD, CKD, CVA X 2) Hx Alcohol Use: No Hx Substance Use: No Hx Tobacco Use: No (Smoking more than 10 years ago) FmHx Father: Diabetes. Sibling: Colon cancer and diabetes. (as per medical records) Physical Exam Vitals Vital Signs Date Time Temp Pulse Resp B/P Pulse Ox O2 Delivery O2 Flow Rate FiO2 05/06/17 14:52 91 18 167/113 98 05/06/17 13:55 98.8 96 16 182/113 98 Room Air 05/06/17 12:19 97.9 73 18 135/93 99 Physical Exam Const: Alert, Oriented to name. Head: Atraumatic Eyes: Normal Conjunctiva. Pupils equal react to light. No gaze preference. ENT: Normal External Ears, Nose and Mouth. (+)Gag reflex. Membranes are moist. Neck: Nontender. Carotids 2+ bilaterally without bruits. No JVD. Resp: Clear to auscultation bilaterally Cardio: Regular rate and rhythm, no murmurs Abd: Soft, non tender, non distended. Normal bowel sounds no masses or abnormal pulsations. Skin: No petechiae or rashes Back: No midline or flank tenderness Ext: No cyanosis, or edema Neur: Awake and alert. Oriented to name and place. Follows commands slowly. No facial droop or slurred speech.. Motor strength right upper extremity/right lower extremity 5/5. His left upper and left lower extremity spontaneously but does not support against gravity. Result Diagram: 05/06/17 1215 05/06/17 1215 Results 24 hrs Laboratory Tests Test 05/06/17 12:00 05/06/17 12:15 05/06/17 13:00 Hemoglobin A1c 6.2% White Blood Count 9.310^3/ul Red Blood Count 4.6410^6/ul Hemoglobin 15.1g/dl Hematocrit 44.1% Mean Corpuscular Volume 95.0fl Mean Corpuscular Hemoglobin 32.5pg Mean Corpuscular Hemoglobin Concent 34.2g/dl Red Cell Distribution Width 12.1% Platelet Count 59261^3/UL Mean Platelet Volume 8.9fl Neutrophils % 56.9% Lymphocytes % 35.6% Monocytes % 5.6% Eosinophils % 1.3% Basophils % 0.4% Nucleated Red Blood Cells % 0.0/100WBC Neutrophils # 5.310^3/ul Lymphocytes # 3.310^3/ul Monocytes # 0.510^3/ul Eosinophils # 0.110^3/ul Basophils # 0.010^3/ul Nucleated Red Blood Cells # 0.010^3/ul Prothrombin Time 12.6Sec Prothrombin Time Ratio 1.0 INR International Normalized Ratio 0.94 Activated Partial Thromboplast Time 31.0Sec Sodium Level 141mmol/L Potassium Level 3.8mmol/L Chloride Level 102mmol/L Carbon Dioxide Level 29mmol/L Anion Gap 14 Blood Urea Nitrogen 15mg/dl Creatinine 0.60mg/dl Glucose Level 119mg/dl Calcium Level 10.3mg/dl Total Bilirubin 0.5mg/dl Direct Bilirubin 0.00mg/dl Indirect Bilirubin 0.5mg/dl Aspartate Amino Transf (AST/SGOT) 19IU/L Alanine Aminotransferase (ALT/SGPT) 35IU/L Alkaline Phosphatase 93IU/L Troponin I < 0.012ng/ml Total Protein 8.0g/dl Albumin 4.4g/dl Globulin 3.60g/dl Albumin/Globulin Ratio 1.22 Urine Color COLORLESS Urine Clarity CLEAR Urine pH 8.0 Urine Specific [place] 1.009 Urine Ketones NEGATIVEmg/dL Urine Nitrite NEGATIVEmg/dL Urine Bilirubin NEGATIVEmg/dL Urine Urobilinogen NEGATIVEmg/dL Urine Leukocyte Esterase NEGATIVELeu/ul Urine Hemoglobin NEGATIVEmg/dL Urine Glucose NEGATIVEmg/dL Urine Total Protein NEGATIVEmg/dl Urine Opiates Screen Negative Urine Barbiturates Negative Urine Amphetamines Screen Negative Urine Benzodiazepines Screen Negative Urine Cocaine Screen Negative Urine Cannabinoids Negative Current Medications Medications (Trade) Dose Ordered Sig/Doris Route PRN Reason Start Time Stop Time Status Last Admin Dose Admin IV Flush 10 ml 10 ml STK-MED ONCE .ROUTE 05/06/17 12:39 05/06/17 12:40 DC Sodium Chloride 100 ml @ ud STK-MED ONCE .ROUTE 05/06/17 12:39 05/06/17 12:40 DC 05/06/17 12:50 Iohexol 100 ml @ ud STK-MED ONCE .ROUTE 05/06/17 12:39 05/06/17 12:40 DC 05/06/17 12:50 Levetiracetam (Keppra 500 Mg/ 100ml (Pmx)) 100 ml @ 400 mls/hr ONCE ONCE IVPB 05/06/17 13:30 05/06/17 13:44 DC 05/06/17 13:29 Lorazepam (Ativan) 1 mg ONCE ONCE IV 05/06/17 13:30 05/06/17 13:31 DC 05/06/17 13:25 Lorazepam (Ativan) 1 mg ONCE ONCE IV 05/06/17 14:00 05/06/17 14:01 DC Aspirin (Aspirin) 300 mg ONCE ONCE [place] 05/06/17 14:00 05/06/17 14:01 DC 05/06/17 14:11 EKG: TIME: 12:07. Sinus rhythm. Ventricular rate 71. Normal [place] and QRS. Left axis deviation. Nonspecific T-wave changes. No acute ST segment elevation or depression. No ectopy. EP Interpretation: Abnormal EKG. IMAGING: [ ] Procedures/MDM DOCUMENTS REVIEWED: ED nurse, prior ED, prior records including admission 03/28 for stroke with TPA. MEDICAL DECISION MAKIN-year-old female with a history of diabetes mellitus type 2, hypertension, congestive heart failure, GERD, hyperlipidemia, CKD stage III and prior CVA 2 including 03/28/2017 PA presents to the ED via rescue ambulance for evaluation of altered mental status. Patient presents with acute onset of neurologic symptoms however incomplete data and family members have not yet arrived. CT consistent with prior study and reveals no evidence of hemorrhage or new infarct. CT angiogram of the brain and neck reveal no evidence of acute large vessel occlusion. Tele-neurology evaluation by Dr. Uriostegui. After consultation I agree that the patient does not meet criteria for thrombolytics or acute neuro interventional therapy. No evidence of cardiac dysrhythmia or acute coronary syndrome. Possible seizure and IV Keppra given. No criteria for systemic inflammatory response syndrome or signs of an occult infectious process. No hypoglycemia, hyponatremia or acute electrolyte abnormalities. Patient will be admitted to telemetry for further evaluation and management. Counseled family regarding diagnosis, diagnostic results and plan for admission. CALLS/CONSULTS: Time 12:42, Dr. Uriostegui, Tele-Neurology CALLS/CONSULTS: Time 12:36, Dr. Tovar, Radiology, CT reveals old CVA without evidence of acute bleed or stroke. CALLS/CONSULTS: Time 13:00, Dr. Uriostegui. Patient evaluated and not a candidate for TPA or acute neuro invasive intervention. Recommends admission and further workup including MRI. CALLS/CONSULTS: Time 13:40, Dr. Saxena. Recommends admission to telemetry CRITICAL CARE TIME: Due to the high probability of sudden clinically significant hemodynamic, cardiovascular and neurologic deterioration, this patient with acute onset of neurologic symptoms but does not meet criteria for TPA or acute invasive neuro interventional therapy required multiple, frequent reevaluations of vital signs and response to therapy. Additional critical care time was spent in interpretation of relevant clinical data including labs and neuroimaging studies, consultation with the neurologist Dr. Uriostegui and arranging for admission and ongoing care with Dr. Saxena. Family history significant for diabetes and colon cancer as documented above. TOTAL CRITICAL CARE TIME: 40 minutes not including other separately reportable procedures. PATIENT CARE TRANSITIONED: Time: 14:30, Dr. Saxena. Departure Diagnosis: Primary Impression: Altered level of consciousness Additional Impressions: CVA (cerebral vascular accident) Qualified Code: I63.9 - Cerebrovascular accident (CVA), unspecified mechanism Seizure disorder Diabetes mellitus type 2 in nonobese Condition: Serious SHANDA KLEIN MD May 06, 2017 12:50
[2017-05-06 13:21] LABS: ALANINE AMINOTRANSFERASE 35 IU/L (13-69); ALBUMIN 4.4 g/dl (3.3-4.9); ALBUMIN/GLOBULIN RATIO 1.22; ALKALINE PHOSPHATASE 93 IU/L (42-121); ANION GAP 14 (8-16); ASPARTATE AMINO TRANSFERASE 19 IU/L (15-46); BILIRUBIN,INDIRECT 0.5 mg/dl (0-1.1); BILIRUBIN,TOTAL 0.5 mg/dl (0.2-1.3); BLOOD UREA NITROGEN 15 mg/dl (7-20); CALCIUM 10.3 mg/dl (8.4-10.2); CARBON DIOXIDE 29 mmol/L (21-31); CHLORIDE 102 mmol/L (97-110); GLUCOSE 119 mg/dl (70-220); POTASSIUM 3.8 mmol/L (3.5-5.1); SODIUM 141 mmol/L (135-144)
[2017-05-06] MEDS ORDERED: LORAZEPAM 2 MG INJ IV ONE ×2 (13:30→14:00)
[2017-05-06] MEDS ORDERED: LEVETIRACETAM 500 MG (PMX) 100 ML IVPB ONE (13:30)
[2017-05-06 13:37] LABS: TROPONIN-I < 0.012 ng/ml (0.00-0.12)
[2017-05-06 13:53] LABS: ADD UMIC NO; UR ASCORBIC ACID NEGATIVE (NEGATIVE); UR BILIRUBIN (Dip) NEGATIVE (NEGATIVE); UR BLOOD (Dip) NEGATIVE (NEGATIVE); UR CLARITY CLEAR (CLEAR); UR COLOR COLORLESS (YELLOW); UR GLUCOSE (Dip) NEGATIVE (NEGATIVE); UR KETONES (Dip) NEGATIVE (NEGATIVE); UR LEUKOCYTE ESTERASE (Dip) NEGATIVE Leu/ul (NEGATIVE); UR NITRITE (Dip) NEGATIVE (NEGATIVE); UR SPECIFIC GRAVITY (Dip) 1.009 (1.003-1.030); UR TOTAL PROTEIN (Dip) NEGATIVE (NEGATIVE); UR UROBILINOGEN (Dip) NEGATIVE (NEGATIVE)
[2017-05-06] MEDS ORDERED: ASPIRIN 300 MG SUPP PR ONE (14:00)
[2017-05-06 14:06] LABS: BARBITURATES Negative (NEGATIVE); BENZODIAZEPINES Negative (NEGATIVE); CANNABINOIDS Negative (NEGATIVE); COCAINE Negative (NEGATIVE); OPIATES Negative (NEGATIVE)
[2017-05-06] MEDS ORDERED: ACETAMINOPHEN 325 MG TAB PO PRN ×2 (15:30→18:00)
[2017-05-06] MEDS ORDERED: ONDANSETRON 4 MG INJ IV PRN ×2 (15:30→18:00)
[2017-05-06] MEDS ORDERED: NACL 0.9% 3 ML SYG IV SCH (18:00)
[2017-05-06] MEDS ORDERED: GLUCOSE GEL 15 GRAM TUBE BUCCAL PRN (18:30)
[2017-05-06] MEDS ORDERED: GLUCAGON 1 MG INJ IM PRN (18:30)
[2017-05-06] MEDS ORDERED: DEXTROSE 50% 50 ML SYRINGE IV PRN ×2 (18:30)
[2017-05-06] MEDS ORDERED: GLUCOSE GEL 15 GRAM TUBE PO PRN ×2 (18:30)
[2017-05-06] MEDS: LATANOPROST 0.005% 2.5 ML OPH BOTH EYES SCH (21:00)
[2017-05-06] MEDS: LEVETIRACETAM IV 500 MG in SOD CHLORIDE 0.9% 100 ML IVPB SCH (21:00)
[2017-05-06] MEDS ORDERED: INSULIN ASPART [NOVOLOG] 3 ML PEN SC SCH ×3 (21:00)
[2017-05-06 23:00] VITALS: TEMP 98.6
[2017-05-06] MEDS ORDERED: LORAZEPAM 2 MG INJ ONE (23:01)
[2017-05-06 23:40] VITALS: BP 138/81; PULSE 103; RESP 18
[2017-05-06] MEDS: DEXTROSE 5%-0.45% NACL 1,000 ML IV SCH (23:53)
[2017-05-07] VITALS (13 sets, daily range): BP systolic 93–163; BP diastolic 50–72; PULSE 67–99; RESP 16–20; Ht 167.6 cm; Wt 66.0 kg
[2017-05-07] MEDS: LOSARTAN 50 MG TAB PO SCH ×2 (00:35→09:00)
[2017-05-07] MEDS: DIPYRIDAMOLE/ASPIRIN (SR) CAP PO SCH ×3 (00:35→21:45)
[2017-05-07] MEDS: METOPROLOL 50 MG TAB PO SCH ×2 (00:35→09:00)
[2017-05-07] MEDS: INSULIN ASPART [NOVOLOG] 3 ML PEN SC SCH ×7 (01:00→21:52)
[2017-05-07] MEDS: ACCU-CHEK XX SCH (01:48)
--- NOTE | 2017-05-07 02:15 | HP ---
DATE OF ADMISSION: 05/06/2017 REASON FOR ADMISSION: Altered level of consciousness. HISTORY OF PRESENT ILLNESS: This 72-year-old female was in her usual state of health until today at around 11:30. Her brother says that he went into her room after he heard some loud noises and nickun toi that the patient was unresponsive with her eyes wide open. The brother took her blood pressure wh ich was 198 systolic, paramedics were called and the patient was brought to the emergency room here at [facility]. The emergency room doctor, Dr. Ronn Parra, saw the patient and found the patient on arrival to be alert, but not responding normally. The patient's brother said that the patient became fully awake after she arrived here and seemed "normal." The patient now is unresponsive again. This is now 6:10 p.m. The patient is looking over to the left. She does not r espond to commands. She is breathing on her own. She does make some involuntary movements of her r ight arm and right lower leg. The patient is unable to give any history at this time. Apparently, the patient's blood sugar prior to hospitalization was 100 or more. The patient's brother says that she was not complaining of any pain or discomfort. He said that she seemed to be in her usual stat e of health until her mental status changed. The patient has been in the hospital and in the emerge ncy room, the last time was 04/04/2017. At that time, the patient was seen by Dr. Benavides. She w as complaining of some shortness of breath. She had no neurologic deficits at that time. Dr. Koki garcia thought the patient had an episode of acute anxiety and she was sent home. She was felt to hav e a urinary tract infection and was given a gram of ceftriaxone. The patient was also admitted here on 03/28/2017 for an episode of altered mental status. During that admission, the patient had a CT scan which only showed an old stroke, no new hemorrhage or new stroke. The patient was given tPA. The patient eventually woke up. She was responsive when I saw her. The patient did have a CTA of the head and neck. There was no evidence of acute stroke or vessel blockage. She had an MRI which showed no acute intracranial hemorrhage, infarct or mass. The patient was seen by neurologist, Dr. Santos. There was no decision by the neurologist as to what the altered mental status episode was due to. It was my impression that the patient had an episode of anxiety. She has been quite fi xated on having another stroke. The patient, at that time, was discharged on Keppra 500 mg twice a day, lorazepam 0.5 every 8 hours for anxiety, Tylenol as needed for pain, Aggrenox twice a day and o meprazole 40 mg a day. She has been at home under the care of her brother who is quite attentive. PAST MEDICAL HISTORY: Remarkable for type 2 diabetes mellitus, hypertension, congestive heart failu re, gastroesophageal reflux disease, hyperlipidemia, diabetic nephropathy, skin cancer, chronic kidn ey disease stage III, diabetic neuropathy and previous strokes x2. PAST SURGICAL HISTORY: Cholecystectomy in 2006, appendectomy, right ear surgery, skin cancer remove d from face and left ear. FAMILY HISTORY: Father is of diabetes. Mother of unknown causes, but was in her late 90s. She has siblings with cancer of the colon, TB and diabetes. SOCIAL HISTORY: The patient does not smoke. She is a former smoker. She has not smoked in more th an 10 years. She does not drink alcohol. ALLERGIES: 1. CODEINE. 2. ERYTHROMYCIN. 3. PENICILLIN. CURRENT MEDICATIONS: At home, include: 1. Aggrenox 1 twice a day. 2. Losartan 50 mg twice a day. 3. Metoprolol 50 mg twice a day. 4. Keppra 500 mg twice a day. 5. Lorazepam 0.5 mg p.r.n. anxiety. 6. Latanoprost eye drops 1 in each eye at bedtime. 7. Omeprazole 20 mg a day. 8. Metformin 500 mg with lunch and dinner. PHYSICAL EXAMINATION: GENERAL: At this time, reveals a thin, frail female who is unresponsive. She does open her eyes an d is looking off to the left. She does not follow simple commands. VITAL SIGNS: Blood pressure has been fluctuating, but her last blood pressure here was 150/80, puls e of 96, respirations 18, 99% on room air. HEAD: Normocephalic. No signs of head trauma. EYES: Deviated to the left. NOSE AND MOUTH: Normal. NECK: Supple. No neck vein distention. LUNGS: Clear to auscultation. HEART: Regular rhythm. No murmurs, gallops or rubs. ABDOMEN: Soft, nontender. EXTREMITIES: The feet are cold. There are decreased pedal pulses bilaterally. NEUROLOGIC: She is not following commands. She does move her right arm and right leg spontaneously , but not to commands. IMAGING: CAT scan of the brain done in the emergency room shows no loss of olivera-white differentiati on to suggest acute territorial infarct, no acute intracranial hemorrhage, chronic right anterior ce rebral artery infarction, minimal frontal predominant cerebral volume loss, mild to moderate chronic microvascular disease. A brain and neck CTA were done and CTA of the head, no arterial thrombus or vessel occlusion, several multifocal stenoses of the left A2 anterior cerebral artery with contrast noted distally, occlusion of the right A2 anterior cerebral artery, likely related to chronic right anterior cerebral artery infarction. No intracranial aneurysm. A CTA of the neck, 70% left consultant internship al carotid artery stenosis, 60% right internal carotid artery stenosis. IMPRESSION: 1. Altered level of consciousness. This patient has altered level of consciousness which has been changing today. She had an initial episode of unresponsiveness. Then, according to her brother, sh e woke up and was normal. She now has another episode of being unresponsive. The patient's brother denies any witnessed seizure activity. She has been taking Keppra at home as an anti-seizure medic ation, although she has not definitely had any known seizures. She has been evaluated by neurologis t several times in the past. Her CAT scan of the brain does not show any acute cerebrovascular acci dent. She does have an old cerebrovascular accident. 2. Hypertension. Her blood pressure has been labile. 3. Type 2 diabetes mellitus. 4. Generalized anxiety disorder. 5. History of urinary tract infections. PLAN: 1. Admit to telemetry floor. 2. Neurology consultation. 3. IV Keppra. 4. Insulin sliding scale to correct elevated blood sugars. 5. Speech therapy, physical therapy. Dictated By: ILAN CASTELAN MD, ND/RY Conf#: [id number] DID#: [id number]
[2017-05-07] MEDS: PANTOPRAZOLE (EC) 40 MG TAB PO SCH (06:00)
[2017-05-07] MEDS: DEXTROSE 5%-0.45% NACL 1,000 ML IV SCH ×2 (06:26→10:58)
[2017-05-07] MEDS: ENOXAPARIN 40 MG/0.4 ML SYG SC SCH (09:08)
[2017-05-07] MEDS: LEVETIRACETAM IV 500 MG in SOD CHLORIDE 0.9% 100 ML IVPB SCH ×2 (09:13→21:49)
--- NOTE | 2017-05-07 11:18 | PN ---
Date/Time of Note Date/Time of Note DATE: 05/07/17 TIME: 11:12 Assessment/Plan VTE Prophylaxis VTE Prophylaxis Intervention: LMWH Lines/Catheters IV [facility] Peripheral IV Assessment/Plan Chief Complaint/Hosp Course 1. Altered level of consciousness with left-sided weakness. Rule out seizures , possible TIA, history of anxiety disorder. The patient will be having a neurology consultation today. She will also have a speech therapy evaluation for swallowing. 2. Hypertension 3. Type 2 diabetes mellitus Problems: Subjective 24 Hr Interval Summary Free Text/Dictation The patient is more awake today ; however , she is not talking and is not moving her left arm or left leg. Subjective hx not possible: pt non-verbal Exam/Review of Systems Vital Signs Vitals Vital Signs Date Time Temp Pulse Resp B/P Pulse Ox O2 Delivery O2 Flow Rate FiO2 05/07/17 10:57 97.8 55 18 106/54 95 05/06/17 23:40 Room Air Intake and Output 05/06/17 05/06/17 05/07/17 15:00 23:00 07:00 Intake Total 440 ml Balance 440 ml Exam Constitutional: frail, non-verbal Respiratory: clear to auscultation, diminished breath sounds Cardiovascular: regular rate and rhythm Gastrointestinal: soft Musculoskeletal: nl extremities to inspection Neurological: lethargic Results Result Diagram: 05/06/17 1215 05/06/17 1215 Results 24 hrs Laboratory Tests Test 05/06/17 12:00 05/06/17 12:15 05/06/17 13:00 05/06/17 19:01 Hemoglobin A1c 6.2 H White Blood Count 9.3 Red Blood Count 4.64 # Hemoglobin 15.1 # Hematocrit 44.1 # Mean Corpuscular Volume 95.0 Mean Corpuscular Hemoglobin 32.5 Mean Corpuscular Hemoglobin Concent 34.2 Red Cell Distribution Width 12.1 Platelet Count 356 # Mean Platelet Volume 8.9 Neutrophils % 56.9 Lymphocytes % 35.6 Monocytes % 5.6 Eosinophils % 1.3 Basophils % 0.4 Nucleated Red Blood Cells % 0.0 Neutrophils # 5.3 Lymphocytes # 3.3 H Monocytes # 0.5 Eosinophils # 0.1 Basophils # 0.0 Nucleated Red Blood Cells # 0.0 Prothrombin Time 12.6 Prothrombin Time Ratio 1.0 INR International Normalized Ratio 0.94 Activated Partial Thromboplast Time 31.0 Sodium Level 141 Potassium Level 3.8 Chloride Level 102 Carbon Dioxide Level 29 Anion Gap 14 Blood Urea Nitrogen 15 Creatinine 0.60 Glucose Level 119 Calcium Level 10.3 H Total Bilirubin 0.5 Direct Bilirubin 0.00 Indirect Bilirubin 0.5 Aspartate Amino Transf (AST/SGOT) 19 Alanine Aminotransferase (ALT/SGPT) 35 Alkaline Phosphatase 93 Troponin I < 0.012 Total Protein 8.0 Albumin 4.4 Globulin 3.60 H Albumin/Globulin Ratio 1.22 Urine Color COLORLESS Urine Clarity CLEAR Urine pH 8.0 Urine Specific [place] 1.009 Urine Ketones NEGATIVE Urine Nitrite NEGATIVE Urine Bilirubin NEGATIVE Urine Urobilinogen NEGATIVE Urine Leukocyte Esterase NEGATIVE Urine Hemoglobin NEGATIVE Urine Glucose NEGATIVE Urine Total Protein NEGATIVE Urine Opiates Screen Negative Urine Barbiturates Negative Urine Amphetamines Screen Negative Urine Benzodiazepines Screen Negative Urine Cocaine Screen Negative Urine Cannabinoids Negative Bedside Glucose 164 Test 05/07/17 00:22 05/07/17 01:34 05/07/17 05:19 05/07/17 09:00 Bedside Glucose 160 160 172 168 Medications Medications Current Medications Dextrose/Sodium Chloride (D5-1/2ns) 1,000 ml @ 80 mls/hr [id number] IV Last administered on 05/07/17 10:58; Admin Dose 80 MLS/HR; Start 05/06/17 at 17:56 Ondansetron HCl (Zofran Inj) 4 mg Q6H PRN IV NAUSEA AND/OR VOMITING; Start at 18:00 Acetaminophen (Tylenol Tab) 650 mg Q6H PRN PO PAIN LEVEL 1-3 OR FEVER; Start 05/06/17 at 18:00 Enoxaparin Sodium (Lovenox) 40 mg DAILY SC Last administered on 05/07/17 09: 08; Admin Dose 40 MG; Start 05/07/17 at 09:00 Dipyridamole/ Aspirin (Aggrenox) 1 cap BID PO ; Start 05/06/17 at 21:00 Latanoprost (Xalatan) 1 drop QHS BOTH EYES Last administered on 05/06/17 21: 00; Admin Dose 1 DROP; Start 05/06/17 at 21:00 Losartan Potassium (Cozaar) 50 mg BID PO ; Start 05/06/17 at 21:00 Metoprolol Tartrate (Lopressor) 50 mg BID PO ; Start 05/06/17 at 21:00 Pantoprazole 40 mg 40 mg DAILY@06 PO ; Start 05/07/17 at 06:00 Levetiracetam/ Sodium Chloride (Keppra Iv/NS) 105 ml @ 430 mls/hr Q12 IVPB Last administered on 05/07/17 09:13; Admin Dose 430 MLS/HR; Start 05/06/17 at 21:00 Diagnostic Test (Pha) (Accu-Chek) 1 ea 02 XX ; Start 05/07/17 at 02:00 Insulin Aspart (Novolog Insulin Pen) NOVOLOG *MILD* ALGORI... Q4 SC Last administered on 05/07/17 09:07; Admin Dose 1 UNIT; Start 05/06/17 at 21:00 Miscellaneous Information 1 ea NOTE XX ; Start 05/06/17 at 18:30 Glucose (Glutose) 15 gm Q15M PRN PO DECREASED GLUCOSE; Start 05/06/17 at 18:30 Glucose (Glutose) 22.5 gm Q15M PRN PO DECREASED GLUCOSE; Start 05/06/17 at 18: 30 Dextrose (D50w Syringe) 25 ml Q15M PRN IV DECREASED GLUCOSE; Start 05/06/17 at 18:30 Dextrose (D50w Syringe) 50 ml Q15M PRN IV DECREASED GLUCOSE; Start 05/06/17 at 18:30 Glucagon (Glucagen) 1 mg Q15M PRN IM DECREASED GLUCOSE; Start 05/06/17 at 18: 30 Glucose (Glutose) 15 gm Q15M PRN BUCCAL DECREASED GLUCOSE; Start 05/06/17 at 18:30 Lorazepam (Ativan) 0.5 mg Q4 PRN IV AGITATION; Start 05/06/17 at 23:00 ILAN CASTELAN MD May 07, 2017 11:18
[2017-05-07] MEDS: LATANOPROST 0.005% 2.5 ML OPH BOTH EYES SCH (21:50)
[2017-05-08] VITALS (13 sets, daily range): BP systolic 130–168; BP diastolic 58–78; PULSE 50–74; RESP 16–20
[2017-05-08] MEDS: METOPROLOL 50 MG TAB PO SCH ×3 (00:13→20:41)
[2017-05-08] MEDS: LOSARTAN 50 MG TAB PO SCH ×3 (00:13→20:42)
[2017-05-08] MEDS: DEXTROSE 5%-0.45% NACL 1,000 ML IV SCH (00:59)
[2017-05-08] MEDS: LORAZEPAM 2 MG INJ IV PRN ×2 (01:43→17:19)
[2017-05-08] MEDS: INSULIN ASPART [NOVOLOG] 3 ML PEN SC SCH ×5 (01:56→21:02)
[2017-05-08] MEDS: ACCU-CHEK XX SCH (01:59)
[2017-05-08] MEDS: PANTOPRAZOLE (EC) 40 MG TAB PO SCH (06:28)
[2017-05-08] MEDS ORDERED: LEVETIRACETAM 500 MG (PMX) 100 ML IVPB SCH (09:00)
--- NOTE | 2017-05-08 09:00 | PN ---
Date/Time of Note Date/Time of Note DATE: 05/08/17 TIME: 08:48 Assessment/Plan VTE Prophylaxis VTE Prophylaxis Intervention: LMWH Lines/Catheters IV C[facility]ter Type (from [facility]): Peripheral IV Urinary Cath still in place: No Assessment/Plan Chief Complaint/Hosp Course 1. Altered level of consciousness with left-sided weakness. The left sided weakness has resolved. She is now back to her baseline neurologic status and mental status. Rule out seizures, possible TIA, history of anxiety disorder. The patient will be having a neurology consultation today. 2. Hypertension 3. Type 2 diabetes mellitus 4. Hyperlipidemia , the patient is on a statin drug. She is now neurologically improved. This is a similar pattern that she has had in the past. She has episodes of altered level of consciousness and then goes back to her normal baseline mental status. The etiology of this is unclear. She will be seen by a neurologist today. We will continue current Keppra intravenously. Problems: Subjective 24 Hr Interval Summary Free Text/Dictation She is awake and responsive today. She follows commands. She is talking. She passed her swallowing study. She is now on a soft diet. Constitutional: no complaints Cardiovascular: no complaints Gastrointestinal: no complaints Genitourinary: no complaints Musculoskeletal: no complaints Neurologic: other Exam/Review of Systems Vital Signs Vitals Vital Signs Date Time Temp Pulse Resp B/P Pulse Ox O2 Delivery O2 Flow Rate FiO2 05/08/17 08:07 56 05/08/17 07:41 98.0 17 130/74 99 05/08/17 05:40 Room Air Intake and Output 05/07/17 05/07/17 05/08/17 15:00 23:00 07:00 Intake Total 105 ml 105 ml Balance 105 ml 105 ml Exam Constitutional: alert, oriented Respiratory: clear to auscultation Cardiovascular: regular rate and rhythm Gastrointestinal: soft Musculoskeletal: nl extremities to inspection Neurological: [employer] II-XII intact, nl mental status, nl speech, nl strength Results Result Diagram: 05/06/17 1215 05/06/17 1215 Results 24 hrs Laboratory Tests Test 05/07/17 09:00 05/07/17 13:07 05/07/17 18:04 05/07/17 21:41 Bedside Glucose 168 184 146 159 Test 05/08/17 01:28 05/08/17 05:38 Bedside Glucose 150 131 Medications Medications Current Medications Dextrose/Sodium Chloride (D5-1/2ns) 1,000 ml @ 80 mls/hr [id number] IV Last administered on 05/07/17 10:58; Admin Dose 80 MLS/HR; Start 05/06/17 at 17:56 Ondansetron HCl (Zofran Inj) 4 mg Q6H PRN IV NAUSEA AND/OR VOMITING; Start at 18:00 Acetaminophen (Tylenol Tab) 650 mg Q6H PRN PO PAIN LEVEL 1-3 OR FEVER; Start 05/06/17 at 18:00 Enoxaparin Sodium (Lovenox) 40 mg DAILY SC Last administered on 05/07/17 09: 08; Admin Dose 40 MG; Start 05/07/17 at 09:00 Dipyridamole/ Aspirin (Aggrenox) 1 cap BID PO Last administered on 05/07/17 21:45; Admin Dose 1 CAP; Start 05/06/17 at 21:00 Latanoprost (Xalatan) 1 drop QHS BOTH EYES Last administered on 05/07/17 21: 50; Admin Dose 1 DROP; Start 05/06/17 at 21:00 Losartan Potassium (Cozaar) 50 mg BID PO Last administered on 05/08/17 00:13 ; Admin Dose 50 MG; Start 05/06/17 at 21:00 Metoprolol Tartrate (Lopressor) 50 mg BID PO Last administered on 05/08/17 00 :13; Admin Dose 50 MG; Start 05/06/17 at 21:00 Pantoprazole (Protonix Tab) 40 mg DAILY@06 PO Last administered on 05/08/17 06:28; Admin Dose 40 MG; Start 05/07/17 at 06:00 Diagnostic Test (Pha) (Accu-Chek) 1 ea 02 XX ; Start 05/07/17 at 02:00 Insulin Aspart (Novolog Insulin Pen) NOVOLOG *MILD* ALGORI... Q4 SC Last administered on 05/08/17 01:56; Admin Dose 1 UNIT; Start 05/06/17 at 21:00 Miscellaneous Information 1 ea NOTE XX ; Start 05/06/17 at 18:30 Glucose (Glutose) 15 gm Q15M PRN PO DECREASED GLUCOSE; Start 05/06/17 at 18:30 Glucose (Glutose) 22.5 gm Q15M PRN PO DECREASED GLUCOSE; Start 05/06/17 at 18: 30 Dextrose (D50w Syringe) 25 ml Q15M PRN IV DECREASED GLUCOSE; Start 05/06/17 at 18:30 Dextrose (D50w Syringe) 50 ml Q15M PRN IV DECREASED GLUCOSE; Start 05/06/17 at 18:30 Glucagon (Glucagen) 1 mg Q15M PRN IM DECREASED GLUCOSE; Start 05/06/17 at 18: 30 Glucose (Glutose) 15 gm Q15M PRN BUCCAL DECREASED GLUCOSE; Start 05/06/17 at 18:30 Lorazepam 0.5 mg 0.5 mg Q4 PRN IV AGITATION Last administered on 05/08/17t 01: 43; Admin Dose 0.5 MG; Start 05/06/17 at 23:00 Levetiracetam (Keppra 500 Mg/ 100ml (Pmx)) 100 ml @ 400 mls/hr Q12 IVPB ; Start 05/08/17 at 09:00 ILAN CASTELAN MD May 08, 2017 09:00
[2017-05-08] MEDS: DIPYRIDAMOLE/ASPIRIN (SR) CAP PO SCH ×2 (09:14→20:41)
[2017-05-08] MEDS: ENOXAPARIN 40 MG/0.4 ML SYG SC SCH (09:55)
--- NOTE | 2017-05-08 11:29 | CONS ---
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 On recent admission she was also seen for AMS, given tPA no CVA detected on further imaging. This past Sunday her brother who is her brand manager witnessed her having an episode that she appeared catatonic and more altered than usual lasted about 10 mins, BP elevated up to 198 systolic, no seizure activity tongue biting/urinary incontinence described. CTH no loss of olivera-white differentiation to suggest an acute infarction. No ICH , chronic right SOPHIA infarct. Constitutional: no complaints Cardiovascular: no complaints Gastrointestinal: no complaints Genitourinary: no complaints Musculoskeletal: no complaints Neurologic: other Past Medical History per HPI Social History Smoking Status: Former smoker Exam/Review of Systems Vital Signs Vitals Vital Signs Date Time Temp Pulse Resp B/P Pulse Ox O2 Delivery O2 Flow Rate FiO2 05/08/17 08:07 56 05/08/17 07:41 98.0 17 130/74 99 05/08/17 05:40 Room Air Intake and Output 05/07/17 05/07/17 05/08/17 15:00 23:00 07:00 Intake Total 105 ml 105 ml Balance 105 ml 105 ml Exam awake alert oriented x2 follows command w repeat stimulation answers 1-2 words in response CN: LAUREN, blinks to threat appropriate no facial asymmetry palate upgoing uvula midline scm/trap intact Motor: right UE 5/5 RLE 5/5 LUE 4-/5 LLE 4-/5 Reflexes brisk on left 3+ Tremors present on left action Results Result Diagram: 05/06/17 1215 05/06/17 1215 Results 24 hrs Laboratory Tests Test 05/07/17 13:07 05/07/17 18:04 05/07/17 21:41 05/08/17 01:28 Bedside Glucose 184 146 159 150 Test 05/08/17 05:38 05/08/17 08:49 Bedside Glucose 131 140 Medications Medications Current Medications Ondansetron HCl (Zofran Inj) 4 mg Q6H PRN IV NAUSEA AND/OR VOMITING; Start at 18:00 Acetaminophen (Tylenol Tab) 650 mg Q6H PRN PO PAIN LEVEL 1-3 OR FEVER; Start 05/06/17 at 18:00 Enoxaparin Sodium (Lovenox) 40 mg DAILY SC Last administered on 05/08/17 09: 55; Admin Dose 40 MG; Start 05/07/17 at 09:00 Dipyridamole/ Aspirin (Aggrenox) 1 cap BID PO Last administered on 05/08/17 09:14; Admin Dose 1 CAP; Start 05/06/17 at 21:00 Latanoprost (Xalatan) 1 drop QHS BOTH EYES Last administered on 05/07/17 21: 50; Admin Dose 1 DROP; Start 05/06/17 at 21:00 Losartan Potassium (Cozaar) 50 mg BID PO Last administered on 05/08/17 09:14 ; Admin Dose 50 MG; Start 05/06/17 at 21:00 Metoprolol Tartrate (Lopressor) 50 mg BID PO Last administered on 05/08/17 09 :52; Admin Dose 50 MG; Start 05/06/17 at 21:00 Pantoprazole (Protonix Tab) 40 mg DAILY@06 PO Last administered on 05/08/17 06:28; Admin Dose 40 MG; Start 05/07/17 at 06:00 Diagnostic Test (Pha) (Accu-Chek) 1 ea 02 XX ; Start 05/07/17 at 02:00 Miscellaneous Information 1 ea NOTE XX ; Start 05/06/17 at 18:30 Glucose (Glutose) 15 gm Q15M PRN PO DECREASED GLUCOSE; Start 05/06/17 at 18:30 Glucose (Glutose) 22.5 gm Q15M PRN PO DECREASED GLUCOSE; Start 05/06/17 at 18: 30 Dextrose (D50w Syringe) 25 ml Q15M PRN IV DECREASED GLUCOSE; Start 05/06/17 at 18:30 Dextrose (D50w Syringe) 50 ml Q15M PRN IV DECREASED GLUCOSE; Start 05/06/17 at 18:30 Glucagon (Glucagen) 1 mg Q15M PRN IM DECREASED GLUCOSE; Start 05/06/17 at 18: 30 Glucose (Glutose) 15 gm Q15M PRN BUCCAL DECREASED GLUCOSE; Start 05/06/17 at 18:30 Lorazepam 0.5 mg 0.5 mg Q4 PRN IV AGITATION Last administered on 05/08/17 01: 43; Admin Dose 0.5 MG; Start 05/06/17 at 23:00 Levetiracetam (Keppra 500 Mg/ 100ml (Pmx)) 100 ml @ 400 mls/hr Q12 IVPB Last administered on 05/08/17 09:20; Admin Dose 400 MLS/HR; Start 05/08/17 at 09: 00 HAYES LEON MD May 08, 2017 11:25
[2017-05-08] MEDS: LEVETIRACETAM IV 750 MG in SOD CHLORIDE 0.9% 100 ML IVPB SCH ×2 (15:27→20:42)
[2017-05-08] MEDS: LATANOPROST 0.005% 2.5 ML OPH BOTH EYES SCH (20:43)
--- NOTE | 2017-05-08 20:55 | RADRPT ---
PROCEDURE: MR Brain. CLINICAL INDICATION: Altered level of consciousness with weakness TECHNIQUE: An MRI of the brain was performed utilizing the following sequences: Sagittal and axia l T1 weighted, axial T2 weighted, axial FLAIR, coronal GRE, axial diffusion weighted (EPI technique [id number]), axial ADC mapping. The images were reviewed on a high-resolution PACS workstation. COMPARISON: CT brain from 05/06/2017 FINDINGS: MRI BRAIN: No diffusion weighted abnormalities are seen to suggest the presence of acute ischemia or recent inf arct. No susceptibility abnormality is seen. There is no intracranial hemorrhage, mass effect, or midline shift. No extra-axial fluid collection is seen. Mild diffuse cerebral volume loss is seen. Moderate amount of scattered nonspecific white matter disease in the periventricular and deep whit e matter is seen as well as the sammy. A chronic infarct in the right anterior cerebral artery territ ory is once again seen with surrounding gliosis. Focal volume loss in the body of the corpus callosu m is seen likely secondary to the right anterior cerebral artery territory infarct. Normal flow void s are visible the proximal intracranial arteries and dural sinuses, indicating patency. A retention cyst in the right maxillary sinus is seen. The remaining visualized paranasal sinuses are clear. Th e mastoid air cells, orbits, and calvarium are unremarkable. IMPRESSION: 1. No acute intracranial pathology. 2. Mild volume loss with moderate chronic microvascular ischemic changes. 3. Chronic right anterior cerebral artery territory infarct again seen. RPTAT: HPNM Physician Jesenia Date Time Electronically viewed and signed by Physician Jesenia on 05/08/2017 20:55 /
[2017-05-09] VITALS (11 sets, daily range): BP systolic 120–163; BP diastolic 56–69; PULSE 60–67; RESP 16–66
[2017-05-09] MEDS: ACCU-CHEK XX SCH (02:26)
[2017-05-09] MEDS: PANTOPRAZOLE (EC) 40 MG TAB PO SCH (06:11)
[2017-05-09 08:20] LABS: BASOPHILS % 0.3 % (0.0-2.0); EOSINOPHILS # 0.2 10^3/ul (0.0-0.5); EOSINOPHILS % 1.6 % (0.0-7.0); HEMATOCRIT 39.2 % (37.0-47.0); HEMOGLOBIN 12.8 g/dl (12.0-16.0); LYMPHOCYTES # 3.2 10^3/ul (0.8-2.9); LYMPHOCYTES % 32.3 % (15.0-51.0); MEAN CORPUSCULAR HEMOGLOBIN 31.5 pg (29.0-33.0); MEAN CORPUSCULAR HGB CONC 32.7 g/dl (32.0-37.0); MEAN CORPUSCULAR VOLUME 96.6 fl (82.0-101.0); MEAN PLATELET VOLUME 9.5 fl (7.4-10.4); MONOCYTE # 0.8 10^3/ul (0.3-0.9); MONOCYTES % 7.9 % (0.0-11.0); NEUTROPHIL # 5.7 10^3/ul (1.6-7.5); NEUTROPHILS % 57.6 % (39.0-77.0); PLATELET COUNT 269 10^3/UL (140-415); RED BLOOD COUNT 4.06 10^6/ul (4.20-5.40); RED CELL DISTRIBUTION WIDTH 12.4 % (11.5-14.5); WHITE BLOOD COUNT 9.8 10^3/ul (4.8-10.8)
[2017-05-09 08:49] LABS: ALBUMIN 3.1 g/dl (3.3-4.9); ALBUMIN/GLOBULIN RATIO 0.96; BILIRUBIN,INDIRECT 0.2 mg/dl (0-1.1); BILIRUBIN,TOTAL 0.2 mg/dl (0.2-1.3); CALCIUM 9.3 mg/dl (8.4-10.2); CREATININE 0.56 mg/dl (0.44-1.00); POTASSIUM 3.8 mmol/L (3.5-5.1); TOTAL PROTEIN 6.3 g/dl (6.1-8.1)
[2017-05-09] MEDS: METOPROLOL 50 MG TAB PO SCH ×2 (08:50→21:55)
[2017-05-09] MEDS: LOSARTAN 50 MG TAB PO SCH ×2 (08:50→21:55)
[2017-05-09] MEDS: DIPYRIDAMOLE/ASPIRIN (SR) CAP PO SCH ×2 (08:50→21:55)
[2017-05-09] MEDS: INSULIN ASPART [NOVOLOG] 3 ML PEN SC SCH ×4 (08:58→20:35)
[2017-05-09] MEDS: ENOXAPARIN 40 MG/0.4 ML SYG SC SCH (08:58)
[2017-05-09] MEDS: LEVETIRACETAM IV 750 MG in SOD CHLORIDE 0.9% 100 ML IVPB SCH (09:00)
--- NOTE | 2017-05-09 10:30 | PN ---
Date/Time of Note Date/Time of Note DATE: 05/09/17 TIME: 10:26 Assessment/Plan VTE Prophylaxis VTE Prophylaxis Intervention: LMWH Lines/Catheters [facility] Peripheral IV Urinary Cath still in place: No Assessment/Plan Chief Complaint/Hosp Course 1. Altered level of consciousness with left-sided weakness. The left sided weakness has resolved. She is now back to her baseline neurologic status and mental status. Rule out seizures, possible TIA, history of anxiety disorder. She was seen by neurology and her Keppra dose was increased to 750 mg twice a day. She is overall improved. Probably back to her baseline mental and neurologic status. Her brother is in the room with her and he agrees. I will transfer her to a nonmonitored floor today. 2. Hypertension 3. Type 2 diabetes mellitus 4. Hyperlipidemia , the patient is on a statin drug. Problems: Subjective 24 Hr Interval Summary Free Text/Dictation She is awake responsive and fully oriented today. She has no new complaints. Her brother is in the room with her. Constitutional: improved, no complaints Cardiovascular: no complaints Gastrointestinal: no complaints Genitourinary: no complaints Musculoskeletal: no complaints Neurologic: focal-weakness Exam/Review of Systems Vital Signs Vitals Vital Signs Date Time Temp Pulse Resp B/P Pulse Ox O2 Delivery O2 Flow Rate FiO2 05/09/17 08:46 67 05/09/17 07:57 98.0 18 163/69 97 05/08/17 05:40 Room Air Intake and Output 05/08/17 05/08/17 05/09/17 15:00 23:00 07:00 Intake Total 900 ml 1015.0 ml 550 ml Balance 900 ml 1015.0 ml 550 ml Exam Constitutional: alert, frail, oriented Neck: non-tender, supple Respiratory: clear to auscultation, normal air movement Cardiovascular: regular rate and rhythm Gastrointestinal: non-tender, soft Musculoskeletal: nl extremities to inspection Neurological: focal weakness Results Result Diagram: 05/09/17 0724 05/09/17 0724 Results 24 hrs Laboratory Tests Test 05/08/17 12:04 05/08/17 17:33 05/08/17 19:04 05/08/17 20:39 Bedside Glucose 145 226 H 182 145 Test 05/09/17 02:09 05/09/17 07:24 05/09/17 08:02 Bedside Glucose 184 218 White Blood Count 9.8 Red Blood Count 4.06 L Hemoglobin 12.8 Hematocrit 39.2 Mean Corpuscular Volume 96.6 Mean Corpuscular Hemoglobin 31.5 Mean Corpuscular Hemoglobin Concent 32.7 Red Cell Distribution Width 12.4 Platelet Count 269 # Mean Platelet Volume 9.5 Neutrophils % 57.6 Lymphocytes % 32.3 Monocytes % 7.9 Eosinophils % 1.6 Basophils % 0.3 Nucleated Red Blood Cells % 0.0 Neutrophils # 5.7 Lymphocytes # 3.2 H Monocytes # 0.8 Eosinophils # 0.2 Basophils # 0.0 Nucleated Red Blood Cells # 0.0 Sodium Level 141 Potassium Level 3.8 Chloride Level 109 Carbon Dioxide Level 25 Anion Gap 11 Blood Urea Nitrogen 20 Creatinine 0.56 Glucose Level 184 Calcium Level 9.3 Total Bilirubin 0.2 Direct Bilirubin 0.00 Indirect Bilirubin 0.2 Aspartate Amino Transf (AST/SGOT) 18 Alanine Aminotransferase (ALT/SGPT) 27 Alkaline Phosphatase 67 Total Protein 6.3 Albumin 3.1 L Globulin 3.20 Albumin/Globulin Ratio 0.96 Medications Medications Current Medications Ondansetron HCl (Zofran Inj) 4 mg Q6H PRN IV NAUSEA AND/OR VOMITING; Start at 18:00 Acetaminophen (Tylenol Tab) 650 mg Q6H PRN PO PAIN LEVEL 1-3 OR FEVER; Start 05/06/17 at 18:00 Enoxaparin Sodium (Lovenox) 40 mg DAILY SC Last administered on 05/09/17 08: 58; Admin Dose 40 MG; Start 05/07/17 at 09:00 Dipyridamole/ Aspirin (Aggrenox) 1 cap BID PO Last administered on 05/09/17 08:50; Admin Dose 1 CAP; Start 05/06/17 at 21:00 Latanoprost (Xalatan) 1 drop QHS BOTH EYES Last administered on 05/08/17 20: 43; Admin Dose 1 DROP; Start 05/06/17 at 21:00 Losartan Potassium (Cozaar) 50 mg BID PO Last administered on 05/09/17 08:50 ; Admin Dose 50 MG; Start 05/06/17 at 21:00 Metoprolol Tartrate (Lopressor) 50 mg BID PO Last administered on 05/09/17 08 :50; Admin Dose 50 MG; Start 05/06/17 at 21:00 Pantoprazole (Protonix Tab) 40 mg DAILY@06 PO Last administered on 05/09/17 06:11; Admin Dose 40 MG; Start 05/07/17 at 06:00 Diagnostic Test (Pha) (Accu-Chek) 1 ea 02 XX Last administered on 05/09/17 02 :26; Admin Dose 1 EA; Start 05/07/17 at 02:00 Miscellaneous Information 1 ea NOTE XX ; Start 05/06/17 at 18:30 Glucose (Glutose) 15 gm Q15M PRN PO DECREASED GLUCOSE; Start 05/06/17 at 18:30 Glucose (Glutose) 22.5 gm Q15M PRN PO DECREASED GLUCOSE; Start 05/06/17 at 18: 30 Dextrose (D50w Syringe) 25 ml Q15M PRN IV DECREASED GLUCOSE; Start 05/06/17 at 18:30 Dextrose (D50w Syringe) 50 ml Q15M PRN IV DECREASED GLUCOSE; Start 05/06/17 at 18:30 Glucagon (Glucagen) 1 mg Q15M PRN IM DECREASED GLUCOSE; Start 05/06/17 at 18: 30 Glucose (Glutose) 15 gm Q15M PRN BUCCAL DECREASED GLUCOSE; Start 05/06/17 at 18:30 Lorazepam (Ativan) 0.5 mg Q4 PRN IV AGITATION Last administered on 05/08/17 17:19; Admin Dose 0.5 MG; Start 05/06/17 at 23:00 Levetiracetam (Keppra) 750 mg BID PO ; Start 05/09/17 at 21:00; Status ILAN GARZA MD May 09, 2017 10:30
--- NOTE | 2017-05-09 12:48 | CONS ---
Date/Time of Note Date/Time of Note DATE: 05/09/17 TIME: 12:47 Consult Date/Type/Reason Admit Date/Time May 06, 2017 at 15:25 Initial Consult Date 05/08/17 Type of Consultation: Neurology Reason for Consultation seizure Ordering Provider: ILAN CASTELAN MD Subjective continues to improve Objective Vital Signs Date Time Temp Pulse Resp B/P Pulse Ox O2 Delivery O2 Flow Rate FiO2 05/09/17 12:24 62 05/09/17 11:11 97.2 66 135/62 97 05/08/17 05:40 Room Air Intake and Output 05/08/17 05/08/17 05/09/17 15:00 23:00 07:00 Intake Total 900 ml 1015.0 ml 550 ml Balance 900 ml 1015.0 ml 550 ml Exam awake alert oriented x2 follows command w repeat stimulation answers 1-2 words in response CN: LAUREN, blinks to threat appropriate no facial asymmetry palate upgoing uvula midline scm/trap intact Motor: right UE 5/5 RLE 5/5 LUE 4-/5 LLE 4-/5 Reflexes brisk on left 3+ Tremors present on left action Results/Medications Result Diagram: 05/09/1724 05/09/17 0724 Results 24 hrs Laboratory Tests Test 05/08/17 17:33 05/08/17 19:04 05/08/17 20:39 05/09/17 02:09 Bedside Glucose 226 H 182 145 184 Test 05/09/17 07:24 05/09/17 08:02 05/09/17 11:57 White Blood Count 9.8 Red Blood Count 4.06 L Hemoglobin 12.8 Hematocrit 39.2 Mean Corpuscular Volume 96.6 Mean Corpuscular Hemoglobin 31.5 Mean Corpuscular Hemoglobin Concent 32.7 Red Cell Distribution Width 12.4 Platelet Count 269 # Mean Platelet Volume 9.5 Neutrophils % 57.6 Lymphocytes % 32.3 Monocytes % 7.9 Eosinophils % 1.6 Basophils % 0.3 Nucleated Red Blood Cells % 0.0 Neutrophils # 5.7 Lymphocytes # 3.2 H Monocytes # 0.8 Eosinophils # 0.2 Basophils # 0.0 Nucleated Red Blood Cells # 0.0 Sodium Level 141 Potassium Level 3.8 Chloride Level 109 Carbon Dioxide Level 25 Anion Gap 11 Blood Urea Nitrogen 20 Creatinine 0.56 Glucose Level 184 Calcium Level 9.3 Total Bilirubin 0.2 Direct Bilirubin 0.00 Indirect Bilirubin 0.2 Aspartate Amino Transf (AST/SGOT) 18 Alanine Aminotransferase (ALT/SGPT) 27 Alkaline Phosphatase 67 Total Protein 6.3 Albumin 3.1 L Globulin 3.20 Albumin/Globulin Ratio 0.96 Bedside Glucose 218 214 Medications Current Medications Ondansetron HCl (Zofran Inj) 4 mg Q6H PRN IV NAUSEA AND/OR VOMITING; Start at 18:00 Acetaminophen (Tylenol Tab) 650 mg Q6H PRN PO PAIN LEVEL 1-3 OR FEVER; Start 05/06/17 at 18:00 Enoxaparin Sodium (Lovenox) 40 mg DAILY SC Last administered on 05/09/17 08: 58; Admin Dose 40 MG; Start 05/07/17 at 09:00 Dipyridamole/ Aspirin (Aggrenox) 1 cap BID PO Last administered on 05/09/17 08:50; Admin Dose 1 CAP; Start 05/06/17 at 21:00 Latanoprost (Xalatan) 1 drop QHS BOTH EYES Last administered on 05/08/17 20: 43; Admin Dose 1 DROP; Start 05/06/17 at 21:00 Losartan Potassium (Cozaar) 50 mg BID PO Last administered on 05/09/17 08:50 ; Admin Dose 50 MG; Start 05/06/17 at 21:00 Metoprolol Tartrate (Lopressor) 50 mg BID PO Last administered on 05/09/17 08 :50; Admin Dose 50 MG; Start 05/06/17 at 21:00 Pantoprazole (Protonix Tab) 40 mg DAILY@06 PO Last administered on 05/09/17 06:11; Admin Dose 40 MG; Start 05/07/17 at 06:00 Diagnostic Test (Pha) (Accu-Chek) 1 ea 02 XX Last administered on 05/09/17 02 :26; Admin Dose 1 EA; Start 05/07/17 at 02:00 Miscellaneous Information 1 ea NOTE XX ; Start 05/06/17 at 18:30 Glucose (Glutose) 15 gm Q15M PRN PO DECREASED GLUCOSE; Start 05/06/17 at 18:30 Glucose (Glutose) 22.5 gm Q15M PRN PO DECREASED GLUCOSE; Start 05/06/17 at 18: 30 Dextrose (D50w Syringe) 25 ml Q15M PRN IV DECREASED GLUCOSE; Start 05/06/17 at 18:30 Dextrose (D50w Syringe) 50 ml Q15M PRN IV DECREASED GLUCOSE; Start 05/06/17 at 18:30 Glucagon (Glucagen) 1 mg Q15M PRN IM DECREASED GLUCOSE; Start 05/06/17 at 18: 30 Glucose (Glutose) 15 gm Q15M PRN BUCCAL DECREASED GLUCOSE; Start 05/06/17 at 18:30 Lorazepam (Ativan) 0.5 mg Q4 PRN IV AGITATION Last administered on 05/08/17t 17:19; Admin Dose 0.5 MG; Start 05/06/17 at 23:00 Levetiracetam (Keppra) 750 mg BID PO ; Start 05/09/17 at 21:00 Assessment/Plan Chief Complaint/Hosp Course 72 yo female with 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 Recommendations: MRI negative for acute ischemic changes Recommend Keppra increase to 750 mg q12h continue seizure precautions she will also require further outpatient neurology fu dc planning Problems: HAYES LEON MD May 09, 2017 12:48
[2017-05-09] MEDS: LORAZEPAM 2 MG INJ IV PRN (20:25)
[2017-05-09] MEDS: LATANOPROST 0.005% 2.5 ML OPH BOTH EYES SCH (20:26)
[2017-05-09] MEDS: LEVETIRACETAM 750 MG TAB PO SCH (21:55)
[2017-05-10] MEDS: ACCU-CHEK XX SCH (01:35)
[2017-05-10 02:00] VITALS: BP 147/66; RESP 20
[2017-05-10] MEDS: LORAZEPAM 2 MG INJ IV PRN ×2 (03:05→23:50)
[2017-05-10] MEDS: PANTOPRAZOLE (EC) 40 MG TAB PO SCH (06:30)
[2017-05-10 07:35] VITALS: BP 177/75; RESP 20
[2017-05-10] MEDS: INSULIN ASPART [NOVOLOG] 3 ML PEN SC SCH ×4 (08:00→23:27)
[2017-05-10] MEDS: ENOXAPARIN 40 MG/0.4 ML SYG SC SCH (08:34)
--- NOTE | 2017-05-10 10:00 | PN ---
Date/Time of Note Date/Time of Note DATE: 05/10/17 TIME: 09:55 Assessment/Plan VTE Prophylaxis VTE Prophylaxis Intervention: LMWH Lines/Catheters IV [facility] ([facility] Peripheral IV Urinary Cath still in place: No Assessment/Plan Chief Complaint/Hosp Course 1. Altered level of consciousness with left-sided weakness. The left sided weakness has resolved. She is now back to her baseline neurologic status and mental status. Rule out seizures, possible TIA, history of anxiety disorder. She was seen by neurology and her Keppra dose was increased to 750 mg twice a day. She is overall improved. Probably back to her baseline mental and neurologic status. Her brother is in the room with her and he agrees. 2. Hypertension 3. Type 2 diabetes mellitus 4. Hyperlipidemia , the patient is on a statin drug. 5. discharge planning for tomorrow . Problems: Subjective 24 Hr Interval Summary Free Text/Dictation She is awake and responsive today . She seems to be back to her baseline mental and neurologic status . Constitutional: no complaints Cardiovascular: no complaints Gastrointestinal: no complaints Genitourinary: no complaints Musculoskeletal: no complaints Neurologic: no complaints Exam/Review of Systems Vital Signs Vitals Vital Signs Date Time Temp Pulse Resp B/P Pulse Ox O2 Delivery O2 Flow Rate FiO2 05/10/17 07:35 97.9 55 20 177/75 98 05/08/17 05:40 Room Air Intake and Output 05/09/17 05/09/17 05/10/17 15:00 23:00 07:00 Intake Total 907.5 ml 120 ml Balance 907.5 ml 120 ml Exam Constitutional: alert, frail, oriented Respiratory: clear to auscultation, normal air movement Cardiovascular: regular rate and rhythm Gastrointestinal: non-tender, soft Musculoskeletal: nl extremities to inspection Results Result Diagram: 05/09/17 0724 05/09/17 0724 Results 24 hrs Laboratory Tests Test 05/09/17 11:57 05/09/17 17:30 05/09/17 20:30 05/10/17 01:33 Bedside Glucose 214 206 197 195 Test 05/10/17 08:01 Bedside Glucose 139 Medications Medications Current Medications Ondansetron HCl (Zofran Inj) 4 mg Q6H PRN IV NAUSEA AND/OR VOMITING; Start at 18:00 Acetaminophen (Tylenol Tab) 650 mg Q6H PRN PO PAIN LEVEL 1-3 OR FEVER; Start 05/06/17 at 18:00 Enoxaparin Sodium (Lovenox) 40 mg DAILY SC Last administered on 05/10/17 08: 34; Admin Dose 40 MG; Start 05/07/17 at 09:00 Dipyridamole/ Aspirin (Aggrenox) 1 cap BID PO Last administered on 05/09/17 21:55; Admin Dose 1 CAP; Start 05/06/17 at 21:00 Latanoprost (Xalatan) 1 drop QHS BOTH EYES Last administered on 05/09/17 20: 26; Admin Dose 1 DROP; Start 05/06/17 at 21:00 Losartan Potassium (Cozaar) 50 mg BID PO Last administered on 05/09/17 21:55 ; Admin Dose 50 MG; Start 05/06/17 at 21:00 Metoprolol Tartrate (Lopressor) 50 mg BID PO Last administered on 05/09/17 21 :55; Admin Dose 50 MG; Start 05/06/17 at 21:00 Pantoprazole (Protonix Tab) 40 mg DAILY@06 PO Last administered on 05/10/17 06:30; Admin Dose 40 MG; Start 05/07/17 at 06:00 Diagnostic Test (Pha) (Accu-Chek) 1 ea 02 XX Last administered on 05/09/17 02 :26; Admin Dose 1 EA; Start 05/07/17 at 02:00 Miscellaneous Information 1 ea NOTE XX ; Start 05/06/17 at 18:30 Glucose (Glutose) 15 gm Q15M PRN PO DECREASED GLUCOSE; Start 05/06/17 at 18:30 Glucose (Glutose) 22.5 gm Q15M PRN PO DECREASED GLUCOSE; Start 05/06/17 at 18: 30 Dextrose (D50w Syringe) 25 ml Q15M PRN IV DECREASED GLUCOSE; Start 05/06/17 at 18:30 Dextrose (D50w Syringe) 50 ml Q15M PRN IV DECREASED GLUCOSE; Start 05/06/17 at 18:30 Glucagon (Glucagen) 1 mg Q15M PRN IM DECREASED GLUCOSE; Start 05/06/17 at 18: 30 Glucose (Glutose) 15 gm Q15M PRN BUCCAL DECREASED GLUCOSE; Start 05/06/17 at 18:30 Lorazepam (Ativan) 0.5 mg Q4 PRN IV AGITATION Last administered on 05/10/17 03:05; Admin Dose 0.5 MG; Start 05/06/17 at 23:00 Levetiracetam (Keppra) 750 mg BID PO Last administered on 05/09/17 21:55; Admin Dose 750 MG; Start 05/09/17 at 21:00 ILAN CASTELAN MD May 10, 2017 10:00
[2017-05-10] MEDS: DIPYRIDAMOLE/ASPIRIN (SR) CAP PO SCH ×2 (10:41→21:42)
[2017-05-10] MEDS: LEVETIRACETAM 750 MG TAB PO SCH ×2 (10:41→21:41)
[2017-05-10] MEDS: METOPROLOL 50 MG TAB PO SCH ×2 (10:42→21:43)
[2017-05-10] MEDS: LOSARTAN 50 MG TAB PO SCH ×2 (10:42→21:43)
[2017-05-10 13:04] VITALS: BP 161/76; RESP 18
[2017-05-10] MEDS: metFORMIN 500 MG TAB PO SCH (17:36)
[2017-05-10 20:00] VITALS: BP 155/71; RESP 18
[2017-05-10] MEDS: LATANOPROST 0.005% 2.5 ML OPH BOTH EYES SCH (21:49)
[2017-05-11 02:00] VITALS: BP 135/60; RESP 18
[2017-05-11] MEDS: ACCU-CHEK XX SCH (02:00)
[2017-05-11] MEDS: PANTOPRAZOLE (EC) 40 MG TAB PO SCH (05:44)
[2017-05-11 07:56] VITALS: BP 175/72; RESP 20
[2017-05-11] MEDS: INSULIN ASPART [NOVOLOG] 3 ML PEN SC SCH ×3 (08:00→12:06)
[2017-05-11] MEDS: DIPYRIDAMOLE/ASPIRIN (SR) CAP PO SCH (09:20)
[2017-05-11] MEDS: METOPROLOL 50 MG TAB PO SCH (09:21)
[2017-05-11] MEDS: LEVETIRACETAM 750 MG TAB PO SCH (09:21)
[2017-05-11] MEDS: metFORMIN 500 MG TAB PO SCH ×2 (09:21→17:46)
[2017-05-11] MEDS: LOSARTAN 50 MG TAB PO SCH (09:22)
[2017-05-11] MEDS: ENOXAPARIN 40 MG/0.4 ML SYG SC SCH (09:36)
--- NOTE | 2017-05-11 16:09 | PDOCDIS ---
Discharge Instructions CONDITION Patient Condition: Fair HOME CARE INSTRUCTIONS: Diet Instructions: Reduced CalorieSpecial Diet: cardiac ACTIVITY: Activity Restrictions: Slowly Increase Activity Rest between Activity Do not Drive Weight Bearing Bathing Restrictions: Sponge Bath FOLLOW UP/APPOINTMENTS Follow-up Plan Dr Cameron and Dr Stefanie Shin and give the brother the phone number for Dr Shin . ILAN CASTELAN MD May 11, 2017 16:09
[2017-05-11] MEDS ORDERED: LEVE750T70 PO (16:11)
--- NOTE | 2017-05-12 05:26 | DS ---
DATE OF ADMISSION: 05/06/2017 DATE OF DISCHARGE: 05/11/2017 HISTORY OF PRESENT ILLNESS AND HOSPITAL COURSE: This 72-year-old female with multiple medical problems was admitted through the emergency room after she presented with altered level of consciousness. The patient is cared for by her brother. She was brought in after she became unresponsive. The patient had a CAT scan of the brain, neck and brain CTA, and an MRI of the brain. There was no evidence of an acute thrombus or vessel occlusion on the CTA. It did show severe multifocal stenosis. 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 The patient eventually got back to her normal baseline mental status and neurologic status. The patient was seen in consultation by Dr. Mihaela Santos , a neurologist. Dr. Santos recommended increasing the Keppra that the patient was taking. The Keppra was increased to 750 mg q.12 hours. She also recommended follow up in neurologic evaluation as an outpatient. There was no definite diagnosis or explanation for the patient's altered mental status. One possibility is the patient is having seizure activity; however, there was no witnessed myoclonic episodes. The other possibility is TIA; however, she has had multiple episodes like this without any ongoing neurologic new deficit. The last possibility that this is some sort of anxiety/psychological reaction. The patient does have a generalized anxiety disorder. I have had multiple discussions with the patient's brother. He understands her situation. He is willing to take her home. He cares for her on an ongoing basis and is very attentive to her needs. The patient will be sent home today to the care of her brother. Home health will be resumed. The patient was in fair condition at the time of discharge. DISCHARGE MEDICATIONS WILL BE FOLLOWS: 1. Metformin 500 mg twice a day. 2. Keppra 750 mg twice a day. 3. Pantoprazole 40 mg a day. 4. Lorazepam 0.5 mg 3 times a day as needed for anxiety. 5. Aggrenox 1 capsule twice a day. 6. Xalatan eyedrops to both eyes at bedtime. 7. Losartan 50 mg twice a day. 8. Metoprolol 50 mg twice a day. 9. Acetaminophen 650 q.4 hours p.r.n. pain. The patient was told to follow up with Dr. Shin, a local neurologist who works with Dr. Santos. The patient will also see me in my office in follow up in several weeks. The patient was a DNR while in the hospital. This will be continued. DISCHARGE DIAGNOSES: 1. Altered level of consciousness, etiology unclear, although patient is back to normal mental neurologic status. No obvious acute neurologic event. 2. Hypertension. 3. History of cerebrovascular accident, right-sided with left-sided weakness. 4. Urinary tract infections. 5. Generalized anxiety disorder 6 type 2 diabetes mellitus Dictated By: ILAN CASTELAN MD, ND/NTS Conf#: [id number] DID#: [id number] LEYDI
== END 2017-05-11 18:00 | disposition home health service (06) | DRG 948 ==
LOC: E/R 11:53 → TEL 15:25 → MS2 05-09 18:12
PROVIDERS: ADMIT Internal Medicine; ATTEND Internal Medicine
DX: R41.82 Altered mental status, unspecified (principal); E11.22 Type 2 diabetes mellitus with diabetic chronic kidney disease; I69.954 Hemiplegia and hemiparesis following unspecified cerebrovascular disease affecting left non-dominant side; I16.1 Hypertensive emergency; G40.909 Epilepsy, unspecified, not intractable, without status epilepticus; E78.5 Hyperlipidemia, unspecified; Z79.84 Long term (current) use of oral hypoglycemic drugs; Z95.5 Presence of coronary angioplasty implant and graft; Z87.891 Personal history of nicotine dependence; F41.9 Anxiety disorder, unspecified; I10 Essential (primary) hypertension; R40.1 Stupor; F41.1 Generalized anxiety disorder; I12.9 Hypertensive chronic kidney disease with stage 1 through stage 4 chronic kidney disease, or unspecified chronic kidney disease; N18.3 Chronic kidney disease, stage 3 (moderate)
CPT/HCPCS: 36415; 70450; 70496; 70498; 70551; 71010; 80053; 80177; 80307; 81003; 82962; 83036; 84484; 85025; 85610; 85730; 87081; 92526; 92610; 93005; 96374; 96375; 97110; 97161; 97530; J1650; J1815; J1953; J2060; J7042; Q9967

== ENCOUNTER 2018-05-24 15:50 | Inpatient (IN) | END 2018-05-27 18:55 | DRG 641 ==

== ENCOUNTER 2018-05-27 19:04 | Inpatient (IN) | END 2018-06-04 13:27 | DRG 602 ==